=== PATIENT | male | born 1955 | race Caucasian/White ===

== ENCOUNTER 2017-05-19 10:36 | Emergency (ER) | payer MEDICARE, MEDICAID ==
[2017-05-19 11:59] LABS: ABS Basophils 0.1 10^3/ul (0-0.2); ABS Eosinophils 0 10^3/ul (0-0.6); ABS Lymphocytes 1.2 10^3/ul (1.0-4.8); ABS Monocytes 0.5 10^3/ul (0-0.8); ABS Neutrophils 3.1 10^3/ul (1.5-7.7); ABS Nucleated RBC 0 10^3/ul; Eosinophil % 0.6 % (0-6); Hematocrit 39 % (42-52); Hemoglobin 13.9 g/dl (14.0-18.0); Lymphocyte % 24.2 % (25-47); Mean Corpuscular HGB Conc 35 g/dl (31-36); Mean Corpuscular Hemoglobin 33 pg (27-31); Mean Corpuscular Volume 93 fL (80-94); Mean Platelet Volume 7 um3 (7.4-10.4); Nucleated Red Blood Cells % 0; Platelet Count 198 10^3/ul (150-450); Red Blood Count 4.25 10^6/ul (4.0-5.4); Red Cell Distribution Width 13 % (10.5-15); White Blood Count 4.9 10^3/ul (3.5-10.8)
[2017-05-19 12:12] LABS: EGFR Non-African American 91.6 (>60)
[2017-05-19] MEDS ORDERED: Iohexol 300* (CONTRAST) 10 ML SDV IV ONE (12:15)
--- NOTE | 2017-05-19 13:01 | RAD ---
indication: Left-sided facial pain and swelling COMPARISON: CT of the brain May 02, [address] scan of the maxillofacial bones was performed without intravenous contrast enhancement. Contiguous axial sections were obtained from the level of the hyoid bone to just above the frontal sinuses. Findings: There is a heterogeneous soft tissue mass extending from the left maxillary sinus that causes thinning and expansion of the borders of the maxillary sinus with destruction along the anterior margin of the sinus. The mass measures 4.0 x 6.5 cm in the axial plane and 5.7 cm in the cephalocaudal projection. Depicted best on the coronal plane images there is superior distention of the floor of the orbit which compresses the periorbital fat and nearly abuts the inferior margin of the globe. The remaining maxillofacial bones are intact. The remaining paranasal sinuses are adequately aerated. There is no cervical chain lymphadenopathy. Visualized brain: The limited views of the brain do not demonstrate any acute abnormality or extra-axial hemorrhage. IMPRESSION: There is a soft tissue mass extending from the left maxillary sinus causing thinning and expansion of the borders of the maxillary sinus and destruction of the anterior wall of the maxillary sinus. Malignancy is the primary consideration such as squamous cell carcinoma. Inverted papilloma is in the differential as well.
[2017-05-19 14:21] VITALS: BP 118/78
--- NOTE | 2017-05-19 14:31 | ED ---
April Hernández Nilda, scribed for Otto Sims MD on 05/19/17 at 1130 . Throat Pain/Nasal Congestion - HPI Summary HPI Summary: This patient is a 62 year old M presenting to [facility] [place] accompanied by with a chief complaint of constant facial swelling to left side of face for about a month. The patient rates the pain 4/10 in severity. Symptoms aggravated and alleviated by nothing. states dentist extracted teeth and pt was given abx , and the procedure was repeated one week later. - History of Current Complaint Chief Complaint: EDFacialInjury Time Seen by Provider: 05/19/17 11:20 Hx Obtained From: Patient, Family/[place] - Onset/Duration: Gradual Onset, Lasting Weeks, Still Present Cough: None - Allergies/Home Medications Allergies/Adverse Reactions: Allergies Allergy/AdvReac Type Severity Reaction Status Date / Time No Known Allergies Allergy Verified 05/02/13 09:44 PMH/Surg Hx/FS Hx/Imm Hx Endocrine/Hematology History: Reports: Hx Anemia Denies: Hx Diabetes, Hx Systemic Lupus Erythematosus Cardiovascular History: Reports: Hx Congenital Heart Disease, Hx Coronary Artery Disease Denies: Hx Congestive Heart Failure, Hx Hypertension, Other Cardiovascular Problems/Disorders Respiratory History: Reports: Hx Chronic Bronchitis Denies: Other Respiratory Problems/Disorders GI History: Denies: Other GI Disorders History: Reports: Hx Kidney Stones, Hx Renal Disease - left hydro Denies: Hx Dialysis Musculoskeletal History: Denies: Hx Rheumatoid Arthritis, Other Musculoskeletal History Sensory History: Reports: Hx Contacts or Glasses, Hx Glaucoma Denies: Hx Hearing Aid Opthamlomology History: Reports: Hx Contacts or Glasses, Hx Glaucoma Neurological History: Reports: 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 KIDNEY STONES, 2005, [facility] [place] Anesthesia Reactions: No - Immunization History Date of Tetanus Vaccine: Unk Date of Influenza Vaccine: Unk Infectious Disease History: No Infectious Disease History: Denies: Traveled Outside the [place] in Last 30 Days - Family History Known Family History: Positive: Cardiac Disease - Social History Alcohol Use: None Substance Use Type: Reports: None Smoking Status (MU): Never Smoked Tobacco Have You Smoked in the Last Year: No Review of Systems Positive: Other - facial swelling left side Negative: Shortness Of Breath All Other Systems Reviewed And Are Negative: Yes Physical Exam - Summary Physical Exam Summary: VITAL SIGNS: Reviewed. GENERAL: Patient is a well-developed and nourished female who is lying comfortable in the stretcher. Patient is not in any acute respiratory distress. HEAD AND FACE: No ecchymosis, hematomas or skull depressions. No sinus tenderness. Facial swelling right side of face. EYES: PERRLA, EOMI x 2, No injected conjunctiva, no nystagmus. EARS: Hearing grossly intact. Ear canals and tympanic membranes are within normal limits. MOUTH: Oropharynx within normal limits. Poor dental hygiene. No trismus, no swelling of tongue, airway patent. NECK: Supple, trachea is midline, no adenopathy, no JVD, no carotid bruit, no c- spine tenderness, neck with full ROM. CHEST: Symmetric, no tenderness at palpation LUNGS: Clear to auscultation bilaterally. No wheezing or crackles. CVS: Regular rate and rhythm, S1 and S2 present, no murmurs or gallops appreciated. ABDOMEN: Soft, non-tender. No signs of distention. No rebound no guarding, and no masses palpated. Bowel sounds are normal. EXTREMITIES: FROM in all major joints, no edema, no cyanosis or clubbing. NEURO: Alert and oriented x 3. No acute neurological deficits. Speech is normal and follows commands. SKIN: Dry and warm Triage Information Reviewed: Yes Vital Signs On Initial Exam: Initial Vitals Temp Pulse Resp BP Pulse Ox 98.4 F 100 20 141/83 97 05/19/17 10:43 05/19/17 10:43 05/19/17 10:43 05/19/17 10:43 05/19/17 10:43 Vital Signs Reviewed: Yes Diagnostics - Vital Signs Vital Signs Temp Pulse Resp BP Pulse Ox 05/19/17 10:43 98.4 F 100 20 141/83 97 - Laboratory Lab Results: Lab Results 05/19/17 05/19/17 05/19/17 Range/Units 11:47 11:47 11:47 WBC 4.9 (3.5-10.8) 10^3/ul RBC 4.25 (4.0-5.4) 10^6/ul Hgb 13.9 L (14.0-18.0) g/dl Hct 39 L (42-52) % MCV 93 (80-94) fL MCH 33 H (27-31) pg MCHC 35 (31-36) g/dl RDW 13 (10.5-15) % Plt Count 198 (150-450) 10^3/ul MPV 7 L (7.4-10.4) um3 Neut % (Auto) 63.5 (38-83) % Lymph % (Auto) 24.2 L (25-47) % Grant % (Auto) 10.5 H (1-9) % Eos % (Auto) 0.6 (0-6) % Baso % (Auto) 1.2 (0-2) % Absolute Neuts (auto) 3.1 (1.5-7.7) 10^3/ul Absolute Lymphs (auto) 1.2 (1.0-4.8) 10^3/ul Absolute Monos (auto) 0.5 (0-0.8) 10^3/ul Absolute Eos (auto) 0 (0-0.6) 10^3/ul Absolute Basos (auto) 0.1 (0-0.2) 10^3/ul Absolute Nucleated RBC 0 10^3/ul Nucleated RBC % 0 Sodium 138 (133-145) mmol/L Potassium 4.0 (3.5-5.0) mmol/L Chloride 107 (101-111) mmol/L Carbon Dioxide 26 (22-32) mmol/L Anion Gap 5 (2-11) mmol/L BUN 18 (6-24) mg/dL Creatinine 0.85 (0.67-1.17) mg/dL Est GFR ( Amer) 117.9 (>60) Est GFR (Non-Af Amer) 91.6 (>60) BUN/Creatinine Ratio 21.2 H (8-20) Glucose 93 (70-100) mg/dL Lactic Acid 0.7 (0.5-2.0) mmol/L Calcium 9.4 (8.6-10.3) mg/dL Total Bilirubin 0.50 (0.2-1.0) mg/dL AST 21 (13-39) U/L ALT 18 (7-52) U/L Alkaline Phosphatase 53 (34-104) U/L C-Reactive Protein < 1.00 (< 5.00) mg/L Total Protein 7.3 (6.4-8.9) g/dL Albumin 4.3 (3.2-5.2) g/dL Globulin 3.0 (2-4) g/dL Albumin/Globulin Ratio 1.4 (1-3) Result Diagrams: 05/19/17 11:47 05/19/17 11:47 Lab Statement: Any lab studies that have been ordered have been reviewed, and results considered in the medical decision making process. - CT Maxillofacial CT Interpretation Completed By: Radiologist - CT Maxillofacial, per radiologist , reveals there is a soft tissue mass extending from the left maxillary sinus causing thinning and expansion of the borders of the maxillary sinus and destruction of the anterior wall of the maxillary sinus. Malignancy is the primary consideration such as squamous cell carcinoma. Inverted papilloma is in the differential as well. Dr. Sims has reviewed this radiology report. Re-Evaluation - Re-Evaluation First Eval Re-Evaluation Time: 13:46 Comment: Reviewed imaging results with pt. EENT Course/Dx - Course Assessment/Plan: This patient is a 62 year old Male presenting to [facility] accompanied by sister with a chief complaint of constant facial swelling to left side of face for about a month. The patient rates the pain 4/10 in severity. Symptoms aggravated and alleviated by nothing. Sister states dentist extracted teeth one month ago and patient was given abx As per Sister dentis try to aspirate what he believed it was an abcess but he was unsuccessfull. Lab tests are without significant abnormalities except for slight anemia. CT Maxillofacial, per radiologist, reveals there is a soft tissue mass extending from the left maxillary sinus causing thinning and expansion of the borders of the maxillary sinus and destruction of the anterior wall of the maxillary sinus. Malignancy is the primary consideration such as squamous cell carcinoma. Inverted papilloma is in the differential as well. Dr. Sims has reviewed this radiology report. Since the pt has this new maxillary expanding mass, I discussed with the Transfer Center and they recommended that the pt be transferred to the [facility] for an ENT consult. The pt was auto-accepted by Dr. Mackenzie. The patient is hemodynamically stable, alert and oriented x3. - Differential Diagnoses Differential Diagnoses: Cellulitis, Foreign Body, Gingivitis, Mandibular/ Maxillary Trauma, Periodontic Abscess, Periodontic Disease, Post-Extraction Pain , Tonsilitis - Diagnoses Provider Diagnoses: Maxillary sinus mass - Provider Notifications Discussed Care Of Patient With: [facility] - Transfer Center Time Discussed With Above Provider: 13:58 Instructed by Provider To: Transfer - Spoke with transfer center ([facility]) who is reporting they are unable to get ENT at this point probably due to physician in surgery. She recommends transfer to [facility] for ENT evaluation. Discharge - Discharge Plan Condition: Stable Disposition: TRANS HIGHER LVL OF CARE FAC Discharge Disposition Comment: transfer to [facility] Referrals: Pete Ledezma MD [Primary Care Provider] - The documentation as recorded by the April baxter Nilda accurately reflects the service I personally performed and the decisions made by me, Otto Sims MD.
== END 2017-05-19 14:38 | disposition short-term general hospital (02) ==
LOC: ED 10:36
DX: J34.1 Cyst and mucocele of nose and nasal sinus (principal); Z86.2 Personal history of diseases of the blood and blood-forming organs and certain disorders involving the immune mechanism; Z86.79 Personal history of other diseases of the circulatory system
CPT/HCPCS: 36415; 70487; 80053; 83605; 85025; 86140; 87040; 99282; Q9967

== ENCOUNTER 2017-07-22 16:08 | Emergency (ER) | payer MEDICARE, MEDICAID ==
[2017-07-22] MEDS ORDERED: NS 0.9% 1000 ML* 1,000 ML IV ONE (17:53)
[2017-07-22 18:18] LABS: ABS Basophils 0.1 10^3/ul (0-0.2); ABS Eosinophils 0.1 10^3/ul (0-0.6); ABS Lymphocytes 0.7 10^3/ul (1.0-4.8); ABS Monocytes 1.2 10^3/ul (0-0.8); ABS Neutrophils 6.5 10^3/ul (1.5-7.7); ABS Nucleated RBC 0 10^3/ul; Eosinophil % 0.7 % (0-6); Hematocrit 29 % (42-52); Hemoglobin 9.9 g/dl (14.0-18.0); Lymphocyte % 8.3 % (25-47); Mean Corpuscular HGB Conc 34 g/dl (31-36); Mean Corpuscular Hemoglobin 32 pg (27-31); Mean Corpuscular Volume 94 fL (80-94); Mean Platelet Volume 6.8 um3 (7.4-10.4); Nucleated Red Blood Cells % 0; Platelet Count 449 10^3/ul (150-450); Red Cell Distribution Width 14 % (10.5-15); White Blood Count 8.6 10^3/ul (3.5-10.8)
[2017-07-22 18:47] LABS: EGFR Non-African American 89.2 (>60)
[2017-07-22] MEDS ORDERED: Cephalexin CAP* 500 MG PO ONE (19:40)
[2017-07-22 20:01] VITALS: BP 110/69
--- NOTE | 2017-07-22 21:39 | ED ---
ED Suture/Wound Check - HPI Summary HPI Summary: Pt. is a 62 y.o male who presents to the ER for wound evaluation. Pt. has a history of face/neck cancer and had reconstructive facial surgery performed roughly 2 weeks ago. Pt. has skin grafts taken from bilateral anterior thighs. He is not on chemotherapy. Family states that they noticed today that incisions started to look warm, red and swollen. No associated symptoms of fever, N/V, AMS. No purulent drainage. Symptoms are moderate in severity. Pt. has an apt. with his surgeon tomorrow in [place]. No current modifying factors. Is currently not on antibiotics. - History Of Current Complaint Chief Complaint: EDExtremityLower Stated Complaint: POSSIBLE INFECTION ON BOTH LEGS Time Seen by Provider: 07/22/17 17:42 Pain Intensity: 3 Pain Scale Used: 0-10 Numeric - Allergies/Home Medications Allergies/Adverse Reactions: Allergies Allergy/AdvReac Type Severity Reaction Status Date / Time No Known Allergies Allergy Verified 07/22/17 17:38 PMH/Surg Hx/FS Hx/Imm Hx Endocrine/Hematology History: Reports: Hx Anemia Denies: Hx Diabetes, Hx Systemic Lupus Erythematosus Cardiovascular History: Reports: Hx Congenital Heart Disease, Hx Coronary Artery Disease Denies: Hx Congestive Heart Failure, Hx Hypertension, Other Cardiovascular Problems/Disorders Respiratory History: Reports: Hx Chronic Bronchitis Denies: Other Respiratory Problems/Disorders GI History: Denies: Other GI Disorders History: Reports: Hx Kidney Stones, Hx Renal Disease - left hydro Denies: Hx Dialysis Musculoskeletal History: Denies: Hx Rheumatoid Arthritis, Other Musculoskeletal History Sensory History: Reports: Hx Contacts or Glasses, Hx Glaucoma Denies: Hx Hearing Aid Opthamlomology History: Reports: Hx Contacts or Glasses, Hx Glaucoma Neurological History: Reports: 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 KIDNEY STONES[place] [facility] [place] Anesthesia Reactions: No - Immunization History Date of Tetanus Vaccine: Unk Date of Influenza Vaccine: Unk Infectious Disease History: No Infectious Disease History: Denies: Traveled Outside the [place] in Last 30 Days - Family History Known Family History: Positive: Cardiac Disease - Social History Alcohol Use: None Substance Use Type: Reports: None Smoking Status (MU): Never Smoked Tobacco Have You Smoked in the Last Year: No Review of Systems Constitutional: Negative Negative: Fever, Chills Eyes: Negative ENT: Negative Cardiovascular: Negative Respiratory: Negative Gastrointestinal: Negative Positive: Other - swelling and redness to bilateral incisions on legs Neurological: Negative All Other Systems Reviewed And Are Negative: Yes Physical Exam Triage Information Reviewed: Yes Vital Signs On Initial Exam: Initial Vitals Temp Pulse Resp BP Pulse Ox 98.7 F 138 20 112/68 100 07/22/17 16:10 07/22/17 16:10 07/22/17 16:10 07/22/17 16:10 07/22/17 16:10 Vital Signs Reviewed: Yes Appearance: Positive: Well-Appearing - Pt. lying in bed in NAD. Family present. Skin: Positive: Warm, Dry Head/Face: Positive: Normal Head/Face Inspection Eyes: Positive: Normal, JIGAR Respiratory/Lung Sounds: Positive: Clear to Auscultation, Breath Sounds Present Cardiovascular: Positive: Normal, RRR Musculoskeletal: Positive: Other - Healing incisions with ricardo noted to bilateral upper anterior LEs. Wound edges are erythematous and warm. Areas of fluctuance noted to both incisions, most consistent with seroma. No induration or signs of abscess. No purulent drainage. No calf edema or pain bilaterally. Neurological: Positive: Normal Diagnostics - Vital Signs Vital Signs Temp Pulse Resp BP Pulse Ox 07/22/17 20:01 99.2 F 88 16 110/69 98 07/22/17 20:00 99.2 F 88 16 110/69 100 07/22/17 16:10 98.7 F 138 20 112/68 100 - Laboratory Lab Results: Lab Results 07/22/17 07/22/17 Range/Units 18:02 18:02 WBC 8.6 (3.5-10.8) 10^3/ul RBC 3.10 L (4.0-5.4) 10^6/ul Hgb 9.9 L (14.0-18.0) g/dl Hct 29 L (42-52) % MCV 94 (80-94) fL MCH 32 H (27-31) pg MCHC 34 (31-36) g/dl RDW 14 (10.5-15) % Plt Count 449 (150-450) 10^3/ul MPV 6.8 L (7.4-10.4) um3 Neut % (Auto) 75.7 (38-83) % Lymph % (Auto) 8.3 L (25-47) % Jennings % (Auto) 14.4 H (0-7) % Eos % (Auto) 0.7 (0-6) % Baso % (Auto) 0.9 (0-2) % Absolute Neuts (auto) 6.5 (1.5-7.7) 10^3/ul Absolute Lymphs (auto) 0.7 L (1.0-4.8) 10^3/ul Absolute Monos (auto) 1.2 H (0-0.8) 10^3/ul Absolute Eos (auto) 0.1 (0-0.6) 10^3/ul Absolute Basos (auto) 0.1 (0-0.2) 10^3/ul Absolute Nucleated RBC 0 10^3/ul Nucleated RBC % 0 Sodium 140 (139-145) mmol/L Potassium 4.1 (3.5-5.0) mmol/L Chloride 101 (101-111) mmol/L Carbon Dioxide 33 H (22-32) mmol/L Anion Gap 6 (2-11) mmol/L BUN 16 (6-24) mg/dL Creatinine 0.87 (0.67-1.17) mg/dL Est GFR ( Amer) 114.7 (>60) Est GFR (Non-Af Amer) 89.2 (>60) BUN/Creatinine Ratio 18.4 (8-20) Glucose 82 (70-100) mg/dL Calcium 8.9 (8.6-10.3) mg/dL Total Bilirubin 0.30 (0.2-1.0) mg/dL AST 14 (13-39) U/L ALT 27 (7-52) U/L Alkaline Phosphatase 83 (34-104) U/L C-Reactive Protein 23.88 H (< 5.00) mg/L Total Protein 7.0 (6.4-8.9) g/dL Albumin 3.7 (3.2-5.2) g/dL Globulin 3.3 (2-4) g/dL Albumin/Globulin Ratio 1.1 (1-3) Result Diagrams: 07/22/17 18:02 07/22/17 18:02 Lab Statement: Any lab studies that have been ordered have been reviewed, and results considered in the medical decision making process. Course/Dx - Course Course Of Treatment: Pt. presenting for evaluation of possible wound infections. He is afebrile with stable vital signs. Labs were obtained which show a normal WBC. CRP is elevated at 28. He does appear to have the start of a mild cellulitis on exam. No evidence of abscess. He does have seromas. Case discussed briefly with Dr. Parkinson. Will start on Keflex QID. Pt. already has a scheduled apt. with his sx tomorrow. Advised to return to ER sooner for fever, increased redness, swelling, purulent drainage. Pt. and family understand and agree with plan. - Clinical Impression Provider Diagnoses: Wound infection after surgery Discharge - Sign-Out/Discharge Documenting (check all that apply): Discharge - Discharge Plan Condition: Good Disposition: HOME Prescriptions: Cephalexin CAP* [Keflex CAP*] 500 mg PO QID 10 Days #40 cap Patient Education Materials: Cellulitis (ED), Seroma (DC) Referrals: Kelvin Manriquez MD [Primary Care Provider] - Additional Instructions: Follow up with your surgeon as scheduled Take antibiotic as directed Return to ER for increased redness, swelling, drainage, fever, vomiting - Billing Disposition and Condition Condition: GOOD Disposition: HOME
== END 2017-07-22 20:02 | disposition home or self-care (01) ==
LOC: ED 16:08
DX: L76.33 Postprocedural seroma of skin and subcutaneous tissue following a dermatologic procedure (principal); Y83.2 Surgical operation with anastomosis, bypass or graft as the cause of abnormal reaction of the patient, or of later complication, without mention of misadventure at the time of the procedure; Y92.9 Unspecified place or not applicable; Z85.828 Personal history of other malignant neoplasm of skin; R62.50 Unspecified lack of expected normal physiological development in childhood; Z87.442 Personal history of urinary calculi
CPT/HCPCS: 36415; 80053; 85025; 86140; 87040; 96360; 99282; A9270-GY

== ENCOUNTER 2017-08-10 17:13 | Emergency (ER) | payer MEDICARE, MEDICAID ==
[2017-08-10 18:51] VITALS: BP 0/0
== END 2017-08-10 18:51 | disposition left against medical advice (07) ==
LOC: ED 17:13
DX: G40.89 Other seizures (principal); Z53.21 Procedure and treatment not carried out due to patient leaving prior to being seen by health care provider

== ENCOUNTER 2017-11-01 18:59 | Inpatient (IN) | payer MEDICARE, MEDICAID ==
[2017-11-01] MEDS ORDERED: Aspirin 81 mg CHEW TAB* 81 MG TAB.CHEW PO ONE (19:23)
[2017-11-01] MEDS ORDERED: LORazepam INJ* 2 MG/ML 1 ML VIAL IV PUSH ONE ×2 (19:32→19:53)
[2017-11-01 19:41] LABS: ABS Basophils 0 10^3/ul (0-0.2); ABS Eosinophils 0 10^3/ul (0-0.6); ABS Lymphocytes 0.9 10^3/ul (1.0-4.8); ABS Monocytes 0.8 10^3/ul (0-0.8); ABS Neutrophils 5.1 10^3/ul (1.5-7.7); ABS Nucleated RBC 0 10^3/ul; Eosinophil % 0.3 % (0-6); Hematocrit 34 % (42-52); Hemoglobin 11.2 g/dl (14.0-18.0); Lymphocyte % 12.7 % (25-47); Mean Corpuscular HGB Conc 33 g/dl (31-36); Mean Corpuscular Hemoglobin 29 pg (27-31); Mean Corpuscular Volume 89 fL (80-94); Mean Platelet Volume 6.7 um3 (7.4-10.4); Nucleated Red Blood Cells % 0; Platelet Count 253 10^3/ul (150-450); Red Blood Count 3.81 10^6/ul (4.00-5.40); Red Cell Distribution Width 17 % (10.5-15); White Blood Count 6.8 10^3/ul (3.5-10.8)
[2017-11-01 19:49] LABS: INR 0.98 (0.77-1.02)
--- NOTE | 2017-11-01 19:53 | ED ---
Neurological HPI - HPI Summary HPI Summary: This is sahil Zapata documenting for attending Otto Sims MD. LEVEL 5 CAVEAT: The patient was unable to provide any hx due to post ictal state in the room. 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 He was over at his neighbors watching the news during onset , it was witnessed by his neighbors. They report the episode lasted about 10 minutes and in his post ictal state, he was confused and repetitive but that is his baseline. His neighbors report he has never had previous episodes of seizure. Per EMS, he lives with his sister who is a caregiver. En route, EMS reports that he was chatting all throughout about TV, baseball, and his bicycle. The patient operates at a 6 year old level. - History of Current Complaint Chief Complaint: EDSeizure Stated Complaint: SEIZURES Time Seen by Provider: 11/01/17 19:22 Hx Obtained From: EMS, Other: - neighbors who witnessed his seizure Hx From Patient Unobtainable Due To: Other - LEVEL 5 CAVEAT: The patient was unable to provide any hx due to post ictal state in the room. Onset/Duration: Sudden Onset, Started hours ago - at 1830, Resolved - but is in post ictal state Timing: Sudden Onset Current Severity: None Number of Seizures: 1 Pain Intensity: 0 Pain Scale Used: 0-10 Numeric Aggravating: Nothing Alleviating: Nothing - Allergy/Home Medications Allergies/Adverse Reactions: Allergies Allergy/AdvReac Type Severity Reaction Status Date / Time No Known Allergies Allergy Verified 08/10/17 17:15 Home Medications: Home Medications Dorzolamide/Timolol OPTH (NF) [Cosopt (NF)] 1 drop OPHTHALMIC BID 11/01/17 [ History Confirmed 11/01/17] PMH/Surg Hx/FS Hx/Imm Hx Endocrine/Hematology History: Reports: Hx Anemia Denies: Hx Diabetes, Hx Systemic Lupus Erythematosus Cardiovascular History: Reports: Hx Congenital Heart Disease, Hx Coronary Artery Disease Denies: Hx Congestive Heart Failure, Hx Hypertension, Other Cardiovascular Problems/Disorders Respiratory History: Reports: Hx Chronic Bronchitis Denies: Other Respiratory Problems/Disorders GI History: Denies: Other GI Disorders History: Reports: Hx Kidney Stones, Hx Renal Disease - left hydro Denies: Hx Dialysis Musculoskeletal History: Denies: Hx Rheumatoid Arthritis, Other Musculoskeletal History Sensory History: Reports: Hx Contacts or Glasses, Hx Glaucoma Denies: Hx Hearing Aid Opthamlomology History: Reports: Hx Contacts or Glasses, Hx Glaucoma Neurological History: Reports: 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 KIDNEY STONES, 2006, [facility] Hx Anesthesia Reactions: No - Immunization History Date of Tetanus Vaccine: Unk Date of Influenza Vaccine: Unk Infectious Disease History: No Infectious Disease History: Denies: Traveled Outside the [place] in Last 30 Days - Family History Known Family History: Positive: Cardiac Disease - Social History Alcohol Use: None Substance Use Type: Reports: None Smoking Status (MU): Never Smoked Tobacco Have You Smoked in the Last Year: No Review of Systems Neurological: Other - seizure (in his post ictal state, he was confused and repetitive but that is his baseline) All Other Systems Reviewed And Are Negative: No Physical Exam - Summary Physical Exam Summary: VITAL SIGNS: Reviewed. GENERAL: I was unable to get any history. The patient is a MALE that didnt seem to be in any distress but doesnt answer to any questions. He seems to be in a post ictal state. HEAD AND FACE: No signs of trauma. No ecchymosis, hematomas or skull depressions. No sinus tenderness. EYES: PERRLA, EOMI x 2, No injected conjunctiva, no nystagmus. LUNGS: Clear to auscultation bilaterally. No wheezing or crackles. CVS: Regular rhythm, slightly tachycardic, S1 and S2 present, no murmurs or gallops appreciated. ABDOMEN: Soft, non-tender. No signs of distention. No rebound no guarding, and no masses palpated. Bowel sounds are normal. EXTREMITIES: FROM in all major joints, no edema, no cyanosis or clubbing. He is actively moving all extremities. NEURO: Post ictal state. Unable to answer questions. Doesnt follow commands GCS 14 Triage Information Reviewed: Yes Vital Signs On Initial Exam: Initial Vitals Temp Pulse Resp BP Pulse Ox 98.7 F 112 23 121/73 97 11/01/17 19:06 11/01/17 19:06 11/01/17 19:06 11/01/17 19:06 11/01/17 19:06 Vital Signs Reviewed: Yes Diagnostics - Vital Signs Vital Signs Temp Pulse Resp BP Pulse Ox 11/01/17 19:38 16 11/01/17 19:07 106 19 118/72 98 11/01/17 19:06 98.7 F 111 22 121/73 97 - Laboratory Lab Results: Lab Results 11/01/17 Range/Units 19:35 WBC 6.8 (3.5-10.8) 10^3/ul RBC 3.81 L (4.00-5.40) 10^6/ul Hgb 11.2 L (14.0-18.0) g/dl Hct 34 L (42-52) % MCV 89 (80-94) fL MCH 29 (27-31) pg MCHC 33 (31-36) g/dl RDW 17 H (10.5-15) % Plt Count 253 (150-450) 10^3/ul MPV 6.7 L (7.4-10.4) um3 Neut % (Auto) 74.5 (38-83) % Lymph % (Auto) 12.7 L (25-47) % Borden % (Auto) 11.9 H (0-7) % Eos % (Auto) 0.3 (0-6) % Baso % (Auto) 0.6 (0-2) % Absolute Neuts (auto) 5.1 (1.5-7.7) 10^3/ul Absolute Lymphs (auto) 0.9 L (1.0-4.8) 10^3/ul Absolute Monos (auto) 0.8 (0-0.8) 10^3/ul Absolute Eos (auto) 0 (0-0.6) 10^3/ul Absolute Basos (auto) 0 (0-0.2) 10^3/ul Absolute Nucleated RBC 0 10^3/ul Nucleated RBC % 0 Result Diagrams: 11/02/17 05:21 11/02/17 05:22 Lab Statement: Any lab studies that have been ordered have been reviewed, and results considered in the medical decision making process. - Radiology CXR Radiology Interpretation Completed By: ED Physician - No acute cardiothoracic pathology. Pending radiologist official interpretation. - CT Brain CT CT Interpretation Completed By: Radiologist - No acute hemorrhage. Encephalomalacia of bilateral frontal lobes. 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 ED physician has reviewed this radiology report. Course/Dx - Course Assessment/Plan: This patient is a 62-year-old male who presents to the emergency department with a chief complaint of having a seizure. Im unable to obtain any history from the patient seemed he seems to be in a postictal state. However there AMS crew reports that the patient has history of developmental delay mild MR and seizures. They report that he usually goes every night to his neighbors house to watch the news and [place]. Today he was no difference onto he developed multiple seizures, unknown amount of seizures and also no length of the seizures. The patient seemed to be very uncomfortable moving in the stretcher all over the place therefore the patient was given Ativan to obtain a head CT and blood work. The patient was given IV fluids. Test results without any significant abnormality except for slight normocytic normochromic anemia, potassium at 3.3, glucose 163 year, lactic acid of 11.6. At this point the patient is resting comfortably in the stretcher. Head CT impression: No acute hemorrhage. Encephalomalacia of bilateral frontal lobes. Postsurgical changes in the left maxillary sinus carcinoma. Reassessment at 9: 50 PM: The patient is resting comfortably on the stretcher, vital signs are stable, at this point I discussed the case with Dr. Armstrong from neurology and he recommends fosphenytoin 18 mg per KG, and EEG in the morning, and admission to the hospitalist. I discussed the case with Dr. Miranda who accepted the patient for admission. At this point the patient is stable. We will follow- up the lactic acid of 11.6, I dont think the patient is having sepsis and in the other hand I think the lactic acid is high because of the multiple seizure episodes tonight. However I did send blood cultures and a repeat lactic acid. This will be followed by the hospitalist. - Differential Dx Differential Diagnoses Neuro: Positive: Other - seizure - Diagnoses Provider Diagnoses: Seizure - Physician Notifications Discussed Care Of Patient With: Arianna Armstrong Time Discussed With Above Provider: 21:30 Instructed by Provider To: Other - Consulted Dr. Armstrong who says to give the patient Kepra and to get a UA and EEG. Consulted Dr. Miranda at 2135 who accepts the patient for admission. - Critical Care Time Critical Care Time: 30-74 min - 30 minutes Discharge - Sign-Out/Discharge Documenting (check all that apply): Patient Departure - Discharge Plan Condition: Stable Disposition: ADMITTED TO [facility] - Billing Disposition and Condition Condition: STABLE Disposition: Admitted to [facility]
[2017-11-01 20:03] LABS: EGFR Non-African American 78.7 (>60)
[2017-11-01] MEDS ORDERED: NS 0.9% 1000 ML* 1,000 ML IV ONE (21:12)
[2017-11-01] MEDS ORDERED: FOSPHENYTOIN IVPB ONE (21:40)
[2017-11-01] MEDS ORDERED: NS 0.9% IVPB ONE (21:40)
[2017-11-01] MEDS ORDERED: Ondansetron INJ* 2 MG/ML VIAL IV PRN (22:13)
[2017-11-01] MEDS ORDERED: Acetaminophen TAB* 325 MG PO PRN (22:13)
[2017-11-01] MEDS ORDERED: Potassium Chlor TAB* 20 MEQ TAB.ER PO ONE (22:28)
[2017-11-02 01:26] LABS: Urine Appearance Clear; Urine Blood 1+ (Negative); Urine Color Straw; Urine Ketones Negative (Negative); Urine Protein Negative (Negative); Urine Red Blood Cell Trace(0-2/hpf) (Absent); Urine Specific Gravity 1.008 (1.010-1.030); Urine Urobilinogen Negative (Negative); Urine White Blood Cell Trace(0-5/hpf) (Absent)
--- NOTE | 2017-11-02 01:56 | HP ---
CC: Dr. Manriquez; Dr. Armstrong * HISTORY AND PHYSICAL: DATE OF ADMISSION: 11/01/17 PRIMARY CARE PROVIDER: Dr. Manriquez. ATTENDING PHYSICIAN WHILE IN THE HOSPITAL: Dr. Dhaval Miranda * (report dictated by Jorge Power NP). CHIEF COMPLAINT: Seizure. HISTORY OF PRESENT ILLNESS: Mr. Goodman is a 62-year-old male patient who has a history of seizure disorder. This started after he sustained a subdural hematoma, according to the family due to a fall. He says he had this disorder for about 14 years, has been pretty well controlled. He has not had a seizure in some time. He also has a history of a complete heart block, status post pacemaker. He has a history of congenital heart disease, status post open heart surgery at infancy, the details of which were unclear. 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 He received radiation therapy for this with Dr. Barroso , which he according to the family has finished. He is coming into the ED today. The patient does not really recall much of the events that happened he was at a neighbor's house. He says he was watching TV and then the next thing he knew he woke up in the hospital. According to the EMS notes and neighbors reports, and the family that is present, it is really unable to give history because they were not there; but according to the EMS notes, the patient was found to be having a tonic-clonic seizure. It was witnessed by the neighbors that lasted approximately a minute. The patient was brought into the ER for evaluation. Initially, the patient was sedated, not answering questions, was pulling vital sign monitor. He has improved; however, there was concern because of the seizure and the fact that he had not had one for a long, we were asked to evaluate for admission. The patient states that last night, he did have episodes of vomiting. He states he vomited once last night, he is nauseated but he had no abdominal discomfort. He denied having any recent fevers or cough, shortness of breath. No chest pain, no shortness of breath, no rhinorrhea, no sore throat, no diarrhea was reported. He denies having any pain now. He is unsure if he hit his head or not. The patient does state that his weight been has stable and has not been losing weight. There has been no reports of facial droop and the family says that his facial features appear to be symmetric. He did have surgery recently for resection of the sinus mass. Again, no reports of weakness or focal weakness to one leg or to the arm. The patient came into the ED. He was loaded with fosphenytoin; and, because of the seizure activity, we were asked to evaluate for admission. PAST MEDICAL HISTORY: Significant for: 1. Seizure disorder. 2. History of complete heart block. 3. History of congenital heart disease. 4. Subclavian steal syndrome. 5. Subdural hematoma. 6. 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 PAST SURGICAL HISTORY: 1. He has had open heart surgery as an infant. 2. Pacemaker placement. 3. Tumor resection to the left sinus area in the left face. HOME MEDICATIONS: Include: 1. Cosopt 1 drop ophthalmic to right eye b.i.d. 2. Latanoprost 1 drop right eye b.i.d. 3. Aspirin 81 mg daily. 4. Zofran 4 mg every 6 hours as needed. 5. MS Contin 15 mg p.o. b.i.d. 6. MS Contin 30 mg p.o. b.i.d. We need to clarify the dose, if he is taking 45 or if he is taking 15. 7. Keppra 1000 mg p.o. b.i.d. ALLERGIES TO MEDICATIONS: Include no known drug allergies. FAMILY HISTORY: Mother had breast cancer. Father had cancer as well. SOCIAL HISTORY: He is a former smoker. He does not drink alcohol. Surrogate decision makers are his sisters, Jessica and Michelle. REVIEW OF SYSTEMS: There is no documented fever. There is no significant weight change reported. No double vision. No ear discharge. No rhinorrhea. No sore throat. No thyroid enlargement. He denied having any chest pain. There was no orthopnea. There was no nocturnal dyspnea reported. No abdominal pain. No nausea or vomiting. No dysuria. No frequency. There was a seizure and loss of consciousness. No pruritus and no skin ulcerations. Review of 14 systems was completed, all others negative. PHYSICAL EXAMINATION GENERAL: At this time, Mr. Goodman is a 62-year-old male patient. He is sitting in the ED stretcher. He does not appear to be in any acute distress. VITAL SIGNS: Blood pressure 123/77, temperature 99.8, his pulse was 97, respirations 18, O2 sat 96%. HEENT: Head: He does have again noted swelling to his nose and to the left side of his face. This has been there since the surgery according to family. He also has some ecchymosis noted to his right zygomatic arch. Otherwise, atraumatic, normocephalic. Eyes: EOMs are intact. His sclerae were anicteric and not pale. Throat: Oral mucosa appears to be dry. No oropharyngeal erythema. NECK: Supple. LUNGS: Clear to auscultation. No wheezes, rales, or rhonchi. HEART: Sounds S1, S2. He had a regular rate and rhythm. No murmurs, rubs, or gallops. ABDOMEN: It was soft. It was flat. It was nontender. Bowel sounds were present. EXTREMITIES: Pulses were 2+ throughout. He has got good strength, 5/5 strength in all 4 extremities. NEUROLOGIC: The patient is awake. He is alert. He knows the month. He knows the place and the year. He knows his name. His vkhugc-iy-arph was intact bilaterally. Weys-jy-xgss intact bilaterally. No weakness to the upper or lower extremities was seen on exam. He does have a cataract to the left eye. It is difficulty to see the pupil, but it did appear to be equal and reactive, compared to the right. He had no gross focal deficit that I could see on exam. SKIN: Intact. DIAGNOSTIC STUDIES/LAB DATA: His labs are revealing a WBC of 6.8, RBC of 3.81 , hemoglobin of 11.2, hematocrit of 34, and platelet count of 253. The INR was 0.98. PTT of 28.7. Sodium 138, potassium was 3.3, chloride of 105. His bicarb was 15. BUN 9, creatinine 0.97. Glucose 163. Lactic 11.6. Calcium of 8, mag 2.1. Total bili 0.4, AST 15, ALT 10, alk phos 72. CK 85. CK-MB 2.1. Troponin 0. BNP of 14. TSH of 2.03. He had a CT of the brain, impression: No acute hemorrhage, encephalomalacia of bilateral frontal lobes, postsurgical changes and the left maxillary sinus carcinoma as described above. He had chest x-ray, did not appreciate any acute infiltrates. He has a pacemaker noted. There is no effusion noted as well. Old medical records reviewed. ASSESSMENT AND PLAN/RECOMMENDATIONS: Mr. Goodman is a 62-year-old male patient coming into the emergency department today with complaints of a seizure. We were asked to evaluate for admission. He will be admitted under observation status for: 1. Seizure. Again, he has not had a seizure in several years. Etiology as to why he had one now is unclear at this point; however, I do think we should check obviously his levels. The patient's sister makes sure he takes all of his medications, so I do not think compliance is the culprit here, but again I will check levels. We did touch base with Dr. Armstrong. He recommended loading with fosphenytoin. Given his history of carcinoma, I think he should get an MRI of the brain with and without contrast to make sure there is no metastasis if the pacemaker is compatible. We will place him on seizure precautions, neuro checks. He will get an EEG in the morning and we will continue to follow. 2. History of congenital heart disease. Follow with Dr. Devine. Continue meds as prescribed. 3. Subclavian steal syndrome. Again, follow up with PCP. Continue with current medical regimen. 4. History of subdural hematoma, not an active issue currently. CT brain was negative. 5. Left sinus cancer. Follow with Dr. Barroso. I am going to get a repeat CT of the maxillofacial bone because of the possible trauma that he had. With the fall, he does have some bruise to the right side of his face and I will also get the MRI of the brain with and without to make sure there is no metastases that might have been not seen clearly on CT brain if pacemaker is compatible. 6. DVT prophylaxis. He is high risk. I will place him on heparin subcu. 7. Code status. Full code. 8. Fluids, electrolytes, and nutrition. Regular diet. TIME SPENT: Time spent on admission was 60 minutes, greater than half of the time was spent [id number] with the patient obtaining my history and physical, other half of the time spent going over the plan of care with the patient and implementing the plan of care. I did discuss the plan of care with my attending , Dr. Miranda, he is in agreement. JORGE POWER, JESSICA [id number]/[facility] #: [id number] DIAMOND
[2017-11-02] MEDS: Heparin VIAL(*) 5000 UNITS/ML VIAL (FIVE THOUSAND) SUBCUT SCH ×3 (05:47→22:28)
[2017-11-02 05:56] LABS: ABS Basophils 0 10^3/ul (0-0.2); ABS Eosinophils 0 10^3/ul (0-0.6); ABS Lymphocytes 0.4 10^3/ul (1.0-4.8); ABS Monocytes 0.8 10^3/ul (0-0.8); ABS Neutrophils 4.2 10^3/ul (1.5-7.7); ABS Nucleated RBC 0 10^3/ul; Eosinophil % 0.3 % (0-6); Hematocrit 32 % (42-52); Hemoglobin 10.7 g/dl (14.0-18.0); Lymphocyte % 6.6 % (25-47); Mean Corpuscular HGB Conc 34 g/dl (31-36); Mean Corpuscular Hemoglobin 29 pg (27-31); Mean Corpuscular Volume 87 fL (80-94); Nucleated Red Blood Cells % 0.1; Platelet Count 210 10^3/ul (150-450); Red Blood Count 3.64 10^6/ul (4.00-5.40); Red Cell Distribution Width 18 % (10.5-15); White Blood Count 5.4 10^3/ul (3.5-10.8)
[2017-11-02 06:14] LABS: EGFR Non-African American 105.9 (>60)
--- NOTE | 2017-11-02 07:39 | RAD ---
INDICATION: Change of mental status COMPARISON: CT 7 study the brain July 26, 2017 TECHNIQUE: Noncontrast axial source images were acquired from the skull base to the vertex. This examination is limited due to the patient's ability to cooperate for the examination. There is some motion artifact. Multiple images were repeated FINDINGS: Ventricles/sulci: There is cortical atrophy with compensatory dilatation of the CSF spaces. Brain parenchyma: There is subfrontal encephalomalacia. There is no acute focal parenchymal finding, evidence of intracranial mass, or intracranial mass effect. Intracranial hemorrhage:None. Extra-axial spaces: There are no abnormal extra axial fluid collections or evidence of extra-axial mass. Calvarium: There is no calvarial fracture or other calvarial abnormality. Scalp: There is no evidence of scalp or extracalvarial soft tissue abnormality. Paranasal sinuses/mastoid: There is postsurgical change in the left maxillary antrum and ethmoid sinuses with soft tissue density and bony erosion. The findings are compatible with a sinus mass which extends into the temporal fossa the appearance is consistent with a sinus carcinoma which has been described on earlier maxillofacial CT examinations as well. Other: None. IMPRESSION: Subfrontal encephalomalacia with mild diffuse cortical parenchymal loss. Left sinus mass. No acute cranial findings
--- NOTE | 2017-11-02 07:48 | RAD ---
HISTORY: seizure, trauma, hx of sinus CA, COMPARISONS: May 19, 2017 TECHNIQUE: Multiple contiguous axial CT scans were obtained of the face without intravenous contrast, with coronal and sagittal multiplanar reformations. FINDINGS: Evaluation is limited by patient motion artifact. BONES: The patient is status post resection of the left face including portions of the left maxilla and hard palate. There is no acute fracture. ORBITS: There has been partial resection of the inferior orbital wall on the left. The globes are round. The optic nerves are symmetric. The extraocular musculature is normal. There is no post septal or intraconal inflammatory change. There is no retrobulbar hematoma. PARANASAL SINUSES: There is mucosal thickening of the right maxillary sinus, ethmoid air cells, sphenoid sinus. There is no air-fluid level. There is been resection of the left maxillary sinus. There is ill-defined soft tissue within the surgical cavity measuring approximately 3.2 x 1.9 cm in size. BRAIN AND SOFT TISSUE: As noted above, there is ill-defined soft tissue within the surgical resection cavity of the left maxilla with evidence of a graft. There is inferior frontal encephalomalacia bilaterally. OTHER: There is a left mastoid effusion. IMPRESSION: 1. SURGICAL RESECTION OF THE LEFT FACE. THERE IS ILL-DEFINED SOFT TISSUE IN THE SURGICAL CAVITY WHICH MAY REFLECT POST SURGICAL CHANGE VERSUS RESIDUAL/RECURRENT NEOPLASM. RECOMMEND CONSIDERATION OF CORRELATION WITH CONTRAST ENHANCED MRI, COMPARISON TO PREVIOUS POSTSURGICAL IMAGING, OR PET/CT. 2. NO ACUTE OSSEOUS INJURY TO THE FACE. 3. LEFT MASTOID EFFUSION. 4. MODERATE SINUS MUCOSAL INFLAMMATORY DISEASE, WITHOUT AIR-FLUID LEVEL TO SUGGEST ACUTE SINUSITIS. R0
--- NOTE | 2017-11-02 08:03 | RAD ---
INDICATION: Nausea COMPARISON: November 29, 2014 TECHNIQUE: An AP portable view obtained at 2150 hours is submitted. FINDINGS: Bones/Soft Tissues: There are no acute bony findings. There is left-sided cardiac pacemaker Cardiomediastinal: The cardiomediastinal silhouette is normal. Lungs: There are no infiltrates. Pleura: There are no pleural effusions. Other: None IMPRESSION: NO ACTIVE DISEASE.
[2017-11-02] MEDS ORDERED: levETIRAcetam TAB* 500 MG PO SCH (09:00)
[2017-11-02] MEDS ORDERED: Morphine TAB Extended Release (*) 15 MG TAB.ER PO SCH (09:00)
[2017-11-02] MEDS ORDERED: Phenytoin CAP(*) 100 MG CAP.ER PO SCH (09:00)
[2017-11-02] MEDS ORDERED: Aspirin TAB* 325 MG PO SCH (09:00)
[2017-11-02] MEDS ORDERED: Iohexol 300* (CONTRAST) 10 ML SDV IV ONE (09:29)
[2017-11-02] MEDS: Latanoprost 0.005%* 2.5 ml BTL RIGHT EYE SCH ×2 (10:08→23:09)
[2017-11-02] MEDS: Dorzolamide/Timolol OPTH (NF) 10 ML BOT RIGHT EYE SCH ×2 (11:42→23:09)
[2017-11-02] MEDS: Aspirin 81 mg CHEW TAB* 81 MG TAB.CHEW PO SCH (12:29)
--- NOTE | 2017-11-02 12:41 | CONS ---
NEUROLOGY CONSULTATION REPORT: DATE OF CONSULT: 11/02/17 CONSULTING PROVIDER: Jorge Power NP. REASON FOR NEUROLOGY CONSULT: Breakthrough seizure in a the patient with known history of posttraumatic epilepsy. CHIEF COMPLAINT: Seizure. HISTORY OF PRESENT ILLNESS: Mr. Figueroa Goodman is a 62-year-old right-handed man with developmental delay since due to congenital heart disease causing anoxic brain injury at requiring emergent cardiac surgery. He also had traumatic subdural hematoma in 2003 after slipping and hitting his head while working in the garage. Since then he has suffered with seizures and is on levetiracetam 1000 mg twice daily. The patient does not have an outpatient neurologist. The patient also has sinus cancer, status post resection of the left jaw and 6-week course of localized radiation therapy. Last session ended 2 months ago. He also has history of glaucoma. The patient lives with his sister, Jessica. His sister, Omayra, is at bedside. Omayra provided most of the history. Apparently, Figueroa was watching the baseball game with his neighbor, Kodak yesterday. The phone number to contact Kodak is unavailable and therefore the history is extremely limited as Kodak was the only witness to the patient's seizures. According to Omayra, Kodak had contacted EMS as the patient had sudden onset generalized convulsion that lasted approximately 1 to 2 minutes. The patient did lose consciousness. He had no bowel or bladder incontinence. He had no tongue laceration. On average, the patient has 1 to 2 seizures a year. His last seizure was 1 year ago. He is adherent to his AED therapy, levetiracetam 1 ,000 mg twice daily. The patient was loaded with fosphenytoin last night as he was postictal. The fosphenytoin dose was 1227 mg IV. His phenytoin level yesterday was within normal range at 19 and today at 17.3. He was continued on phenytoin 100 mg 3 times daily. Currently, the patient is complaining of slight dizziness and unsteadiness in his gait. He has a pacemaker and is unable to undergo any MRI to look for any metastatic disease. He denied any headaches, visual disturbance, chest pain, or shortness of breath. He denied any change in his speech or any focal weakness. He has been walking to the rest room with minimal assist. Apparently, during the radiation therapy in August of 2017, the patient had symptoms of lightheadedness and fogginess. There was concerned that he may be having seizures, but it turned out that he was dehydrated. After IV fluid, the patient returned to his baseline self. PAST MEDICAL HISTORY: Seizure disorder; sinus cancer, status post radiation therapy and resection; open heart surgery as a child; subclavian steal syndrome ; baseline developmental delay. MEDICATIONS: 1. Aspirin 81 mg daily. 2. Levetiracetam 1000 mg twice daily. 3. Ondansetron every 8 hours as needed for nausea. 4. Dorzolamide/timolol eye drops 1 drop ophthalmic twice daily. ALLERGIES: No known drug allergies. FAMILY HISTORY: Mother suffered breast cancer and at age 43. Father had small cell carcinoma. SOCIAL HISTORY: The patient is on SSI. He denied any tobacco or alcohol use. REVIEW OF SYSTEMS: A 14-point review of systems was obtained and otherwise negative, except for what was mentioned in the HPI. PHYSICAL EXAM: Vitals: Temperature 98.2, pulse rate of 77, respirations of 16 , oxygen saturation of 98%, blood pressure of 117/62. General: Ill-appearing, frail man, in no acute distress. He is cooperative. Head: Dysmorphic features of the face with slight swelling and tightness of the neck muscles as well as the face muscles on the left. He has some periorbital edema on the left. Eyes: Conjunctivae/corneas are clear. There is no sclerae icterus. Neck is supple and symmetrical with tightness of the neck muscles on the left and fibrosis of the skin on the left. There is no carotid bruits. Lungs are clear to auscultation bilaterally with nonlabored breathing. Cardiovascular: Regular rate and rhythm. Normal S1, S2. Radial pulses are palpable. Extremities: Normal range of motion with no cyanosis. Skin: No skin lesions or lacerations. Psych: Affect is broad and normal mood. Neurologic: Mental Status: The patient is awake and alert to self and date, but not time or place. He has some moderate psychomotor slowing. He also has moderate dysarthria. Cranial Nerves: Normal confrontation bilaterally, but he does have disconjugate gaze with inability to abduct the right eye. There is normal consensual response. There is no ptosis. Sensation is intact on the forehead, cheeks, and jaw region bilaterally. He has no facial droop, but there is degree of dysmorphic features on the face due to postsurgical changes. He is able to hear throughout the history process. Symmetric palatal elevation. There is normal strength to shoulder shrug bilaterally. Tongue is symmetrical and midline with no atrophy or fasciculation. Motor Examination: No abnormal movements or pronator drift. He has got normal bulk and tone throughout upper and lower extremities. He can move both upper and lower distal and proximal muscle symmetrically 5/5. Reflexes right/left: Brachioradialis 2/2, biceps 2/2 , triceps 2/2, patella 2/2, ankle 2/2, plantarflexor/flexor. Sensation is intact to light touch throughout. Normal vibration and proprioception at the great toes. Coordination: Normal [id number] bilaterally. Gait is slightly wide based and ataxic gait, swings towards the right, but no falls. LABORATORY DATA AND IMAGING STUDIES: WBC 5.4, hemoglobin of 10.7, hematocrit of 32, platelet count of 210. INR of 0.98, APTT 28.7. Lactic acid on admission was 11.6, but now is 0.7. Sodium of 141, potassium of 3.7, chloride of 109, carbon dioxide of 28, anion gap of 4, creatinine of 0.75, magnesium level of 2.1. Urinalysis was completed and there was no evidence of dysuria. TSH is 2.03. CT head without contrast showed subfrontal encephalomalacia with mild diffuse cortical parenchymal loss. Left sinus mass. No acute cranial findings. Maxillofacial CT was ordered and obtained on 11/01/17 that showed surgical resection of the left face. There is ill-defined soft tissue in the surgical cavity, which may reflect postsurgical changes versus residual recurrent neoplasm. Recommend consideration of correlation with contrast- enhanced MRI comparison to previous postsurgical images or PET/CT scan. ASSESSMENT: 1. Mr. Figueroa Goodman is a 62-year-old man with history of posttraumatic epilepsy. He is tolerating levetiracetam. There is no history of non- compliance. The patient presented with breakthrough generalized seizure. It is unclear why the patient had a breakthrough seizure as he has no evidence of any underlying infection or electrolyte imbalance. However, given that he recently completed 6-week course of radiation therapy to the face, he is at risk of radiation-induced white matter disease which can increase his risk for seizures. I agree with a ruling out metastatic disease to the brain given his recent diagnosis of sinus squamous cell carcinoma. Unfortunately, an MRI cannot be completed due to the patient having a pacemaker, but a CT head and CT maxillofacial with contrast can be done. 2. Developmental delay. The patient appears to be near his baseline. 3. Medication toxicity. The patient is complaining of dizziness and was ataxic on examination. I suspect that this is related to phenytoin. Currently , his levels are high, but not toxic. I suspect this will improve within the next 24 hours. PLAN: 1. I will discontinue phenytoin and increase his levetiracetam to 1250 mg b.i.d. If he has breakthrough seizure again, we will restart the phenytoin. 2. He needs to follow up with Dr. Tristan Cardoza in 2 to 3 weeks. [address] Obt[address] a [address] head with contrast to evaluate for any metastatic disease. 4. Neuro checks every 4 hours. 5. Seizure precautions. 6. The patient should not be driving, operating heavy machinery, or swimming unattended. I discussed this with the patient and his sister, Elissa. 7. We will continue to monitor for the next 2-day as the patient does not feel ready to be discharged and we are still pending further workup. 8. Please obtain the routine EEG to evaluate for any epileptiform abnormalities. 9. I will continue to follow. TIME SPENT: I spent a total of 75 minutes and greater than 50% of that was spent directly, reviewing the medical chart, obtaining history, examining the patient, education counseling, and discussing the treatment plan. [id number]/[facility] #: [id number] [facility] HOSPITALAleksandra
--- NOTE | 2017-11-02 12:49 | PN ---
Subjective Date of Service: 11/02/17 Interval History: HOSPITALIST PROGRESS NOTE Patient seen and examined at bedside. Care reviewed and d/w Amaury Antonio RN. He was sleeping initially, but arousable to voice. Denies GRIFFIN, N/V, requested to go to the bathroom. Very unsteady on his feet while ambulating, with broad base gait and stumbling around. Family History: Unchanged from Admission Social History: Unchanged from Admission Past Medical History: Unchanged from Admission Objective Active Medications: Acetaminophen (Tylenol Tab*) 650 mg PO Q4H PRN PRN Reason: FEVER/PAIN Aspirin (Aspirin 81 Mg Chew Tab*) 81 mg PO DAILY [facility] Last Admin: 11/02/17 12:29 Dose: 81 mg Dorzolamide/Timolol (Cosopt (Nf)) 1 drop RIGHT EYE BID [facility]; Protocol Last Admin: 11/02/17 11:42 Dose: Not Given Heparin Sodium (Porcine) (Heparin Vial(*)) 5,000 units SUBCUT Q8HR [facility] Last Admin: 11/02/17 05:47 Dose: 5,000 units Latanoprost (Xalatan 0.005%*) 1 drop RIGHT EYE BID [facility] Last Admin: 11/02/17 10:08 Dose: 1 drop Levetiracetam (Keppra Liq*) 1,250 mg PO BID [facility] Ondansetron HCl (Zofran Inj*) 4 mg IV Q6H PRN PRN Reason: NAUSEA Vital Signs - 8 hr 11/02/17 11/02/17 11/02/17 07:28 08:00 08:08 Temperature 98.2 F 98.2 F Pulse Rate 77 77 Respiratory 16 16 16 Rate Blood Pressure 117/62 117/62 (mmHg) O2 Sat by Pulse 98 98 Oximetry 11/02/17 11:33 Temperature 98.8 F Pulse Rate 92 Respiratory 16 Rate Blood Pressure 99/58 (mmHg) O2 Sat by Pulse 100 Oximetry Oxygen Devices in Use Now: None Appearance: Elderly gentleman lying in bed in NAD. Eyes: No Scleral Icterus Ears/Nose/Mouth/Throat: Mucous Membranes Moist, - - Left face edema, unchanged as per sister Neck: Trachea Midline Respiratory: Symmetrical Chest Expansion and Respiratory Effort, Clear to Auscultation Cardiovascular: RRR - Normal S1 and S2 Abdominal: NL Sounds; No Tenderness; No Distention Neurological: Alert and Oriented x 3, - - Unsteady gait Result Diagrams: 11/02/17 05:21 11/02/17 05:22 Assess/Plan/Problems-Billing Assessment: Mr. 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 - Patient Problems (1) Seizure Comment: - H/o seizure disorder, compliant with Phenytoin (sister gives him the medication). - Phenytoin level 17.3. - Awaiting Neurology consult. - Cannot have MRI due to pacer - d/w Neuro - will check CT brain with contrast. - PT consult. 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 - Awaiting records from [facility] - plan to f/u with PCP/ENT as outpatient. (3) DVT prophylaxis Comment: - SQ heparin. (4) Full code status Status and Disposition: Change to inpatient.
--- NOTE | 2017-11-02 15:13 | RAD ---
HISTORY: Seizure COMPARISONS: November 01, 2017, May 02, 2013, CT of the face dated November 01, 2017. TECHNIQUE: Multiple contiguous axial CT scans were obtained of the head with intravenous contrast. FINDINGS: HEMORRHAGE/INFARCT: There is no hemorrhage or acute infarct. MASSES/SHIFT: There is no mass or shift. EXTRA-AXIAL SPACES: There are no extra-axial fluid collections. SULCI AND VENTRICLES: There is diffuse and proportional enlargement of the sulci and ventricles. CEREBRUM: There is stable encephalomalacia of the inferior frontal lobes bilaterally. BRAINSTEM: There are no focal parenchymal abnormalities. CEREBELLUM: There are no focal parenchymal abnormalities. VESSELS: The vessels are grossly normal. PARANASAL SINUSES: There is post surgical change to the left maxilla involving the left maxillary sinus. Again noted is soft tissue density within the surgical cavity. ORBITS: The orbits are unremarkable. BONES AND SOFT TISSUE: No bone or soft tissue abnormalities are noted. OTHER: There is no abnormal enhancement. IMPRESSION: 1. NO ACUTE INTRACRANIAL PATHOLOGY. 2. STABLE BIFRONTAL ENCEPHALOMALACIA. 3. AGAIN NOTED IS POST SURGICAL CHANGE TO THE LEFT MAXILLA. 4. NO ABNORMAL ENHANCEMENT.
[2017-11-02] MEDS: PTO: Latanoprost 0.005%* 2.5 ml BTL RIGHT EYE SCH (22:30)
[2017-11-02] MEDS: PTO: Dorzolamide/Timolol OPTH (NF) 10 ML BOT RIGHT EYE SCH (22:31)
[2017-11-02] MEDS: levETIRAcetam LIQ* 500 MG/5 ML UDC PO SCH (22:32)
--- NOTE | 2017-11-02 23:24 | EEG ---
ELECTROENCEPHALOGRAPHY: DATE OF SERVICE: 11/02/17 - ROOM #449 DATE READ: 11/02/17. EEG ORDERED BY: Dr. Otto Sims MD. MEDICATIONS: 1. Aspirin 81 mg. 2. Keppra 1000 mg twice daily. 3. Dilantin 100 mg 3 times daily. 4. Heparin. 5. Tylenol. 6. Zofran. HISTORY: This is a 62-year-old man with posttraumatic epilepsy who presented with a breakthrough seizure. The patient was loaded with fosphenytoin and seems to be back to his normal self except for his complaining of intermittent dizziness and ataxia. This EEG was requested to evaluate for epileptiform abnormalities or electrographic seizures. CLINICAL STATE: Awake and sleep. DESCRIPTION: The waking background showed a retained organization and discernable anterior-posterior voltage and frequency gradients. There was well- defined posterior dominant rhythm of 8.5 Hz which was symmetrical and showed normal reactivity. There were diffuse polymorphic, medium amplitude delta and theta frequencies slowing lasting 1-2 seconds, the slowing was at a rate of 3-7 Hz. In addition, there was excessive, diffuse, high frequency beta with a range of 16-20 Hz seen throughout the recording. Lastly, there was superimposed, intermittent, left temporal slowing maximal at T3-T4 with a frequency at 2-4 Hz lasting for 1-2 seconds. Attenuation of the posterior rhythm accompanied drowsiness. There was also sleep spindles, vertex waves, and K complexes symmetrically seen suggesting stage 2 sleep. Throughout the recording, there were no clear epileptiform discharges or electrographic seizures. IMPRESSION: This is an abnormal awake and sleep EEG due to the presence of: 1. Intermittent diffuse slowing. 2. Diffuse excessive beta. 3. Superimposed left temporal paroxysmal slowing. These findings are suggestive of mild, nonspecific global encephalopathy, which can be seen in the setting of history of anoxic brain injury, traumatic brain injury, metabolic-toxic disturbance, or postictal state. In addition, the focal slowing in the left temporal lobe suggests focal structure abnormality and neuronal dysfunction in that region. Lastly, the excessive beta frequency can be seen in the setting of barbiturate or benzodiazepine use. There were no electrographic seizures seen throughout the recording. [id number]/[facility] #: [id number] [facility]
[2017-11-03] MEDS ORDERED: ceFAZolin 1 GM VIAL(*) 1 GM in NS 0.9% 50 ML* 50 ML IVPB SCH (05:00)
[2017-11-03] MEDS ORDERED: ceFAZolin 1 GM in Dextrose (*) 1 GM/50 ML BAG IVPB SCH (05:00)
[2017-11-03] MEDS: Heparin VIAL(*) 5000 UNITS/ML VIAL (FIVE THOUSAND) SUBCUT SCH ×3 (05:16→20:56)
--- NOTE | 2017-11-03 06:21 | PN ---
Hospitalist Progress Note Date of Service: 11/03/17 call for drainage to left facial wound. Cultured wound, also placed on iv ancef.
[2017-11-03] MEDS ORDERED: NS 0.9% 500 ML* 500 ML IV ONE (08:19)
[2017-11-03] MEDS: levETIRAcetam LIQ* 500 MG/5 ML UDC PO SCH ×2 (09:15→20:58)
[2017-11-03] MEDS: Aspirin 81 mg CHEW TAB* 81 MG TAB.CHEW PO SCH (09:15)
[2017-11-03] MEDS: Meclizine TAB* 12.5 MG PO SCH ×3 (09:15→21:03)
[2017-11-03] MEDS: PTO: Dorzolamide/Timolol OPTH (NF) 10 ML BOT RIGHT EYE SCH ×2 (09:55→20:57)
--- NOTE | 2017-11-03 10:29 | PN ---
Subjective Date of Service: 11/03/17 Interval History: Mr. Goodman had an uneventful night. He complains of dizziness, more of vertigo especially when he walks or moves too quickly. He has intermittent lightheadedness when he stands that lasts for a few seconds to minutes. He also complains of drainage from the left nostril. Discussed case with Dr. Lagunas. Patient was started on antibiotics for presumed sinus infection. He has not had any seizures. Last seizure was on 11/01/2017. He is off phenytoin now. He received the increase in levetiracetam dose of 1,250 mg twice daily yesterday. ROS: He denied headaches, visual disturbance, chest pain, shortness of breath or palpitations. Family History: Unchanged from Admission Social History: Unchanged from Admission Past Medical History: Unchanged from Admission Objective Active Medications: Acetaminophen (Tylenol Tab*) 650 mg PO Q4H PRN PRN Reason: FEVER/PAIN Aspirin (Aspirin 81 Mg Chew Tab*) 81 mg PO DAILY [facility] Last Admin: 11/03/17 09:15 Dose: 81 mg Dorzolamide/Timolol (Cosopt (Nf)) 1 drop RIGHT EYE BID [facility]; Protocol Last Admin: 11/03/17 09:55 Dose: 1 drop Heparin Sodium (Porcine) (Heparin Vial(*)) 5,000 units SUBCUT Q8HR [facility] Last Admin: 11/03/17 05:16 Dose: 5,000 units Cefazolin Sodium/Dextrose (Kefzol 1 Gm In Dextrose Duplex (*)) 1 gm in 50 mls @ 200 mls/hr IVPB Q8H [facility] Last Admin: 11/03/17 05:12 Dose: 200 mls/hr Sodium Chloride (Ns 0.9% 1000 Ml*) 1,000 mls @ 150 mls/hr IV PER RATE [facility] Latanoprost (Xalatan 0.005%*) 1 drop RIGHT EYE BEDTIME [facility] Last Admin: 11/02/17 22:30 Dose: 1 drop Levetiracetam (Keppra Liq*) 1,250 mg PO BID [facility] Last Admin: 11/03/17 09:15 Dose: 1,250 mg Meclizine HCl (Antivert Tab*) 12.5 mg PO Q8HR [facility] Last Admin: 11/03/17 09:15 Dose: 12.5 mg Ondansetron HCl (Zofran Inj*) 4 mg IV Q6H PRN PRN Reason: NAUSEA Vital Signs 11/02/17 11/02/17 11/02/17 11:33 15:36 19:39 Temperature 98.8 F 98.0 F 98.5 F Pulse Rate 92 71 91 Respiratory 16 20 20 Rate Blood Pressure 99/58 115/61 116/70 (mmHg) O2 Sat by Pulse 100 100 97 Oximetry 11/02/17 11/02/17 11/03/17 20:00 23:48 00:03 Temperature 98.8 F Pulse Rate 85 90 Respiratory 20 20 Rate Blood Pressure 81/56 86/59 (mmHg) O2 Sat by Pulse 100 Oximetry 11/03/17 11/03/17 11/03/17 00:11 03:35 08:29 Temperature 98.4 F 99.1 F Pulse Rate 79 86 81 Respiratory 18 15 Rate Blood Pressure 96/58 88/64 91/72 (mmHg) O2 Sat by Pulse 99 100 Oximetry Oxygen Devices in Use Now: None Neurology Exam: General: Well nourished man in no acute distress. He is resting in bed comfortable. HEENT: dysmorphic facial features on the left due to cancer resection. Sclerotic muscle on the left neck due to radiation. Neck: Supple Chest: Clear to auscultation bilaterally Cardiovascular: Regular rate and rhythm without murmurs, rubs, gallops Extremities: No clubbing, cyanosis, or edema Neurological Findings: Awake, Alert, Oriented to self, place, and time. He has mild global developmental delay and dysarthria. Cranial Nerve: PEERL, EOM intact. He has trouble tracking examiner due to lack of attention and is easily distracted. Motor: s/s throughout, proximal and distal extremities x4 tone/bulk normal Sensation: intact to LT/PP bilaterally upper and lower extremities Deep Tendon Reflex: 2+ symmetric in the upper/lower extremities, Babinski - down going Finger to nose, rapid alternating movements intact without tremor, no dysdiadochokinesia Gait: wide based with mild swaying but he was able to stabilize himself and did not require assist to walk. Romberg sign is not present. Result Diagrams: 11/02/17 05:21 11/02/17 05:22 Additional Lab and Data: WBC: 5.4 Microbiology and Other Data: Microbiology 11/02/17 00:30 Urine Culture - Final Urine No Growth (<1,000 CFU/mL) 11/03/17 05:03 Gram Stain - Final Nare Left 11/01/17 21:07 Aerobic Blood Culture - Preliminary Blood Venous No Growth Day 1 Anaerobic Blood Culture - Preliminary No Growth Day 1 11/01/17 21:07 Aerobic Blood Culture - Preliminary Blood Venous No Growth Day 1 Anaerobic Blood Culture - Preliminary No Growth Day 1 Diagnostic Imaging: CT Maxillofacial completed on 11/01 - left mastoid effusion with moderate sinus mucosal inflammatory disease. CT head with contrast completed on 11/02- no contrast enhancing intracranial lesion to suspect metastatic disease. Assessment/Plan Assessment: Mr. Goodman is a 62-year-old man with history of congenital heart disease, developmental delay since , post-traumatic epilepsy since 2003, and squamous cell carcinoma of the sinus s/p resection and radiation therapy completed in August 2017 who presented to [facility] on 11/01/2017 with breakthrough seizure. 1. Breakthrough seizure most probably related to underlying sinus infection- I discontinued phenytoin yesterday since infection may have been the provoking factor for his seizure. I did increase the levetiracetam dose to 1,250 mg twice daily although this can be eventually decreased as an outpatient once his infection clears. I ordered a levetiracetam level. If significantly elevated ( > 50), then I will reduce the dose back to 1,000 mg twice daily. He has no evidence of metastatic disease to the brain given the negative contrasted CT head. 2. Probable sinus disease s/p surgery and radiation- ENT will be consulted by Dr. Lagunas. Pt was started on Cefazolin. 3. Hx of developmental delay- no acute change. He is pleasant and cooperative. I spent a total of 25 minutes reviewing the medical records and discussing the findings and treatment plan with patient's sister Elissa, the patient, and Dr. Lagunas. Follow-up with Neurology in 4-6 weeks. Please schedule an appointment with Dr. Tristan Cardoza.
[2017-11-03] MEDS: NS 0.9% 1000 ML* 1,000 ML IV SCH ×2 (11:43→21:07)
[2017-11-03] MEDS ORDERED: Piperacillin/Tazobac ADVAN(*) 3.375 GM in NS 0.9% 100 ML* 100 ML IVPB ONE (13:00)
[2017-11-03] MEDS ORDERED: Amoxicillin/Clavulanate TAB* 875 MG PO SCH (13:00)
[2017-11-03] MEDS ORDERED: Zosyn per Pharmacy* NOTE FOLLOW UP SCH (13:00)
[2017-11-03] MEDS: MUPIROCIN INTRANASAL SCH ×2 (13:22→22:06)
--- NOTE | 2017-11-03 16:46 | CONS ---
CONSULTATION NOTE: DATE OF CONSULT: 11/03/17 HISTORY: Dr. Roy consulting because of seizures and possible facial cellulitis. The patient is known to me, diagnosed left maxillary squamous cell carcinoma that was invading into his hard palate and at the time into his orbit and potentially intracranially. I sent him up to [facility] where they did a radical maxillectomy and wedge resection of the hard palate and did a free-flap for reconstruction. He had postsurgical radiation therapy. He presented apparently with some seizures and the question is whether infection could be leading to this. Apparently, his Dilantin levels have been normal. PHYSICAL EXAM: Intraorally, the flap looks great. There is no evidence of cellulitis. He does have skin breakdown in the left nasal vestibule onto the upper lip and into the nasal cavity. He has some erythema of the facial skin intranasally, though it is hard to tell exactly what is going on because of the hard palate, but I am concerned about cellulitis in that location. RECOMMENDATION: I would treat with antibiotics. Dr. Figueredo and I talked and thought that Augmentin would be a good choice orally or Zosyn IV and I also recommend placing mupirocin ointment 2 times a day within the nasal cavity. [id number]/[facility] [place] #: [id number] [facility]
--- NOTE | 2017-11-03 17:16 | PN ---
Subjective Date of Service: 11/03/17 Interval History: HOSPITALIST PROGRESS NOTE Patient seen and examined at bedside. Care reviewed and d/w Unique Matias RN. He c/o dizziness and nose pain. Developed more left face erythema overnight and left nostril drainage. Family History: Unchanged from Admission Social History: Unchanged from Admission Past Medical History: Unchanged from Admission Objective Active Medications: Acetaminophen (Tylenol Tab*) 650 mg PO Q4H PRN PRN Reason: FEVER/PAIN Aspirin (Aspirin 81 Mg Chew Tab*) 81 mg PO DAILY [facility] Last Admin: 11/03/17 09:15 Dose: 81 mg Dorzolamide/Timolol (Cosopt (Nf)) 1 drop RIGHT EYE BID [facility]; Protocol Last Admin: 11/03/17 09:55 Dose: 1 drop Heparin Sodium (Porcine) (Heparin Vial(*)) 5,000 units SUBCUT Q8HR [facility] Last Admin: 11/03/17 13:17 Dose: 5,000 units Sodium Chloride (Ns 0.9% 1000 Ml*) 1,000 mls @ 150 mls/hr IV PER RATE [facility] Last Admin: 11/03/17 11:43 Dose: 150 mls/hr Piperacillin Sod/Tazobactam (Sod 3.375 gm/ Sodium Chloride) 100 mls @ 25 mls/ hr IVPB Q8H [facility] Latanoprost (Xalatan 0.005%*) 1 drop RIGHT EYE BEDTIME [facility] Last Admin: 11/02/17 22:30 Dose: 1 drop Levetiracetam (Keppra Liq*) 1,250 mg PO BID [facility] Last Admin: 11/03/17 09:15 Dose: 1,250 mg Meclizine HCl (Antivert Tab*) 12.5 mg PO Q8HR [facility] Last Admin: 11/03/17 13:19 Dose: 12.5 mg Mupirocin (Bactroban Nasal Oint (Nf)) 1 applic INTRANASAL BID [facility]; Protocol Last Admin: 11/03/17 13:22 Dose: Not Given Ondansetron HCl (Zofran Inj*) 4 mg IV Q6H PRN PRN Reason: NAUSEA Pharmacy Consult (Zosyn Per Pharmacy*) 1 note FOLLOW UP .ZOSYN PER PHARMACY [facility] Vital Signs - 8 hr 11/03/17 11/03/17 11:48 15:21 Temperature 97.9 F 98.5 F Pulse Rate 75 90 Respiratory 18 20 Rate Blood Pressure 108/55 100/70 (mmHg) O2 Sat by Pulse 100 100 Oximetry Oxygen Devices in Use Now: None Appearance: Pleasant gentleman sitting up in bed in NAD. Eyes: No Scleral Icterus Ears/Nose/Mouth/Throat: Mucous Membranes Moist, - - Left facial edema and erythema, with abrasion around the left nare, with yellow dried secretions Neck: Trachea Midline Respiratory: Symmetrical Chest Expansion and Respiratory Effort, Clear to Auscultation Cardiovascular: RRR - Normal S1 and S2 Neurological: Alert and Oriented x 3, NL Muscle Strength and Tone Result Diagrams: 11/02/17 05:21 11/02/17 05:22 Diagnostic Imaging: CT Maxillofacial completed on 11/01 - left mastoid effusion with moderate sinus mucosal inflammatory disease. CT head with contrast completed on 11/02- no contrast enhancing intracranial lesion to suspect metastatic disease. Assess/Plan/Problems-Billing Assessment: Mr. 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 - Patient Problems (1) Seizure Comment: - H/o seizure disorder, compliant with Phenytoin (sister gives him the medication). - Neurology input appreciated - changed from Phenytoin to Keppra. - CT brain with contrast was negative for metastatic disease. - PT consult appreciated - gait is steadier today. 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 (3) Facial cellulitis Comment: - Suspect patient has facial cellulitis and this lowered his seizure threshold, causing this episode. - ENT input appreciated - recommended Zosyn IV and Mupirocin intranasal (for 2 weeks). (4) DVT prophylaxis Comment: - SQ heparin. (5) Full code status Status and Disposition: Inpatient.
[2017-11-03] MEDS: ZOSYN 3.375 GM Q8H per EXTENDED INFUSION IVPB SCH ×2 (17:31)
[2017-11-03] MEDS: PTO: Latanoprost 0.005%* 2.5 ml BTL RIGHT EYE SCH (20:55)
[2017-11-04] MEDS: ZOSYN 3.375 GM Q8H per EXTENDED INFUSION IVPB SCH ×6 (01:19→17:07)
[2017-11-04] MEDS: NS 0.9% 1000 ML* 1,000 ML IV SCH ×2 (04:10→11:54)
[2017-11-04 04:49] LABS: ABS Basophils 0 10^3/ul (0-0.2); ABS Eosinophils 0.1 10^3/ul (0-0.6); ABS Lymphocytes 0.4 10^3/ul (1.0-4.8); ABS Monocytes 0.5 10^3/ul (0-0.8); ABS Neutrophils 2.1 10^3/ul (1.5-7.7); ABS Nucleated RBC 0 10^3/ul; Eosinophil % 3.2 % (0-6); Hematocrit 32 % (42-52); Hemoglobin 10.8 g/dl (14.0-18.0); Lymphocyte % 11.9 % (25-47); Mean Corpuscular HGB Conc 34 g/dl (31-36); Mean Corpuscular Hemoglobin 30 pg (27-31); Mean Corpuscular Volume 87 fL (80-94); Mean Platelet Volume 6.9 um3 (7.4-10.4); Nucleated Red Blood Cells % 0; Platelet Count 200 10^3/ul (150-450); Red Blood Count 3.66 10^6/ul (4.00-5.40); Red Cell Distribution Width 18 % (10.5-15); White Blood Count 3.1 10^3/ul (3.5-10.8)
[2017-11-04 05:06] LABS: EGFR Non-African American 95.5 (>60)
[2017-11-04] MEDS: Meclizine TAB* 12.5 MG PO SCH ×3 (06:17→21:47)
[2017-11-04] MEDS: Heparin VIAL(*) 5000 UNITS/ML VIAL (FIVE THOUSAND) SUBCUT SCH ×3 (06:17→21:47)
[2017-11-04] MEDS: MUPIROCIN INTRANASAL SCH ×2 (09:18→19:40)
[2017-11-04] MEDS: levETIRAcetam LIQ* 500 MG/5 ML UDC PO SCH ×2 (09:28→19:39)
[2017-11-04] MEDS: Aspirin 81 mg CHEW TAB* 81 MG TAB.CHEW PO SCH (09:30)
[2017-11-04] MEDS: PTO: Dorzolamide/Timolol OPTH (NF) 10 ML BOT RIGHT EYE SCH ×2 (09:33→19:35)
--- NOTE | 2017-11-04 10:06 | PN ---
Subjective Date of Service: 11/04/17 Interval History: Mr. Goodman is resting in bed comfortable. Elissa is at bedside. I have informed him about the undetectable levetiracetam level that was obtained on . Elissa called her sister who usually administers the levetiracetam. Apparently the patient was told to take his own medication the last few weeks and there may have been some confusion and the patient was most likely not taking the levetiracetam. He is shocked and not sure how that may have been missed. The patient has not had a seizure since admission on 11/01/2017. The dizziness has improved but he still continues to have intermittent lightheadedness when ambulating lasting for a few seconds. ROS: Denied CP, SOB, or palpitations. He denied any headaches or visual disturbance. Family History: Unchanged from Admission Social History: Unchanged from Admission Past Medical History: Unchanged from Admission Objective Active Medications: Acetaminophen (Tylenol Tab*) 650 mg PO Q4H PRN PRN Reason: FEVER/PAIN Last Admin: 11/04/17 09:31 Dose: 650 mg Aspirin (Aspirin 81 Mg Chew Tab*) 81 mg PO DAILY [facility] Last Admin: 11/04/17 09:30 Dose: 81 mg Dorzolamide/Timolol (Cosopt (Nf)) 1 drop RIGHT EYE BID [facility]; Protocol Last Admin: 11/04/17 09:33 Dose: 1 drop Heparin Sodium (Porcine) (Heparin Vial(*)) 5,000 units SUBCUT Q8HR [facility] Last Admin: 11/04/17 06:17 Dose: 5,000 units Sodium Chloride (Ns 0.9% 1000 Ml*) 1,000 mls @ 150 mls/hr IV PER RATE [facility] Last Admin: 11/04/17 04:10 Dose: 150 mls/hr Piperacillin Sod/Tazobactam (Sod 3.375 gm/ Sodium Chloride) 100 mls @ 25 mls/ hr IVPB Q8H [facility] Last Admin: 11/04/17 09:34 Dose: 25 mls/hr Latanoprost (Xalatan 0.005%*) 1 drop RIGHT EYE BEDTIME [facility] Last Admin: 11/03/17 20:55 Dose: 1 drop Levetiracetam (Keppra Liq*) 1,000 mg PO BID [facility] Meclizine HCl (Antivert Tab*) 12.5 mg PO Q8HR [facility] Last Admin: 11/04/17 06:17 Dose: 12.5 mg Mupirocin (Bactroban Nasal Oint (Nf)) 1 applic INTRANASAL BID [facility]; Protocol Last Admin: 11/04/17 09:18 Dose: Not Given Ondansetron HCl (Zofran Inj*) 4 mg IV Q6H PRN PRN Reason: NAUSEA Pharmacy Consult (Zosyn Per Pharmacy*) 1 note FOLLOW UP .ZOSYN PER PHARMACY [facility] Vital Signs 11/03/17 11/03/17 11/03/17 11:48 15:21 19:18 Temperature 97.9 F 98.5 F 99.7 F Pulse Rate 75 90 87 Respiratory 18 20 24 Rate Blood Pressure 108/55 100/70 114/61 (mmHg) O2 Sat by Pulse 100 100 100 Oximetry 11/03/17 11/03/17 11/04/17 20:00 23:15 03:15 Temperature 98.6 F 98.7 F Pulse Rate 73 74 Respiratory 20 18 16 Rate Blood Pressure 104/61 117/70 (mmHg) O2 Sat by Pulse 99 100 Oximetry 11/04/17 08:07 Temperature 98.2 F Pulse Rate 75 Respiratory 16 Rate Blood Pressure 111/66 (mmHg) O2 Sat by Pulse 100 Oximetry Oxygen Devices in Use Now: None Neurology Exam: General: Frail appearing man in no acute distress. HEENT: Dysmorphic features involving the left face. No significant nasal drainage. Neck: Supple Chest: Clear to auscultation bilaterally Cardiovascular: Regular rate and rhythm without murmurs, rubs, gallops Extremities: No clubbing, cyanosis, or edema Neurological Findings: Awake and alert oriented to self place and time. Mild dysarthria. Cranial Nerve: PEERL, EOM intact, no significant facial asymmetry. Motor: normal tone. 5/5 throughout upper and lower extremities. Sensation: intact to LT/PP bilaterally upper and lower extremities Deep Tendon Reflex: 1+ throughout absent at the ankles. Finger to nose, rapid alternating movements intact without tremor Gait:wide based no ataxia. Required minimal assist. Result Diagrams: 11/04/17 04:40 11/04/17 04:40 Additional Lab and Data: WBC: 3.1 Levetiracetam: < 2.0 on 11/01/2017 Microbiology and Other Data: Microbiology 11/02/17 00:30 Urine Culture - Final Urine No Growth (<1,000 CFU/mL) 11/03/17 05:03 Gram Stain - Final Nare Left 11/01/17 21:07 Aerobic Blood Culture - Preliminary Blood Venous No Growth Day 1 Anaerobic Blood Culture - Preliminary No Growth Day 1 11/01/17 21:07 Aerobic Blood Culture - Preliminary Blood Venous No Growth Day 1 Anaerobic Blood Culture - Preliminary No Growth Day 1 Diagnostic Imaging: CT Maxillofacial completed on 11/01 - left mastoid effusion with moderate sinus mucosal inflammatory disease. CT head with contrast completed on 11/02- no contrast enhancing intracranial lesion to suspect metastatic disease. Assessment/Plan Assessment and Recommendation: Mr. 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 1. Breakthrough seizure in the setting of undetectable levetiracetam level. Most probably related to non-compliance with superimposed underlying sinus infection- I discontinued phenytoin and reduced levetiracetam back to his home dose since he probably was not taking it. I educated the patient and sister Elissa regarding the importance in medication compliance. Elissa stated that Mr. Goodman was informing family members that he was taking the levetiracetam but they will now make sure he is given the medication rather than counting on him to take it. Although there is no need to repeat the levetiracetam level, I did send a level to make sure he is not toxic which would explain some of his resolving lightheadedness. The level will also help coordinate the dose of medication needed when he follows up as outpatient. No need to wait for the level to come back as it will be followed up as outpatient. He has no evidence of metastatic disease to the brain given the negative contrasted CT head. 2. Probable sinus disease s/p surgery and radiation- Pending ENT consult. He is on antibiotics. 3. Hx of developmental delay- no acute change. He is pleasant and cooperative. I spent a total of 25 minutes reviewing the medical records and discussing the findings and treatment plan with patient's sister Elissa, the patient, and Dr. Lagunas. Follow-up with Neurology in 4-6 weeks. I will sign off but feel free contact me for any questions or concerns.
--- NOTE | 2017-11-04 14:49 | PN ---
Subjective Date of Service: 11/04/17 Interval History: HOSPITALIST PROGRESS NOTE Patient seen and examined at bedside. Care reviewed and d/w Gia Pope RN. He feels a little dizzy today, but less than yesterday. Still has nasal pain, but drainage has decreased. Family History: Unchanged from Admission Social History: Unchanged from Admission Past Medical History: Unchanged from Admission Objective Active Medications: Acetaminophen (Tylenol Tab*) 650 mg PO Q4H PRN PRN Reason: FEVER/PAIN Last Admin: 11/04/17 09:31 Dose: 650 mg Aspirin (Aspirin 81 Mg Chew Tab*) 81 mg PO DAILY [facility] Last Admin: 11/04/17 09:30 Dose: 81 mg Dorzolamide/Timolol (Cosopt (Nf)) 1 drop RIGHT EYE BID [facility]; Protocol Last Admin: 11/04/17 09:33 Dose: 1 drop Heparin Sodium (Porcine) (Heparin Vial(*)) 5,000 units SUBCUT Q8HR [facility] Last Admin: 11/04/17 13:14 Dose: 5,000 units Piperacillin Sod/Tazobactam (Sod 3.375 gm/ Sodium Chloride) 100 mls @ 25 mls/ hr IVPB Q8H [facility] Last Admin: 11/04/17 09:34 Dose: 25 mls/hr Latanoprost (Xalatan 0.005%*) 1 drop RIGHT EYE BEDTIME [facility] Last Admin: 11/03/17 20:55 Dose: 1 drop Levetiracetam (Keppra Liq*) 1,000 mg PO BID [facility] Meclizine HCl (Antivert Tab*) 12.5 mg PO Q8HR [facility] Last Admin: 11/04/17 13:14 Dose: 12.5 mg Mupirocin (Bactroban Nasal Oint (Nf)) 1 applic INTRANASAL BID [facility]; Protocol Last Admin: 11/04/17 09:18 Dose: Not Given Ondansetron HCl (Zofran Inj*) 4 mg IV Q6H PRN PRN Reason: NAUSEA Pharmacy Consult (Zosyn Per Pharmacy*) 1 note FOLLOW UP .ZOSYN PER PHARMACY [facility] Vital Signs - 8 hr 11/04/17 11/04/17 11/04/17 08:00 08:07 11:37 Temperature 98.2 F 98.3 F Pulse Rate 75 80 Respiratory 16 16 16 Rate Blood Pressure 111/66 104/66 (mmHg) O2 Sat by Pulse 100 100 Oximetry Oxygen Devices in Use Now: None Appearance: Pleasant gentleman sitting up in bed in NAD. Eyes: No Scleral Icterus Ears/Nose/Mouth/Throat: Mucous Membranes Moist, - - Left demarco abrasion is healing , drainage is minimal, facial erythema is improved Neck: Trachea Midline - with old trach scar Respiratory: Symmetrical Chest Expansion and Respiratory Effort, Clear to Auscultation Cardiovascular: RRR - Normal S1 and S2 Result Diagrams: 11/04/17 04:40 11/04/17 04:40 Diagnostic Imaging: CT Maxillofacial completed on 11/01 - left mastoid effusion with moderate sinus mucosal inflammatory disease. CT head with contrast completed on 11/02- no contrast enhancing intracranial lesion to suspect metastatic disease. Assess/Plan/Problems-Billing Assessment and Recommendation: Mr. 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 1. Breakthrough seizure in the setting of undetectable levetiracetam level. Most probably related to non-compliance with superimposed underlying sinus infection- I discontinued phenytoin and reduced levetiracetam back to his home dose since he probably was not taking it. I educated the patient and sister Elissa regarding the importance in medication compliance. Elissa stated that Mr. Goodman was informing family members that he was taking the levetiracetam but they will now make sure he is given the medication rather than counting on him to take it. Although there is no need to repeat the levetiracetam level, I did send a level to make sure he is not toxic which would explain some of his resolving lightheadedness. The level will also help coordinate the dose of medication needed when he follows up as outpatient. No need to wait for the level to come back as it will be followed up as outpatient. He has no evidence of metastatic disease to the brain given the negative contrasted CT head. 2. Probable sinus disease s/p surgery and radiation- Pending ENT consult. He is on antibiotics. 3. Hx of developmental delay- no acute change. He is pleasant and cooperative. I spent a total of 25 minutes reviewing the medical records and discussing the findings and treatment plan with patient's sister Elissa, the patient, and Dr. Lagunas. Follow-up with Neurology in 4-6 weeks. I will sign off but feel free contact me for any questions or concerns. - Patient Problems (1) Seizure Comment: - Initially thought to be compliant with medication, but recently he was taking it himself. Keppra level was <2. - Neurology input appreciated - increased Keppra to 1250mg BID. - CT brain with contrast was negative for metastatic disease. - PT consult appreciated - gait is steadier today. 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 - Records from [facility] show patient had left maxillary sinus carcinoma with extension to the infratemporal fossa and underwent resection of left maxillary sinus and skull base tumor, with left modified radical neck dissection and thigh free flap reconstruction. (3) Facial cellulitis Comment: - Suspect patient has facial cellulitis and this lowered his seizure threshold, causing this episode. - ENT input appreciated - recommended Zosyn IV and Mupirocin intranasal (for 2 weeks). (4) DVT prophylaxis Comment: - SQ heparin. (5) Full code status Status and Disposition: Inpatient.
[2017-11-04] MEDS: PTO: Latanoprost 0.005%* 2.5 ml BTL RIGHT EYE SCH (19:34)
[2017-11-05] MEDS: ZOSYN 3.375 GM Q8H per EXTENDED INFUSION IVPB SCH ×8 (01:19→23:33)
[2017-11-05] MEDS: Heparin VIAL(*) 5000 UNITS/ML VIAL (FIVE THOUSAND) SUBCUT SCH ×3 (06:00→21:22)
[2017-11-05] MEDS: Meclizine TAB* 12.5 MG PO SCH ×3 (06:01→21:22)
[2017-11-05] MEDS: Aspirin 81 mg CHEW TAB* 81 MG TAB.CHEW PO SCH (09:17)
[2017-11-05] MEDS: levETIRAcetam LIQ* 500 MG/5 ML UDC PO SCH ×2 (09:17→21:22)
[2017-11-05] MEDS: PTO: Dorzolamide/Timolol OPTH (NF) 10 ML BOT RIGHT EYE SCH ×2 (09:27→21:22)
[2017-11-05] MEDS: MUPIROCIN INTRANASAL SCH ×2 (09:28→21:28)
--- NOTE | 2017-11-05 13:26 | PN ---
Subjective Date of Service: 11/05/17 Interval History: HOSPITALIST PROGRESS NOTE Patient seen and examined at bedside. Care reviewed and d/w Brant Majano RN. He feels a little better today. Dizziness is less intense, but nasal pain continues to bother him. Drainage is minimal now. Tolerating diet well, denies N /V/D. Family History: Unchanged from Admission Social History: Unchanged from Admission Past Medical History: Unchanged from Admission Objective Active Medications: Acetaminophen (Tylenol Tab*) 650 mg PO Q4H PRN PRN Reason: FEVER/PAIN Last Admin: 11/04/17 09:31 Dose: 650 mg Aspirin (Aspirin 81 Mg Chew Tab*) 81 mg PO DAILY [facility] Last Admin: 11/05/17 09:17 Dose: 81 mg Dorzolamide/Timolol (Cosopt (Nf)) 1 drop RIGHT EYE BID [facility]; Protocol Last Admin: 11/05/17 09:27 Dose: 1 drop Heparin Sodium (Porcine) (Heparin Vial(*)) 5,000 units SUBCUT Q8HR [facility] Last Admin: 11/05/17 06:00 Dose: 5,000 units Piperacillin Sod/Tazobactam (Sod 3.375 gm/ Sodium Chloride) 100 mls @ 25 mls/ hr IVPB Q8H [facility] Last Admin: 11/05/17 09:18 Dose: 25 mls/hr Latanoprost (Xalatan 0.005%*) 1 drop RIGHT EYE BEDTIME [facility] Last Admin: 11/04/17 19:34 Dose: 1 drop Levetiracetam (Keppra Liq*) 1,000 mg PO BID [facility] Last Admin: 11/05/17 09:17 Dose: 1,000 mg Meclizine HCl (Antivert Tab*) 12.5 mg PO Q8HR [facility] Last Admin: 11/05/17 06:01 Dose: 12.5 mg Mupirocin (Bactroban Nasal Oint (Nf)) 1 applic INTRANASAL BID [facility]; Protocol Last Admin: 11/05/17 09:28 Dose: Not Given Ondansetron HCl (Zofran Inj*) 4 mg IV Q6H PRN PRN Reason: NAUSEA Pharmacy Consult (Zosyn Per Pharmacy*) 1 note FOLLOW UP .ZOSYN PER PHARMACY [facility] Vital Signs - 8 hr 11/05/17 11/05/17 07:48 07:49 Temperature 97.9 F Pulse Rate 75 Respiratory 16 16 Rate Blood Pressure 118/67 (mmHg) O2 Sat by Pulse 100 Oximetry Oxygen Devices in Use Now: None Appearance: Pleasant gentleman sitting up in bed in NAD. Eyes: No Scleral Icterus Ears/Nose/Mouth/Throat: Mucous Membranes Moist, - - Facial edema and erythema are less intense Neck: Trachea Midline - with old trach scar Respiratory: Symmetrical Chest Expansion and Respiratory Effort, Clear to Auscultation Cardiovascular: RRR - Normal S1 and S2 Abdominal: NL Sounds; No Tenderness; No Distention Neurological: Alert and Oriented x 3, NL Muscle Strength and Tone Result Diagrams: 11/04/17 04:40 11/04/17 04:40 Diagnostic Imaging: CT Maxillofacial completed on 11/01 - left mastoid effusion with moderate sinus mucosal inflammatory disease. CT head with contrast completed on 11/02- no contrast enhancing intracranial lesion to suspect metastatic disease. Assess/Plan/Problems-Billing Assessment/Plan: Mr. 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 - Patient Problems (1) Seizure Comment: - Initially thought to be compliant with medication, but recently he was taking it himself and Keppra level was <2. - Neurology input appreciated - increased Keppra to 1250mg BID. - CT brain with contrast was negative for metastatic disease. - PT consult appreciated - gait is steadier today. 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 - Records from [facility] show patient had left maxillary sinus carcinoma with extension to the infratemporal fossa and underwent resection of left maxillary sinus and skull base tumor, with left modified radical neck dissection and thigh free flap reconstruction. (3) Facial cellulitis Comment: - Suspect patient has facial cellulitis and this lowered his seizure threshold, causing this episode. - ENT input appreciated - recommended Zosyn IV and Mupirocin intranasal (for 2 weeks). (4) DVT prophylaxis Comment: - SQ heparin. (5) Full code status Status and Disposition: Inpatient. Anticipate d/c in AM.
[2017-11-05] MEDS: PTO: Latanoprost 0.005%* 2.5 ml BTL RIGHT EYE SCH (21:22)
[2017-11-05] MEDS: Mupirocin 2% OINT* TUBE TOPICAL SCH (23:33)
[2017-11-06] MEDS: Heparin VIAL(*) 5000 UNITS/ML VIAL (FIVE THOUSAND) SUBCUT SCH (05:52)
[2017-11-06] MEDS: Meclizine TAB* 12.5 MG PO SCH (05:52)
[2017-11-06 07:44] VITALS: BP 104/60
[2017-11-06] MEDS: levETIRAcetam LIQ* 500 MG/5 ML UDC PO SCH (07:53)
[2017-11-06] MEDS: Aspirin 81 mg CHEW TAB* 81 MG TAB.CHEW PO SCH (07:53)
[2017-11-06] MEDS: PTO: Dorzolamide/Timolol OPTH (NF) 10 ML BOT RIGHT EYE SCH (07:53)
[2017-11-06] MEDS: Mupirocin 2% OINT* TUBE TOPICAL SCH (07:53)
[2017-11-06] MEDS: ZOSYN 3.375 GM Q8H per EXTENDED INFUSION IVPB SCH ×2 (07:59)
--- NOTE | 2017-11-07 03:50 | DS ---
CC: Dr. Manriquez; Dr. Tristan Cardoza; Dr. Armstrong; Dr. Mcdermott DISCHARGE SUMMARY: DATE OF ADMISSION: 11/02/17 DATE OF DISCHARGE: 11/06/17 PRIMARY CARE PROVIDER: Dr. Manriquez. NEUROLOGIST: Dr. Tristan Cardoza. CONSULTING NEUROLOGIST: Dr. Armstrong. CONSULTING ENT: Dr. Mcdermott. DISCHARGE DIAGNOSES: 1. Breakthrough seizure, secondary to medication noncompliance and infection. 2. Left facial cellulitis secondary to extensive facial surgery, reconstruction and radiation. SECONDARY DIAGNOSES: 1. Congenital heart disease. 2. Developmental delay. 3. Posttraumatic epilepsy since 2003. 4. 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 5. Status post pacemaker. MEDICATION LIST: 1. Xalatan 0.005% 1 drop to the right eye at bedtime. 2. Cosopt 1 drop to the right eye b.i.d. 3. Aspirin 81 mg p.o. daily. 4. Ondansetron ODT 4 mg p.o. q.8 hours p.r.n. nausea and vomiting. 5. Keppra 1250 mg p.o. b.i.d. 6. Augmentin 875 mg p.o. b.i.d. for 2 weeks. 7. Mupirocin 2% topical on the left nares b.i.d. for 2 weeks. 8. Meclizine 12.5 mg p.o. q.8 hours p.r.n. dizziness. HOSPITAL COURSE: Mr. Goodman is a 62-year-old male with a past medical history as stated above that p resented to the emergency room after having a breakthrough seizure at home. Initially, the impressio n was the patient was compliant with his medication. His sister was the one giving the medication to him, but later on, it was clarified that the patient was taking the medications by himself and marshallriley dino missed some doses as his initial Keppra level was less than 2. He was loaded with fosphenytoin a nd obtained good levels. A chest x-ray showed no active disease. His urinalysis was negative for infection. CT of the brain w ithout contrast showed subfrontal encephalomalacia with mild diffuse cortical parenchymal loss, left sinus mass, but no acute cranial findings. A maxillofacial CT showed surgical resection of the left f chad with an ill-defined soft tissue in the surgical cavity, which may reflect postsurgical change benoit barby residual/recurrent neoplasm. No acute osseous injury to the face, left mastoid effusion, moderat e sinus mucosal inflammatory disease, resolved air fluid level. The patient was seen in consultation by Neurology (Dr. Armstrong) and he was concerned for possible metas tasis. The patient has a pacemaker, so he could not have an MRI of the brain. The patient had an EE G that showed findings suggestive of a mild nonspecific global encephalopathy with focal slowing in t he left temporal lobe suggesting a focal structural abnormality and neuronal dysfunction in the regio n. There were no electrographic seizures seen in the recording. Dr. Armstrong recommended a CT of the br ain with contrast that showed no acute intracranial pathology, stable bifrontal encephalomalacia, pos tsurgical changes to the left maxilla, no abnormal enhancement. At that point, the patient was complaining of left facial pain, was noted to have an abrasion to his left nares and was diagnosed with facial cellulitis. IMPRESSION: The impression was that the patient's seizure was likely secondary to noncompliance with Keppra and also brought on by infectious insult secondary to facial cellulitis. The patient was see n in consultation by ENT (Dr. Mcdermott) and he felt that intraorally, the patient's flap looked gre at, but he had some erythema of the facial skin intranasally and also skin breakdown in the left nasa l vestibule onto the upper lip and into the nasal cavity. His recommendation was for antibiotic and mupirocin ointment intranasally. The patient had progressive improvement of his pain, facial edema and erythema, but the skin breakdow n is still present. The patient is medically stable to be discharged home at this time to follow up with Dr. Cardoza as an outpatient. As per Dr. Armstrong's recommendation, his Keppra dose can probably be r educed back to his usual dose of 1000 mg b.i.d. after the infection has resolved. He will also need followup with his primary care provider as if the infection does not heal properly, he will probably need further ENT evaluation. DIET: Regular diet. ACTIVITY: As tolerated. DISPOSITION: To home. STATUS WHILE IN HOSPITALIZATION: Inpatient. Please keep in mind this is a summarized version of this patient's hospital stay. If you need more in formation, please feel free to call me at [phone] or please obtain the full medical records. TIME SPENT: Approximately 45 minutes were spent to complete this discharge. The patient's sister wa s educated about his diagnosis and posthospital care. [id number]/[facility] #: [id number]
== END 2017-11-06 10:06 | disposition home or self-care (01) | DRG 100 ==
LOC: ED 18:59 → MEDTELE 22:21 → OBSVTOIN 11-02 13:04
PROVIDERS: ADMIT Nurse Practitioner Family; ATTEND Internal Medicine
DX: G40.409 Other generalized epilepsy and epileptic syndromes, not intractable, without status epilepticus (principal); G93.40 Encephalopathy, unspecified; G45.8 Other transient cerebral ischemic attacks and related syndromes; I44.2 Atrioventricular block, complete; T66.XXXA Radiation sickness, unspecified, initial encounter; C31.0 Malignant neoplasm of maxillary sinus; J34.0 Abscess, furuncle and carbuncle of nose; K13.0 Diseases of lips; B95.61 Methicillin susceptible Staphylococcus aureus infection as the cause of diseases classified elsewhere; Y84.2 Radiological procedure and radiotherapy as the cause of abnormal reaction of the patient, or of later complication, without mention of misadventure at the time of the procedure; R62.50 Unspecified lack of expected normal physiological development in childhood; Y92.9 Unspecified place or not applicable; Q24.9 Congenital malformation of heart, unspecified; Z95.0 Presence of cardiac pacemaker; Z91.14 Patient's other noncompliance with medication regimen; Z79.82 Long term (current) use of aspirin; Z79.891 Long term (current) use of opiate analgesic; Z79.899 Other long term (current) drug therapy; Z80.3 Family history of malignant neoplasm of breast; Z80.9 Family history of malignant neoplasm, unspecified; Z87.891 Personal history of nicotine dependence
CPT/HCPCS: 36415; 70450; 70460; 70486; 71045; 80048; 80053; 80177; 80185; 81003; 81015; 82550; 82553; 83605; 83735; 83880; 84443; 84484; 85025; 85610; 85730; 86140; 87040; 87070; 87077; 87086; 87186; 95819; 99283; A9270-GY; G8978-GP-CI; G8978-GP-CJ; G8979-GP-CH; G8979-GP-CI; J0690; J1644; J2060; J2543; Q2009; Q9967

== ENCOUNTER 2019-03-07 20:32 | Inpatient (IN) | payer MEDICARE, MEDICAID ==
[2019-03-07] MEDS ORDERED: NS 0.9% 1000 ML** 2,000 ML IV ONE (21:11)
[2019-03-07] MEDS ORDERED: Ondansetron INJ* 2 MG/ML VIAL IV ONE (21:13)
--- NOTE | 2019-03-07 21:20 | ED ---
GI/ HPI - HPI Summary HPI Summary: Pt is a 64 y/o M presenting to the ED with his sister with a chief complaint of GI issues. LEVEL 5 CAVEAT d/t pts intellectual disability, pts sister is giving hx. He has had abd pain with N/V/D that has worsened over time, and tonight he was incredibly weak and fatigued. Denies blood in stool or vomit that pts sister is aware of. - History of Current Complaint Chief Complaint: EDNauseaVomitDiarrh Time Seen by Provider: 03/07/19 21:06 Stated Complaint: VOMITING/WEAKNESS PER SISTER Hx Obtained From: Family/Organizational Effectiveness Consultant - sister Onset/Duration: Started Days Ago, Still Present Timing: Constant, Lasting Days Severity: Moderate Current Severity: Moderate Pain Intensity: 5 Location of Pain: Diffuse Associated Signs and Symptoms: Positive: Nausea, Vomiting, Diarrhea. Negative: Hematemesis, Blood w/Stool - Additional Pertinent History Primary Care Physician: KOBY - Allergy/Home Medications Allergies/Adverse Reactions: Allergies Allergy/AdvReac Type Severity Reaction Status Date / Time No Known Allergies Allergy Verified 03/07/19 20:41 Home Medications: Home Medications Aspirin EC TAB* [Ecotrin EC Low Dose 81 MG*] 81 mg PO DAILY 03/07/19 [History Confirmed 03/07/19] Dorzolamide/Timolol OPTH (NF) [Cosopt (NF)] 1 drop BOTH EYES BID 03/07/19 [ History Confirmed 03/07/19] levETIRAcetam TAB* [Keppra TAB*] 1,500 mg PO BID 03/07/19 [History Confirmed ] PMH/Surg Hx/FS Hx/Imm Hx Previously Healthy: Yes Endocrine/Hematology History: Reports: Hx Anemia Denies: Hx Diabetes, Hx Systemic Lupus Erythematosus Cardiovascular History: Reports: Hx Congenital Heart Disease, Hx Coronary Artery Disease Denies: Hx Congestive Heart Failure, Hx Hypertension, Other Cardiovascular Problems/Disorders Respiratory History: Reports: Hx Chronic Bronchitis Denies: Other Respiratory Problems/Disorders GI History: Denies: Other GI Disorders History: Reports: Hx Kidney Stones, Hx Renal Disease - left hydro Denies: Hx Dialysis Musculoskeletal History: Denies: Hx Rheumatoid Arthritis, Other Musculoskeletal History Sensory History: Reports: Hx Contacts or Glasses, Hx Glaucoma Denies: Hx Hearing Aid Opthamlomology History: Reports: Hx Contacts or Glasses, Hx Glaucoma Neurological History: Reports: Hx Developmental Delay - MILD MR, Hx Seizures, Other Neuro Impairments/Disorders - , SEIZURE 2011, IN [place] FROM SUBDURAL HEMATOMA - Cancer History Cancer Type, Location and Year: LEFT MAXILLA MASS Hx Chemotherapy: No - Surgical History Surgery Procedure, Year, and Place: OPEN HEART SURGERY A . KIDNEY STONES, 2006, [facility]. PACEMAKER. TUMER RESECTION OF LEFT MAXILLARY SINUS Hx Anesthesia Reactions: No - Immunization History Date of Tetanus Vaccine: Unk Date of Influenza Vaccine: Unk Infectious Disease History: No Infectious Disease History: Denies: Traveled Outside the [place] in Last 30 Days - Family History Known Family History: Positive: Cardiac Disease - Social History Alcohol Use: None Hx Substance Use: No Substance Use Type: Reports: None Hx Tobacco Use: No Smoking Status (MU): Never Smoked Tobacco Have You Smoked in the Last Year: No Review of Systems - ROS Summary Review of Systems Summary: LEVEL 5 CAVEAT Positive: Fatigue Positive: Abdominal Pain, Vomiting, Diarrhea, Nausea Positive: Weakness All Other Systems Reviewed And Are Negative: No Physical Exam - Summary Physical Exam Summary: Appearance: Acutely ill-appearing man lying on stretcher somewhat lethargic but awake. Skin: Warm, dry, poor skin turgor Eyes: sclera anicteric, no conjunctival pallor ENT: mucous membranes quite dry, pharynx appears normal Neck: Supple, nontender Respiratory: Clear to auscultation, no signs of respiratory distress Cardiovascular: Slightly tachycardic, otherwise regular rhythm. No murmurs. Normal distal pulses in tibial and radial bilaterally. Abdomen: Soft, nontender, normal active bowel sounds present Musculoskeletal: Normal, Strength/ROM Intact Neurological: A&Ox3, awake and alert, mentation is normal, speech is fluent and appropriate Psychiatric: affect is normal, does not appear anxious or depressed Triage Information Reviewed: Yes Vital Signs On Initial Exam: Initial Vitals Temp Pulse Resp BP Pulse Ox 99.4 F 120 16 109/77 100 03/07/19 20:37 03/07/19 20:37 03/07/19 20:37 03/07/19 20:37 03/07/19 20:37 Vital Signs Reviewed: Yes Completion Of Physical Exam Limited Due To: Level 5 Procedures - Sedation Patient Received Moderate/Deep Sedation with Procedure: No Diagnostics - Vital Signs Vital Signs Temp Pulse Resp BP Pulse Ox 03/07/19 20:37 99.4 F 120 16 109/77 100 - Laboratory Result Diagrams: 03/07/19 21:28 03/07/19 21:28 Lab Statement: Any lab studies that have been ordered have been reviewed, and results considered in the medical decision making process. - CT CT a/p CT Interpretation Completed By: Radiologist Summary of CT Findings: 1. No CT findings to correlate with patient's symptomatology. 2. Chronic left UVJ ureteral obstruction. 3. Clinic bilateral calculi. ED physician has reviewed this report. - EKG 2122 Cardiac Rate: NL - 90bpm EKG Rhythm: Sinus Rhythm ST Segment: Normal Ectopy: None Summary of EKG Findings: EKG at 2122 shows NSR at 90bpm, P waves, QRS complex, and T waves are within normal limits, T waves and intervals are normal, no ischemic changes. This is a normal EKG. ED physician has reviewed and interpreted this EKG. GIGU Course/Dx - Course Course Of Treatment: Pt is a 64 y/o M presenting to the ED with his sister with a chief complaint of GI issues. LEVEL 5 CAVEAT d/t pts intellectual disability , pts sister is giving hx. He has had abd pain with N/V/D that has worsened over time, and tonight he was incredibly weak and fatigued. Denies blood in stool or vomit that pts sister is aware of. On exam, pt is an acutely ill- appearing man lying on the stretcher somewhat lethargic but awake. His skin has poor turgor, and his mucous membranes are quite dry. He is somewhat tachycardic. EKG at 2122 shows NSR at 90bpm, P waves, QRS complex, and T waves are within normal limits, T waves and intervals are normal, no ischemic changes. This is a normal EKG. ED physician has reviewed and interpreted this EKG. CT a/p shows: 1. No CT findings to correlate with patient's symptomatology. 2. Chronic left UVJ ureteral obstruction. 3. Clinic bilateral calculi. I spoke with Dr. Richardson at 0116 who will be coming to evaluate the pt for admission. Dx will be gastroenteritis. - Diagnoses Provider Diagnoses: Gastroenteritis Discharge ED - Sign-Out/Discharge Documenting (check all that apply): Patient Departure - Discharge Plan Condition: Stable Disposition: ADMITTED TO [facility] Referrals: Otto Aguilar MD [Primary Care Provider] - - Billing Disposition and Condition Condition: STABLE Disposition: Admitted to [facility] - Attestation Statements Document Initiated by Sahil: Yes Documenting Scribe: Tess Boyer Provider For Whom Sahil is Documenting (Include Credential): Ced Bronson MD. Scribe Attestation: Tess Hernández, yanelisibed for Ced Bronson MD. on 03/08/19 at 0158. Scribe Documentation Reviewed: Yes Provider Attestation: The documentation as recorded by the sahil, Tess Boyer accurately reflects the service I personally performed and the decisions made by me, Ced Bronson MD. Status of Yanelisibe Document: Viewed Consult Consult: I spoke with Dr. Richardson at 0116 who will be coming to evaluate the pt for admission.
[2019-03-07 21:45] LABS: ABS Lymphocytes 0.1 10^3/ul (1.0-4.8); ABS Monocytes 0.4 10^3/ul (0-0.8); ABS Neutrophils 5.8 10^3/ul (1.5-7.7); Eosinophil % 0.1 %; Hematocrit 37 % (42-52); Mean Corpuscular HGB Conc 35 g/dL (31-36); Mean Corpuscular Hemoglobin 32 pg (27-31); Mean Corpuscular Volume 91 fL (80-94); Red Blood Count 4.08 10^6 /uL (4.18-5.48); Red Cell Distribution Width 14 % (10-15); White Blood Count 6.4 10^3/uL (3.5-10.8)
[2019-03-07 21:53] LABS: Albumin 3.4 g/dL (3.2-5.2); BUN/Creatinine Ratio 21.2 (8-20); C Reactive Protein 275.86 mg/L (<8.01); EGFR African American 79.3 (>60); EGFR Non-African American 65.5 (>60); Globulin 3.4 g/dL (2-4); Potassium 3.5 mmol/L (3.5-5.0); Total Bilirubin 0.7 mg/dL (0.2-1.0); Total Protein 6.8 g/dL (6.4-8.9)
[2019-03-07 22:46] LABS: Mean Platelet Volume 7.4 fL (7.4-10.4); Platelet Count 81 10^3/uL (150-450)
[2019-03-08] MEDS ORDERED: Iohexol 300* (CONTRAST) 10 ML SDV IV ONE (00:08)
[2019-03-08] MEDS: Acetaminophen TAB* 325 MG PO PRN ×2 (03:35→09:44)
[2019-03-08] MEDS: Lactated Ringers 1000 ML Bag* 1,000 ML IV SCH ×2 (03:35→04:54)
[2019-03-08] MEDS: PROCHLORPERAZINE INJ 5 MG/ML 2 ML VIAL IV PRN (03:44)
--- NOTE | 2019-03-08 04:33 | HP ---
CC: Dr. Aguilar * HISTORY AND PHYSICAL: DATE OF ADMISSION: 03/08/19 PRIMARY CARE PROVIDER: Dr. Aguilar. CHIEF COMPLAINT: Abdominal pain, nausea, vomiting, and diarrhea. HISTORY OF PRESENT ILLNESS: Mr. 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 The patient himself sleeps through my exam and questioning. His sister, who is his healthcare proxy, though he does not live with her, answers questions. She states that for 3 days , he has had profuse watery diarrhea and nausea and vomiting. He has not been really keep anything down. In the emergency room, he has refused to try to eat or drink. The patient is able to tell me that he has abdominal pain. When I ask him where, he is able to point and he points the epigastrium. He does not otherwise answer any of my questions. His sister states that he almost fell on the evening of 03/07/19 and because of this, she brought him to the emergency room. It was reported that he was almost staggering or off balance due to feeling dizzy. PAST MEDICAL HISTORY: 1. Seizure disorder. 2. History of third degree heart block, status post pacemaker insertion. 3. Congenital heart disease, status post surgery as an infant. 4. Subclavian steal syndrome. 5. 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 PAST SURGICAL HISTORY: 1. Heart surgery as an infant. 2. Pacer. 3. Left maxillary sinus surgery. MEDICATIONS: 1. Aspirin 81 mg p.o. daily. 2. Keppra 1500 mg p.o. b.i.d. 3. Cosopt 1 drop to both eyes twice daily. ALLERGIES: No known drug allergies. FAMILY HISTORY: Mom had breast cancer. Dad had small cell lung cancer. SOCIAL HISTORY: The patient does not smoke. He does not drink alcohol. He does not work. He lives with his sister. He is not . He has no children. His sister, Nury, who is here present currently is his healthcare proxy. REVIEW OF SYSTEMS: Other than the patient stating that he has abdominal pain, is unobtainable from the patient due to him sleeping. PHYSICAL EXAMINATION GENERAL: The patient is a well-developed, middle-aged, thin male, seen lying on his side in the stretcher, in no acute distress. VITAL SIGNS: Blood pressure 108/65, pulse 86, respirations 16, temperature 99.4 , O2 sat 99% on room air. HEENT: The patient does not open his eyes for me. I am able to lift the lids and see round pupils bilaterally. Extraocular muscles are intact. Oropharynx is clear. Oral mucosa is severely dry. There is no submandibular, cervical, or supraclavicular adenopathy. PULMONARY: Lungs are clear to auscultation bilaterally. CARDIAC: Normal S1, S2. Regular rate and rhythm. I do not appreciate any murmurs. There is no lower extremity edema. ABDOMEN: Bowel sounds are present. Abdomen is soft, nondistended. He is moderately tender to palpation in the epigastrium. MUSCULOSKELETAL: The patient does shift around in the stretcher, but otherwise , range of motion is not tested. SKIN: Visible areas of skin are warm, dry, and without rash. NEUROLOGIC: Not tested as the patient sleeps through my exam and is unable to cooperate. PSYCHIATRIC: Unable to be evaluated due to the patient sleeping. DIAGNOSTIC STUDIES/LABORATORY DATA: WBC 6.4, hemoglobin 13.0, hematocrit 37, platelets 81,000. Sodium 137, potassium 3.5, chloride 103, CO2 of 25, BUN 24, creatinine 1.13, glucose 181. Lactic acid 1.9. Calcium 9.0. Bilirubin 0.7, AST 24, ALT 14, alk phos 61. CRP 275.86. Albumin 3.4. Lipase 21. EKG reveals sinus rhythm with no acute ST-T wave abnormalities. CT of the abdomen and pelvis, there is bilateral nephrolithiasis. There is no CT finding to correlate with the patient's symptomatology. There is chronic left UVJ ureteral obstruction. ASSESSMENT AND PLAN: Mr. Goodman is a 64-year-old man who has had 3 days of profuse nausea, vomiting, and diarrhea. He was brought to the emergency room for evaluation after almost falling at home. 1. Dehydration secondary to gastroenteritis. At this point, it seems the patient likely has a viral gastroenteritis. No signs of colitis on CT scan. I questioned if the abdominal pain he is having may be related to frequent harsh vomiting. The patient is clinically very dehydrated. He has received 2 L of fluid in the emergency room and continued on normal saline at 125 mL per hour. He will have Zofran and Compazine for nausea. I am going to hold off on any pain medication for now. He will be started on a clear liquid diet when he wants to try to eat and drink and this can be advanced as tolerated. 2. Thrombocytopenia. The patient's platelet count is low at 81,000 today. This is completely new. I questioned if this is secondary to a viral infection. His platelets will need to be monitored closely. 3. Seizure disorder. We will continue with Keppra 1500 mg p.o. twice daily. 4. DVT prophylaxis. According to the Adult Thrombosis Prophylaxis Risk Factor Assessment Guide, the patient has a total risk factor score of 2, making him moderate risk. Ambulation will be utilized for DVT prophylaxis. 5. Code status is full. TIME SPENT: Fifty minutes was spent admitting this patient. [id number]/[facility] #: [id number] MTDD
[2019-03-08] MEDS: Ondansetron INJ* 2 MG/ML VIAL IV PRN (05:01)
[2019-03-08] MEDS: NS 0.9% 1000 ML** 1,000 ML IV SCH ×3 (05:58→22:23)
[2019-03-08] MEDS: Dorzolamide/Timolol OPTH (NF) 10 ML BOT BOTH EYES SCH ×2 (09:40→21:20)
[2019-03-08] MEDS: levETIRAcetam LIQ* 500 MG/5 ML UDC PO SCH ×2 (09:42→21:19)
[2019-03-08] MEDS: Aspirin EC TAB* 81 MG TAB.EC PO SCH (09:43)
[2019-03-08 10:21] LABS: Urine Appearance Clear; Urine Bilirubin Negative (Negative); Urine Blood 2+ (Negative); Urine Color Yellow; Urine Glucose Negative (Negative); Urine Ketones Negative (Negative); Urine Nitrite Negative (Negative); Urine Protein 1+(30 mg/dL) (Negative); Urine Specific Gravity 1.032 (1.010-1.030); Urine Urobilinogen Negative (Negative)
[2019-03-08 10:22] LABS: Urine Bacteria Absent (Absent); Urine Red Blood Cell 1+(3-5/hpf) (Absent); Urine White Blood Cell Trace(0-5/hpf) (Absent)
--- NOTE | 2019-03-08 12:00 | PN ---
Subjective Date of Service: 03/08/19 Interval History: Mr. Goodman is not feeling well this morning. He c/o general malaise. He is very cold and has been unable to get warm. Severe abdominal pain. He was not able to tolerate clear liquids for breakfast. C/o nausea, but no vomiting. Nursing reports patient is meeting SIRS criteria, otherwise no concerns. Family History: Unchanged from Admission Social History: Unchanged from Admission Past Medical History: Unchanged from Admission Objective Active Medications: Acetaminophen (Tylenol Tab*) 650 mg PO Q4H PRN MILD PAIN or TEMP > 100.4 Aspirin (Aspirin Ec Tab*) 81 mg PO DAILY [place] Dorzolamide/Timolol (Cosopt (Nf)) 1 drop BOTH EYES BID [place]; Protocol Sodium Chloride (Ns 0.9% 1000 Ml) 1,000 mls @ 125 mls/hr IV PER RATE [place] Lactated Ringer's (Lactated Ringers 1000 Ml Bag*) 1,000 mls @ 0 mls/hr IV WIDE OPEN [place] Levetiracetam (Keppra Liq*) 1,500 mg PO BID [place] Ondansetron HCl (Zofran Inj*) 4 mg IV Q6H PRN [place] Prochlorperazine Edisylate (Compazine Inj*) 10 mg IV Q6H PRN NAUSEA/VOMITING Vital Signs - 8 hr 03/08/19 03/08/19 03/08/19 04:20 05:00 05:30 Temperature 102.2 F 101.2 F 100.1 F Pulse Rate Respiratory Rate Blood Pressure (mmHg) O2 Sat by Pulse Oximetry 03/08/19 03/08/19 06:00 07:15 Temperature 99.9 F 97.9 F Pulse Rate 65 Respiratory 20 Rate Blood Pressure 108/60 95/53 (mmHg) O2 Sat by Pulse 100 Oximetry Oxygen Devices in Use Now: OxyMask - 2L Appearance: Middle-aged male lying in bed in NAD Neck: NL Appearance and Movements; NL JVP, Trachea Midline Respiratory: Symmetrical Chest Expansion and Respiratory Effort, Clear to Auscultation Cardiovascular: NL Sounds; No Murmurs; No JVD, RRR Abdominal: - - Diffusely tender, normoactive BS Extremities: No Edema Neurological: Alert and Oriented x 3 Lines/Tubes/Other Access: Clean, Dry and Intact Peripheral IV Result Diagrams: 03/07/19 21:28 03/07/19 21:28 Assess/Plan/Problems-Billing Assessment: Mr. 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 - Patient Problems (1) Gastroenteritis Code(s): K52.9 - NONINFECTIVE GASTROENTERITIS AND COLITIS, UNSPECIFIED Comment : - Symptoms present for 3 days prior to admission - Suspect viral gastroenteritis - Clear liquids as tolerated - Continue IVF, Zofran, Compazine (2) SIRS (systemic inflammatory response syndrome) Code(s): R65.10 - SIRS OF NON-INFECTIOUS ORIGIN W/O ACUTE ORGAN DYSFUNCTION Comment: - Meeting criteria with fever, tachycardia, tachypnea; suspect secondary to viral gastroenteritis - No evidence of bacterial infection so will hold antibiotics - Continue Tylenol and ibuprofen for fever (3) Thrombocytopenia Code(s): D69.6 - THROMBOCYTOPENIA, UNSPECIFIED Comment: - Suspect secondary to viral infection - Check CBC in AM (4) Seizure disorder Code(s): G40.909 - EPILEPSY, UNSP, NOT INTRACTABLE, WITHOUT STATUS EPILEPTICUS Comment: - Continue Keppra (5) Subclavian steal syndrome Code(s): G45.8 - OTH TRANSIENT CEREBRAL ISCHEMIC ATTACKS AND RELATED SYND Comment: - Blood pressures only accurate on RUE (6) DVT prophylaxis Comment: - SCDs only in the setting of thrombocytopenia (7) Full code status Code(s): Z78.9 - OTHER SPECIFIED HEALTH STATUS Comment: Status and Disposition: Observation. Anticipate d/c home when medically stable, likely 1-2 days. Attending: Alejandro Roblero
[2019-03-08] MEDS: Ibuprofen TAB* 600 MG PO PRN ×2 (12:11→21:19)
[2019-03-09] MEDS: NS 0.9% 1000 ML** 1,000 ML IV SCH ×3 (06:12→22:58)
[2019-03-09 06:41] LABS: BUN/Creatinine Ratio 19.2 (8-20); Calcium 7.7 mg/dL (8.6-10.3); EGFR African American 121.6 (>60); EGFR Non-African American 100.5 (>60); Potassium 3.2 mmol/L (3.5-5.0)
[2019-03-09 07:04] LABS: ABS Lymphocytes 0.1 10^3/ul (1.0-4.8); ABS Monocytes 0.5 10^3/ul (0-0.8); ABS Neutrophils 4.7 10^3/ul (1.5-7.7); Eosinophil % 0.2 %; Hematocrit 35 % (42-52); Hemoglobin 12.3 g/dL (14.0-18.0); Lymphocyte % 2.4 %; Mean Corpuscular HGB Conc 35 g/dL (31-36); Mean Corpuscular Hemoglobin 32 pg (27-31); Mean Corpuscular Volume 90 fL (80-94); Mean Platelet Volume 8.8 fL (7.4-10.4); Platelet Count 47 10^3/uL (150-450); Red Blood Count 3.85 10^6 /uL (4.18-5.48); Red Cell Distribution Width 14 % (10-15); White Blood Count 5.4 10^3/uL (3.5-10.8)
[2019-03-09 07:42] LABS: Magnesium 1.7 mg/dL (1.9-2.7)
[2019-03-09] MEDS: KCL 20 MEQ/100 ML IVPREMIX* 20 MEQ/100 ML BAG IV SCH ×2 (07:48→11:58)
[2019-03-09] MEDS: Acetaminophen TAB* 325 MG PO PRN ×3 (07:56→20:24)
[2019-03-09] MEDS: Aspirin EC TAB* 81 MG TAB.EC PO SCH (07:56)
[2019-03-09] MEDS: levETIRAcetam LIQ* 500 MG/5 ML UDC PO SCH ×2 (07:56→20:21)
[2019-03-09] MEDS: Dorzolamide/Timolol OPTH (NF) 10 ML BOT BOTH EYES SCH ×2 (07:58→20:17)
[2019-03-09] MEDS: Ondansetron INJ* 2 MG/ML VIAL IV PRN ×2 (07:58→20:24)
[2019-03-09] MEDS ORDERED: Magnesium Sulfate 2 GM IV* 2 GM/50 ML BAG IVPB ONE (08:24)
[2019-03-09] MEDS ORDERED: Senna TAB 8.6 mg* TAB PO PRN (12:06)
[2019-03-09] MEDS: PROCHLORPERAZINE INJ 5 MG/ML 2 ML VIAL IV PRN (12:08)
--- NOTE | 2019-03-09 14:07 | PN ---
Subjective Date of Service: 03/09/19 Interval History: Patient continues to have pain in RLQ. Patient states this pain kept him up all night. Patient denies radiation, Rebound. Patient has moderate intermittent nausea, but has no vomited recently. Patient has not had anything like this before. Patient states he has been getting cold chills, but denies subjective fevers. Family History: Unchanged from Admission Social History: Unchanged from Admission Past Medical History: Unchanged from Admission Objective Active Medications: Acetaminophen (Tylenol Tab*) 650 mg PO Q4H PRN PRN Reason: MILD PAIN or TEMP > 100.4 Last Admin: 03/09/19 12:08 Dose: 650 mg Aspirin (Aspirin Ec Tab*) 81 mg PO DAILY [facility] Last Admin: 03/09/19 07:56 Dose: 81 mg Dorzolamide/Timolol (Cosopt (Nf)) 1 drop BOTH EYES BID [facility]; Protocol Last Admin: 03/09/19 07:58 Dose: Not Given Sodium Chloride (Ns 0.9% 1000 Ml) 1,000 mls @ 125 mls/hr IV PER RATE [facility] Last Admin: 03/09/19 13:33 Dose: 125 mls/hr Levetiracetam (Keppra Liq*) 1,500 mg PO BID [facility] Last Admin: 03/09/19 07:56 Dose: 1,500 mg Ondansetron HCl (Zofran Inj*) 4 mg IV Q6H PRN PRN Reason: NAUSEA Last Admin: 03/09/19 07:58 Dose: 4 mg Oxycodone HCl (Roxycodone Tab*) 5 mg PO Q6H PRN PRN Reason: PAIN - SEVERE Prochlorperazine Edisylate (Compazine Inj*) 10 mg IV Q6H PRN PRN Reason: NAUSEA/VOMITING Last Admin: 03/09/19 12:08 Dose: 10 mg Senna (Senokot 8.6 Mg Tab*) 1 tab PO DAILY PRN PRN Reason: CONSTIPATION Vital Signs - 8 hr 03/09/19 07:15 Temperature 97.8 F Pulse Rate 93 Respiratory 20 Rate Blood Pressure 85/56 (mmHg) Oxygen Devices in Use Now: None Appearance: Patient is a 64yo male who appears stated age and is sitting in the bed in [facility]. Eyes: No Scleral Icterus, PERRLA Ears/Nose/Mouth/Throat: NL Teeth, Lips, Gums, Clear Oropharnyx, Mucous Membranes Moist Neck: NL Appearance and Movements; NL JVP, Trachea Midline Respiratory: Symmetrical Chest Expansion and Respiratory Effort, Clear to Auscultation Cardiovascular: NL Sounds; No Murmurs; No JVD, RRR, No Edema Abdominal: No Hepatosplenomegaly, - - Distended, normoactive bowel sounds. Tenderness to palpation in RLQ without rebound or guarding. Lymphatic: No Cervical Adenopathy Extremities: No Edema, No Clubbing, Cyanosis Skin: No Rash or Ulcers, No Nodules or Sclerosis Neurological: Alert and Oriented x 3, NL Sensation, NL Muscle Strength and Tone , - - Left Esotropia. Result Diagrams: 03/09/19 05:51 03/09/19 05:49 Microbiology and Other Data: Microbiology 03/08/19 10:07 Urine Culture - Preliminary Urine Staphylococcus Aureus Assess/Plan/Problems-Billing Assessment: Mr. 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 - Patient Problems (1) Gastroenteritis Current Visit: Yes Status: Acute Code(s): K52.9 - NONINFECTIVE GASTROENTERITIS AND COLITIS, UNSPECIFIED SNOMED Code(s): 53080450 Comment: - Symptoms present for 3 days prior to admission - Suspect viral gastroenteritis, improving nausea, but worsening pain and feelign of constipation - Clear liquids as tolerated - Continue IVF, Zofran, Compazine - Start Laxatives due to distended colon on Abdominal XR. (2) SIRS (systemic inflammatory response syndrome) Current Visit: Yes Status: Acute Code(s): R65.10 - SIRS OF NON-INFECTIOUS ORIGIN W/O ACUTE ORGAN DYSFUNCTION SNOMED Code(s): 380421513 Comment: - Meeting criteria with fever, tachycardia, tachypnea; suspect secondary to viral gastroenteritis - No evidence of bacterial infection so will hold antibiotics - Continue Tylenol (3) Seizure disorder Current Visit: Yes Status: Acute Code(s): G40.909 - EPILEPSY, UNSP, NOT INTRACTABLE, WITHOUT STATUS EPILEPTICUS SNOMED Code(s): 611545344 Comment: - Continue Keppra (4) Subclavian steal syndrome Current Visit: Yes Status: Acute Code(s): G45.8 - OTH TRANSIENT CEREBRAL ISCHEMIC ATTACKS AND RELATED SYND SNOMED Code(s): 41163040 Comment: - Blood pressures only accurate on RUE (5) Thrombocytopenia Current Visit: Yes Status: Acute Code(s): D69.6 - THROMBOCYTOPENIA, UNSPECIFIED SNOMED Code(s): 329529909 Comment: - Suspect secondary to viral infection, worsening, monitor closely - Also associated with acute on chronic lymphopenia with reactive lymphocytes consistent with viral infection. - Check CBC in AM (6) Congenital heart disease Current Visit: No Status: Acute (7) DVT prophylaxis Current Visit: No Status: Acute Code(s): LTF8885 - SNOMED Code(s): 614124030 Comment: - SCDs only in the setting of thrombocytopenia (8) Full code status Current Visit: No Status: Acute Code(s): Z78.9 - OTHER SPECIFIED HEALTH STATUS SNOMED Code(s): 399253440 Comment: Status and Disposition: Observation. Anticipate d/c home when medically stable, likely 1-2 days.
[2019-03-10 05:51] LABS: ABS Basophils 0.1 10^3/ul (0-0.2); ABS Eosinophils 0.1 10^3/ul (0-0.6); ABS Lymphocytes 0.2 10^3/ul (1.0-4.8); ABS Monocytes 0.7 10^3/ul (0-0.8); Eosinophil % 1.4 %; Hematocrit 34 % (42-52); Hemoglobin 11.8 g/dL (14.0-18.0); Lymphocyte % 2.6 %; Mean Corpuscular HGB Conc 35 g/dL (31-36); Mean Corpuscular Hemoglobin 32 pg (27-31); Mean Corpuscular Volume 91 fL (80-94); Mean Platelet Volume 9.5 fL (7.4-10.4); Nucleated Red Blood Cells % 0.1; Platelet Count 36 10^3/uL (150-450); Red Blood Count 3.69 10^6 /uL (4.18-5.48); Red Cell Distribution Width 14 % (10-15); White Blood Count 7.1 10^3/uL (3.5-10.8)
[2019-03-10 06:07] LABS: BUN/Creatinine Ratio 13.2 (8-20); C Reactive Protein 230.81 mg/L (<8.01); Calcium 7.5 mg/dL (8.6-10.3); EGFR African American 125.3 (>60); EGFR Non-African American 103.6 (>60); Potassium 3.1 mmol/L (3.5-5.0)
[2019-03-10] MEDS ORDERED: NS 0.9% 1000 ML** 1,000 ML IV ONE (06:59)
[2019-03-10] MEDS: Aspirin EC TAB* 81 MG TAB.EC PO SCH (08:39)
[2019-03-10] MEDS: levETIRAcetam LIQ* 500 MG/5 ML UDC PO SCH ×2 (08:39→20:23)
[2019-03-10] MEDS: Dorzolamide/Timolol OPTH (NF) 10 ML BOT BOTH EYES SCH ×2 (08:40→19:49)
[2019-03-10] MEDS: oxyCODONE TAB* 5 MG TAB PO PRN ×2 (09:00→20:22)
[2019-03-10] MEDS: Ondansetron INJ* 2 MG/ML VIAL IV PRN ×2 (09:01→21:02)
[2019-03-10] MEDS: KCL 20 MEQ/100 ML IVPREMIX* 20 MEQ/100 ML BAG IV SCH ×2 (09:52→13:06)
[2019-03-10] MEDS: NS 0.9% 1000 ML** 1,000 ML IV SCH ×2 (09:52→18:19)
[2019-03-10] MEDS ORDERED: Iohexol 300* (CONTRAST) 10 ML SDV IV ONE (11:03)
--- NOTE | 2019-03-10 15:13 | PN ---
Subjective Date of Service: 03/10/19 Interval History: Patient is complaining of persistent abdominal pain in his RLQ/Suprapubic area. Patient denies any changes to his urination. Patient denies passing gas or having a BM, though he is not a good historian. Patient has slight dizziness on standing, but no overt presyncope. Patient denies CP, SOB, F/C, palpitations, or other pain. Family History: Unchanged from Admission Social History: Unchanged from Admission Past Medical History: Unchanged from Admission Objective Active Medications: Acetaminophen (Tylenol Tab*) 650 mg PO Q4H PRN PRN Reason: MILD PAIN or TEMP > 100.4 Last Admin: 03/09/19 20:24 Dose: 650 mg Aspirin (Aspirin Ec Tab*) 81 mg PO DAILY [facility] Last Admin: 03/10/19 08:39 Dose: 81 mg Dorzolamide/Timolol (Cosopt (Nf)) 1 drop BOTH EYES BID [facility]; Protocol Last Admin: 03/10/19 08:40 Dose: Not Given Sodium Chloride (Ns 0.9% 1000 Ml) 1,000 mls @ 125 mls/hr IV PER RATE [facility] Last Admin: 03/10/19 09:52 Dose: 125 mls/hr Levetiracetam (Keppra Liq*) 1,500 mg PO BID [facility] Last Admin: 03/10/19 08:39 Dose: 1,500 mg Ondansetron HCl (Zofran Inj*) 4 mg IV Q6H PRN PRN Reason: NAUSEA Last Admin: 03/10/19 09:01 Dose: 4 mg Oxycodone HCl (Roxycodone Tab*) 5 mg PO Q6H PRN PRN Reason: PAIN - SEVERE Last Admin: 03/10/19 09:00 Dose: 5 mg Prochlorperazine Edisylate (Compazine Inj*) 10 mg IV Q6H PRN PRN Reason: NAUSEA/VOMITING Last Admin: 03/09/19 12:08 Dose: 10 mg Senna (Senokot 8.6 Mg Tab*) 1 tab PO DAILY PRN PRN Reason: CONSTIPATION Last Admin: 03/10/19 09:03 Dose: 1 tab Vital Signs - 8 hr 03/10/19 03/10/19 03/10/19 07:15 09:00 11:06 Temperature 98.5 F Pulse Rate 88 Respiratory 20 20 19 Rate Blood Pressure 94/55 (mmHg) O2 Sat by Pulse 97 Oximetry 03/10/19 13:01 Temperature 98.3 F Pulse Rate 100 Respiratory 20 Rate Blood Pressure 115/71 (mmHg) O2 Sat by Pulse 94 Oximetry Oxygen Devices in Use Now: None Appearance: Patient is a 64yo male who appears stated age and is sitting in the bed in [facility]. Eyes: No Scleral Icterus, PERRLA Ears/Nose/Mouth/Throat: NL Teeth, Lips, Gums, Clear Oropharnyx, Mucous Membranes Moist Neck: NL Appearance and Movements; NL JVP, Trachea Midline Respiratory: Symmetrical Chest Expansion and Respiratory Effort, Clear to Auscultation Cardiovascular: NL Sounds; No Murmurs; No JVD, RRR, No Edema Abdominal: No Hepatosplenomegaly, - - Moderately distended, Hypertympanic to percussion. Tender to palpation without rebound or guarding in RLQ. Lymphatic: No Cervical Adenopathy Extremities: No Edema, No Clubbing, Cyanosis Skin: No Rash or Ulcers, No Nodules or Sclerosis Neurological: Alert and Oriented x 3, NL Sensation, NL Muscle Strength and Tone , - - CN II-XII intact. Result Diagrams: 03/10/19 05:38 03/10/19 05:38 Microbiology and Other Data: Microbiology 03/08/19 10:07 Urine Culture - Preliminary Urine Staphylococcus Aureus Assess/Plan/Problems-Billing Assessment: Mr. 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 - Patient Problems (1) Gastroenteritis Current Visit: Yes Status: Acute Code(s): K52.9 - NONINFECTIVE GASTROENTERITIS AND COLITIS, UNSPECIFIED SNOMED Code(s): 70951751 Comment: - Symptoms present for 3 days prior to admission - Suspect viral gastroenteritis, improving nausea, but worsening pain and feeling of constipation - Clear liquids as tolerated, advance when passing gas - Continue IVF, Zofran, Compazine - Repeat Abdominal CT shows no colitis or bowel obstruction. Does show seom gaseous distention of the bowel. (2) SIRS (systemic inflammatory response syndrome) Current Visit: Yes Status: Acute Code(s): R65.10 - SIRS OF NON-INFECTIOUS ORIGIN W/O ACUTE ORGAN DYSFUNCTION SNOMED Code(s): 332439800 Comment: - Meeting criteria with fever, tachycardia, tachypnea; suspect secondary to viral gastroenteritis - No evidence of bacterial infection and improvement of fevers, so will hold antibiotics - Continue Tylenol (3) Seizure disorder Current Visit: Yes Status: Acute Code(s): G40.909 - EPILEPSY, UNSP, NOT INTRACTABLE, WITHOUT STATUS EPILEPTICUS SNOMED Code(s): 401109252 Comment: - Continue Keppra (4) Subclavian steal syndrome Current Visit: Yes Status: Acute Code(s): G45.8 - OTH TRANSIENT CEREBRAL ISCHEMIC ATTACKS AND RELATED SYND SNOMED Code(s): 23051053 Comment: - Blood pressures only accurate on RUE (5) Thrombocytopenia Current Visit: Yes Status: Acute Code(s): D69.6 - THROMBOCYTOPENIA, UNSPECIFIED SNOMED Code(s): 361787622 Comment: - Suspect secondary to viral infection, worsening, monitor closely - No signs of bleeding. - Also associated with acute on chronic lymphopenia with reactive lymphocytes consistent with viral infection. - Check CBC in AM, Consider Hematology consult if continued worsening. (6) Congenital heart disease Current Visit: No Status: Acute (7) DVT prophylaxis Current Visit: No Status: Acute Code(s): PME5821 - SNOMED Code(s): 492210322 Comment: - SCDs only in the setting of thrombocytopenia (8) Full code status Current Visit: No Status: Acute Code(s): Z78.9 - OTHER SPECIFIED HEALTH STATUS SNOMED Code(s): 754052383 Comment: Status and Disposition: Observation. Anticipate d/c home when medically stable
[2019-03-10] MEDS: Acetaminophen TAB* 325 MG PO PRN (16:10)
[2019-03-10] MEDS ORDERED: Piperacillin/Tazobac ADVAN(*) 3.375 GM in NS 0.9% 100 ML* 100 ML IVPB ONE (17:21)
--- NOTE | 2019-03-10 17:27 | PN ---
Hospitalist Progress Note Date of Service: 03/10/19 Notified in afternoon for change in status due to recurrent fever and tachycardia. Abdominal pain persistent and slightly improved. Patient denies any respiratory symptoms, patient does not feel feverish. Patient has no worsening in his Nausea. Patient has been sleeping most of the afternoon. Due to worsening fevers, BC x2 ordered, Tylenol PRN, Flu swab, and Zosyn ordered.
[2019-03-10] MEDS ORDERED: Zosyn per Pharmacy* NOTE FOLLOW UP SCH (18:00)
[2019-03-10 18:42] LABS: Influenza A Molecular NEGATIVE (Negative); Influenza B Molecular NEGATIVE (Negative)
[2019-03-10] MEDS: ZOSYN 3.375 GM Q8H per EXTENDED INFUSION IVPB SCH ×2 (22:04)
[2019-03-11] MEDS: Acetaminophen TAB* 325 MG PO PRN ×2 (00:20→22:46)
[2019-03-11 05:35] LABS: ABS Lymphocytes 0.3 10^3/ul (1.0-4.8); ABS Monocytes 0.9 10^3/ul (0-0.8); ABS Neutrophils 7.8 10^3/ul (1.5-7.7); Hematocrit 34 % (42-52); Hemoglobin 11.5 g/dL (14.0-18.0); Lymphocyte % 3.8 %; Mean Corpuscular HGB Conc 34 g/dL (31-36); Mean Corpuscular Hemoglobin 31 pg (27-31); Mean Corpuscular Volume 92 fL (80-94); Mean Platelet Volume 9.5 fL (7.4-10.4); Platelet Count 45 10^3/uL (150-450); Red Blood Count 3.66 10^6 /uL (4.18-5.48); Red Cell Distribution Width 15 % (10-15); White Blood Count 9.1 10^3/uL (3.5-10.8)
[2019-03-11 05:47] LABS: BUN/Creatinine Ratio 12.2 (8-20); C Reactive Protein 255.75 mg/L (<8.01); Calcium 7.5 mg/dL (8.6-10.3); EGFR African American 129.3 (>60); EGFR Non-African American 106.8 (>60); Magnesium 1.9 mg/dL (1.9-2.7); Potassium 3.3 mmol/L (3.5-5.0)
[2019-03-11] MEDS: ZOSYN 3.375 GM Q8H per EXTENDED INFUSION IVPB SCH ×6 (05:58→22:39)
[2019-03-11] MEDS ORDERED: Ibuprofen TAB* 600 MG PO PRN (07:28)
[2019-03-11] MEDS ORDERED: Ketorolac INJ* 15 MG/ML 1 ML VIAL IV PUSH PRN (07:52)
[2019-03-11] MEDS: Aspirin EC TAB* 81 MG TAB.EC PO SCH (08:20)
[2019-03-11] MEDS: levETIRAcetam LIQ* 500 MG/5 ML UDC PO SCH ×2 (08:20→20:16)
[2019-03-11] MEDS: KCL 20 MEQ/100 ML IVPREMIX* 20 MEQ/100 ML BAG IV SCH ×2 (08:20→11:28)
[2019-03-11] MEDS: Dorzolamide/Timolol OPTH (NF) 10 ML BOT BOTH EYES SCH (08:21)
[2019-03-11] MEDS: NS 0.9% 1000 ML** 1,000 ML IV SCH (10:03)
[2019-03-11] MEDS ORDERED: Polyethylene Glycol 3350* 17 GM PACKET PO PRN (10:43)
[2019-03-11] MEDS ORDERED: oxyCODONE TAB* 5 MG TAB PO PRN (10:43)
--- NOTE | 2019-03-11 15:02 | HP ---
H&P (Free Text) History and Physical: Orthopedic Surgery Consultation H&P Date: 03/11/2019 Requesting Service: Hospitalist medicine Chief Complaint: R>L hip pain. History: A 64-year-old man with a mental delay, who was admitted to the hospital for abdominal pain and diarrhea. A few days after admission, he was found to be bacteremic. He is complaining of bilateral lumbar, lateral hip, and thigh pain. This is worse on the right. He cant tell me how long it has been bothering him for. He did have a recent fall, but cannot provide me details on this. Review of Systems: Negative for recent visual changes, difficulty swallowing, chest pain, shortness of breath, hematuria, easy bruising, diffuse weakness or lack of coordination, and diffuse rash. Positive for recent fall, abdominal pain, diarrhea. 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 No illicit drug use. He lives with his sister. He does not work. FH: Cancer Physical Examination: Constitutional: Temp Pulse Resp BP Pulse Ox 97.7 F 79 16 114/60 93 03/11/19 11:15 03/11/19 11:15 03/11/19 13:16 03/11/19 11:15 03/11/19 11:15 General appearance is healthy and non-septic in no acute distress. Cardiovascular: Pulse examination demonstrates positive pedal pulses with brisk capillary refill. There are no varicosities. Lymphatic: No lymphadenopathy appreciated. Skin: Bilateral upper and lower extremity examination demonstrates no ulcerative lesions. Psychiatric / Neurological: Appropriate affect. There is no significant abnormality in coordination appreciated. Normoreflexive deep tendon reflex of the affected extremity. Musculoskeletal: Bilateral upper extremities show full range of motion with no evidence of instability and no tenderness with palpation and 5/5 strength. There is no gross deformity. He does have some tenderness along the paraspinal musculature of the lumbar spine. He has some mild diffuse tenderness along the lateral hips and thighs. Skin is intact in these areas, with no erythema or ecchymoses. No pain with range of motion of either of his hips. No pain with bilateral knee and ankle range of motion. He has had pain with straight leg raise bilaterally. He has palpable pedal pulses. Imaging: CT scan of his pelvis was reviewed, and I do not see any fractures about the pelvis or hips. Labs: WBC 9.1 HCT 34 Platelets 45 Cr 0.74 CRP 255 BCx with staph aureus Impression and Plan: 64-year-old man with elevated CRP and positive blood cultures. He has bilateral low back, lateral hip and thigh pain. I have a very low concern for septic arthritis of his hips, given his painless range of motion. I would recommend getting x-rays of his bilateral femurs, as these are not covered on the prior CT scan of the pelvis and are within the distribution of his pain. I would also recommend obtaining imaging of his lumbar spine, such as an MRI, as I am more concerned that this could be the source of his pain , and potential infection. His pain is more typical of a lumbar spine distribution, and the bilateral nature is also more consistent with spine pathology. Please reach out to orthopedics if any other orthopedic questions or concerns. Portillo Neely MD
--- NOTE | 2019-03-11 15:34 | PN ---
Subjective Date of Service: 03/11/19 Interval History: Patient is complaining of diffused abdominal pain and pain in the right hip. It is difficult to get a consistent story from the patient about his pain, but it seems to be worse with palpation in the hip area above the trochanter. Patient still endorses some nausea without vomiting. Patient states he is passing gas and small amounts of stool. Patient denies CP, SOB, dizziness, F/C, dysuria, or other pain. Family History: Unchanged from Admission Social History: Unchanged from Admission Past Medical History: Unchanged from Admission Objective Active Medications: Acetaminophen (Tylenol Tab*) 650 mg PO Q4H PRN PRN Reason: MILD PAIN or TEMP > 100.4 Last Admin: 03/11/19 00:20 Dose: 650 mg Aspirin (Aspirin Ec Tab*) 81 mg PO DAILY [facility] Last Admin: 03/11/19 08:20 Dose: 81 mg Dorzolamide/Timolol (Cosopt (Nf)) 1 drop BOTH EYES BID [facility]; Protocol Sodium Chloride (Ns 0.9% 1000 Ml) 1,000 mls @ 75 mls/hr IV PER RATE [facility] Last Admin: 03/11/19 10:03 Dose: 75 mls/hr Piperacillin Sod/Tazobactam (Sod 3.375 gm/ Sodium Chloride) 100 mls @ 25 mls/ hr IVPB Q8H [facility] Last Admin: 03/11/19 14:04 Dose: 25 mls/hr Levetiracetam (Keppra Liq*) 1,500 mg PO BID [facility] Last Admin: 03/11/19 08:20 Dose: 1,500 mg Ondansetron HCl (Zofran Inj*) 4 mg IV Q6H PRN PRN Reason: NAUSEA Last Admin: 03/10/19 21:02 Dose: 4 mg Oxycodone HCl (Roxycodone Tab*) 5 mg PO Q6H PRN PRN Reason: PAIN - SEVERE Last Admin: 03/11/19 11:31 Dose: 5 mg Pharmacy Consult (Zosyn Per Pharmacy*) 1 note FOLLOW UP .ZOSYN PER PHARMACY [facility] Polyethylene Glycol/Electrolytes (Miralax*) 17 gm PO DAILY PRN PRN Reason: CONSTIPATION Last Admin: 03/11/19 11:27 Dose: 17 gm Prochlorperazine Edisylate (Compazine Inj*) 10 mg IV Q6H PRN PRN Reason: NAUSEA/VOMITING Last Admin: 03/09/19 12:08 Dose: 10 mg Senna (Senokot 8.6 Mg Tab*) 1 tab PO DAILY PRN PRN Reason: CONSTIPATION Last Admin: 03/10/19 09:03 Dose: 1 tab Vital Signs - 8 hr 03/11/19 03/11/19 03/11/19 08:00 08:28 11:15 Temperature 98.5 F 97.7 F Pulse Rate 88 79 Respiratory 18 18 18 Rate Blood Pressure 117/59 114/60 (mmHg) O2 Sat by Pulse 99 93 Oximetry 03/11/19 03/11/19 11:31 13:16 Temperature Pulse Rate Respiratory 16 16 Rate Blood Pressure (mmHg) O2 Sat by Pulse Oximetry Oxygen Devices in Use Now: None Appearance: Patient is a 64yo male who appears older than stated age, has had part of his maxilla removed, and is sitting in the bed in [facility]. Eyes: No Scleral Icterus, PERRLA Ears/Nose/Mouth/Throat: NL Teeth, Lips, Gums, Clear Oropharnyx, Mucous Membranes Moist Neck: NL Appearance and Movements; NL JVP, Trachea Midline Respiratory: Symmetrical Chest Expansion and Respiratory Effort, Clear to Auscultation Cardiovascular: NL Sounds; No Murmurs; No JVD, RRR, No Edema Abdominal: No Hepatosplenomegaly, - - Tender to palpation without rebuond or guarding in B/L lower lobes. Lymphatic: No Cervical Adenopathy Extremities: No Edema, No Clubbing, Cyanosis, - - Pain on palpation of the hip. Resistant to pROM. Skin: No Nodules or Sclerosis, - Neurological: Alert and Oriented x 3 Result Diagrams: 03/11/19 05:10 03/11/19 05:10 Microbiology and Other Data: Microbiology 03/08/19 10:07 Urine Culture - Preliminary Urine Staphylococcus Aureus Assess/Plan/Problems-Billing Assessment: Mr. 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 - Patient Problems (1) MSSA bacteremia Current Visit: Yes Status: Acute Code(s): R78.81 - BACTEREMIA SNOMED Code( s): 704064245 Comment: - Found on Blood Culture after fever on 03/10. / Bottles - Likely urinary source. ? Prostatitis, no prostate swelling or significant tenderness on exam. - On Zosyn, narrow after blood sensitivities. - ? Spinal infection vs Hip infection, appreciate Ortho input, low suspicion for septic hip, check spine MRI when available. - Echo to assess for endocarditis, no systemic signs of septic embolization - Pacer in place, may need TERRIE. - ID consult when available. (2) SIRS (systemic inflammatory response syndrome) Current Visit: Yes Status: Acute Code(s): R65.10 - SIRS OF NON-INFECTIOUS ORIGIN W/O ACUTE ORGAN DYSFUNCTION SNOMED Code(s): 525784879 Comment: - Met criteria with fever, tachycardia, tachypnea - Due to Bacteremia of likely urinary source, unclear why no pyuria. - On Zosyn and fluids, now improving vital signs - Continue Tylenol (3) Seizure disorder Current Visit: Yes Status: Acute Code(s): G40.909 - EPILEPSY, UNSP, NOT INTRACTABLE, WITHOUT STATUS EPILEPTICUS SNOMED Code(s): 379116041 Comment: - Continue Keppra (4) Subclavian steal syndrome Current Visit: Yes Status: Acute Code(s): G45.8 - OTH TRANSIENT CEREBRAL ISCHEMIC ATTACKS AND RELATED SYND SNOMED Code(s): 86226553 Comment: - Blood pressures only accurate on RUE (5) Thrombocytopenia Current Visit: Yes Status: Acute Code(s): D69.6 - THROMBOCYTOPENIA, UNSPECIFIED SNOMED Code(s): 711167031 Comment: - Improving, likely due to infection - No signs of bleeding. - Also associated with acute on chronic lymphopenia, also improving - Monitor. (6) Congenital heart disease Current Visit: No Status: Acute (7) DVT prophylaxis Current Visit: No Status: Acute Code(s): BHI0929 - SNOMED Code(s): 438780238 Comment: - SCDs only in the setting of thrombocytopenia (8) Full code status Current Visit: No Status: Acute Code(s): Z78.9 - OTHER SPECIFIED HEALTH STATUS SNOMED Code(s): 695841349 Comment: Status and Disposition: Observation. Anticipate d/c home when medically stable. Pending TERRIE and determination of antibiotic duration.
[2019-03-11] MEDS: CMC:Dorzolamide/Timolol OPTH (NF) 10 ML BOT BOTH EYES SCH (20:16)
[2019-03-12] MEDS: NS 0.9% 1000 ML** 1,000 ML IV SCH ×2 (00:18→23:22)
[2019-03-12 05:57] LABS: ABS Lymphocytes 0.4 10^3/ul (1.0-4.8); ABS Monocytes 1.2 10^3/ul (0-0.8); Eosinophil % 0.3 %; Hematocrit 33 % (42-52); Hemoglobin 11.6 g/dL (14.0-18.0); Lymphocyte % 3.8 %; Mean Corpuscular HGB Conc 35 g/dL (31-36); Mean Corpuscular Hemoglobin 32 pg (27-31); Mean Corpuscular Volume 92 fL (80-94); Mean Platelet Volume 10.3 fL (7.4-10.4); Platelet Count 70 10^3/uL (150-450); Red Blood Count 3.63 10^6 /uL (4.18-5.48); Red Cell Distribution Width 15 % (10-15); White Blood Count 10.6 10^3/uL (3.5-10.8)
[2019-03-12 06:11] LABS: BUN/Creatinine Ratio 15.6 (8-20); Calcium 7.3 mg/dL (8.6-10.3); EGFR African American 123.5 (>60); Magnesium 1.7 mg/dL (1.9-2.7); Potassium 3.2 mmol/L (3.5-5.0)
[2019-03-12] MEDS: ZOSYN 3.375 GM Q8H per EXTENDED INFUSION IVPB SCH ×2 (06:13)
[2019-03-12] MEDS ORDERED: Magnesium Sulfate 2 GM IV* 2 GM/50 ML BAG IVPB ONE (06:59)
[2019-03-12] MEDS ORDERED: ceFAZolin 2 GM PREMIX in ORs 2 GM/50 ML BAG IVPB SCH (09:00)
--- NOTE | 2019-03-12 09:02 | PN ---
Subjective Date of Service: 03/12/19 Interval History: Patient is feeling better today. Patient had large BMs and has had a resolution to his abdominal pain. Patient states that his only pain is in his low back and hip. Patient is quite hungry. Patient denies F/C, N/V, CP, SOB, dizziness, or other pain. Patient's mobility is somewhat limited by pain. Family History: Unchanged from Admission Social History: Unchanged from Admission Past Medical History: Unchanged from Admission Objective Active Medications: Acetaminophen (Tylenol Tab*) 650 mg PO Q4H PRN PRN Reason: MILD PAIN or TEMP > 100.4 Last Admin: 03/11/19 22:46 Dose: 650 mg Aspirin (Aspirin Ec Tab*) 81 mg PO DAILY [facility] Last Admin: 03/11/19 08:20 Dose: 81 mg Dorzolamide/Timolol (Cosopt (Nf)) 1 drop BOTH EYES BID [facility]; Protocol Last Admin: 03/11/19 20:16 Dose: 1 drop Sodium Chloride (Ns 0.9% 1000 Ml) 1,000 mls @ 75 mls/hr IV PER RATE [facility] Last Admin: 03/12/19 00:18 Dose: 75 mls/hr Potassium Chloride (Potassium Chloride 20 Meq/100 Ml Ivpremix*) 20 meq in 100 mls @ 50 mls/hr IV Q2H [facility] Stop: 03/12/19 12:59 Cefazolin Sodium/Dextrose (Kefzol 2 Gm Premix In Ors(*)) 2 gm in 50 mls @ 100 mls/hr IVPB Q8H [facility] Levetiracetam (Keppra Liq*) 1,500 mg PO BID [facility] Last Admin: 03/11/19 20:16 Dose: 1,500 mg Ondansetron HCl (Zofran Inj*) 4 mg IV Q6H PRN PRN Reason: NAUSEA Last Admin: 03/10/19 21:02 Dose: 4 mg Oxycodone HCl (Roxycodone Tab*) 5 mg PO Q6H PRN PRN Reason: PAIN - SEVERE Last Admin: 03/11/19 11:31 Dose: 5 mg Polyethylene Glycol/Electrolytes (Miralax*) 17 gm PO DAILY PRN PRN Reason: CONSTIPATION Last Admin: 03/11/19 11:27 Dose: 17 gm Prochlorperazine Edisylate (Compazine Inj*) 10 mg IV Q6H PRN PRN Reason: NAUSEA/VOMITING Last Admin: 03/09/19 12:08 Dose: 10 mg Senna (Senokot 8.6 Mg Tab*) 1 tab PO DAILY PRN PRN Reason: CONSTIPATION Last Admin: 03/10/19 09:03 Dose: 1 tab Vital Signs - 8 hr 03/12/19 03/12/19 03:00 03:13 Temperature 98.0 F Pulse Rate 81 Respiratory 18 20 Rate Blood Pressure 102/66 (mmHg) O2 Sat by Pulse 96 Oximetry Oxygen Devices in Use Now: None Appearance: Patient is a 64yo male who appears stated age, has had previous maxillary surgery, and is sitting in the bed in NAD. Eyes: No Scleral Icterus, PERRLA Ears/Nose/Mouth/Throat: NL Teeth, Lips, Gums, Clear Oropharnyx, Mucous Membranes Moist Neck: NL Appearance and Movements; NL JVP, Trachea Midline Respiratory: Symmetrical Chest Expansion and Respiratory Effort, Clear to Auscultation Cardiovascular: NL Sounds; No Murmurs; No JVD, RRR, No Edema Abdominal: No Hepatosplenomegaly, - - Normoactive bowel sounds. Mildly distended. Non-Tender Lymphatic: No Cervical Adenopathy Extremities: No Edema, No Clubbing, Cyanosis, - - Pain with palpation over left hip. Skin: No Rash or Ulcers, No Nodules or Sclerosis Neurological: Alert and Oriented x 3, NL Sensation, NL Muscle Strength and Tone , - - CN II-XII intact. Result Diagrams: 03/12/19 05:25 03/12/19 05:25 Microbiology and Other Data: Microbiology 03/08/19 10:07 Urine Culture - Preliminary Urine Staphylococcus Aureus Assess/Plan/Problems-Billing Assessment: Mr. 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 - Patient Problems (1) MSSA bacteremia Current Visit: Yes Status: Acute Code(s): R78.81 - BACTEREMIA SNOMED Code( s): 130116357 Comment: - Found on Blood Culture after fever on 03/10. 4/4 Bottles - Likely urinary source. ? Prostatitis, no prostate swelling or significant tenderness on exam. - Switch Zosyn to High Dose Cefazolin - ? Spinal infection vs Hip infection, appreciate Ortho input, low suspicion for septic hip, check spine MRI when available. - Echo to assess for endocarditis, no systemic signs of septic embolization - Pacer in place, may need TERRIE. - ID consult when available. (2) SIRS (systemic inflammatory response syndrome) Current Visit: Yes Status: Acute Code(s): R65.10 - SIRS OF NON-INFECTIOUS ORIGIN W/O ACUTE ORGAN DYSFUNCTION SNOMED Code(s): 870133909 Comment: - Met criteria with fever, tachycardia, tachypnea - Due to Bacteremia of likely urinary source, unclear why no pyuria. - On Antibiotics, stop fluids - Continue Tylenol (3) Seizure disorder Current Visit: Yes Status: Acute Code(s): G40.909 - EPILEPSY, UNSP, NOT INTRACTABLE, WITHOUT STATUS EPILEPTICUS SNOMED Code(s): 467782215 Comment: - Continue Keppra (4) Subclavian steal syndrome Current Visit: Yes Status: Acute Code(s): G45.8 - OTH TRANSIENT CEREBRAL ISCHEMIC ATTACKS AND RELATED SYND SNOMED Code(s): 10677540 Comment: - Blood pressures only accurate on RUE (5) Thrombocytopenia Current Visit: Yes Status: Acute Code(s): D69.6 - THROMBOCYTOPENIA, UNSPECIFIED SNOMED Code(s): 780298619 Comment: - Improving, likely due to infection - No signs of bleeding. - Also associated with acute on chronic lymphopenia, also improving - Monitor. (6) Congenital heart disease Current Visit: No Status: Acute (7) DVT prophylaxis Current Visit: No Status: Acute Code(s): RIF0187 - SNOMED Code(s): 494288560 Comment: - SCDs only in the setting of thrombocytopenia - Start Chemical Prophylaxis when above 50 for 2 days. (8) Full code status Current Visit: No Status: Acute Code(s): Z78.9 - OTHER SPECIFIED HEALTH STATUS SNOMED Code(s): 673688281 Comment: Status and Disposition: Observation. Anticipate d/c home when medically stable. Pending TTE and determination of antibiotic duration.
[2019-03-12] MEDS: CMC:Dorzolamide/Timolol OPTH (NF) 10 ML BOT BOTH EYES SCH ×2 (09:15→21:04)
[2019-03-12] MEDS: levETIRAcetam LIQ* 500 MG/5 ML UDC PO SCH ×2 (09:15→21:04)
[2019-03-12] MEDS: Aspirin EC TAB* 81 MG TAB.EC PO SCH (09:15)
[2019-03-12] MEDS: Acetaminophen TAB* 325 MG PO PRN ×2 (10:32→21:03)
[2019-03-12] MEDS: ceFAZolin 2 GM in NS PREMIX(*) 2 GM/100 ML BAG IVPB SCH ×2 (10:33→18:37)
[2019-03-12] MEDS: KCL 20 MEQ/100 ML IVPREMIX* 20 MEQ/100 ML BAG IV SCH ×3 (11:31→16:02)
[2019-03-12] MEDS ORDERED: Ibuprofen TAB* 400 MG PO ONE (11:40)
--- NOTE | 2019-03-12 11:51 | ECHO ---
*[facility]* [place] [address] Fax #: [phone] Transthoracic Echocardiogram Patient: Figueroa Goodman : 1955 Study Date: 03/12/2019 Age: 64 Gender: M HR: 88 bpm Height: 66 in /167.6 cm BSA: 1.64 m^2 Weight: 124.7 lb /56.7 kg BMI: 20.2 kg/m^2 *Headlight Adjuster: Elvia Ring [facility] *Referring Physician: * Hector Cardenas *Reading Physician: * Ernesto Mcdonald MD Indications: Bacteremia. History: 3degrees AV block. Congenital syndrome. Subclavian steal syndrome. Labs, prior tests, procedures, and surgery: Permanent pacemaker system implantation. Conclusions Summary: - Left ventricle: The cavity size is normal. Wall thickness is normal. Systolic function is normal. The estimated ejection fraction is 50-55%. Wall motion is normal; there are no regional wall motion abnormalities. - Normal cardiac chamber sizes. - Aortic valve: There is mild to moderate regurgitation. - Aortic root: The aortic root is mildly dilated. - No intra-cardiac vegetation seen on this transthoracic echocardiogram. - Since the prior transthoracic echocardiogram completed 07/05/17, pertinent change is prior normal aortic root size described. Study data: Transthoracic echocardiogram. Procedure: Transthoracic echocardiography was performed. Image quality was fair. Complete 2D, spectral Doppler, and color flow Doppler. Location: Bedside. Patient status: Inpatient. Patient room number: 403. Rhythm: Normal sinus rhythm. Findings Left ventricle: The cavity size is normal. Wall thickness is normal. Systolic function is normal. The estimated ejection fraction is 50-55%. Wall motion is normal; there are no regional wall motion abnormalities. There is no consistent Doppler evidence of clinically significant diastolic dysfunction. Right ventricle: The cavity size is normal. Systolic function is normal. Left atrium: The atrium is normal in size. Right atrium: The atrium is normal in size. Mitral valve: The leaflets are mildly thickened. There is no evidence of a vegetation. There is trace to mild regurgitation. Aortic valve: The leaflets are mildly thickened and [place] aortic valve appears trileaflet. There is no evidence of stenosis. There is mild to moderate regurgitation. Tricuspid valve: The leaflets are normal thickness. There is no evidence of a vegetation. There is trace regurgitation. Unable to reliably estimate the pulmonary artery systolic pressure. Pulmonic valve: The leaflets are normal thickness. There is no evidence of a vegetation. There is no evidence of stenosis. There is trace regurgitation. Aorta: Aortic root: The aortic root is mildly dilated. Aortic arch: The aortic arch is appears normal. Pericardium: There is no significant pericardial effusion. Systemic veins: Inferior vena cava: The vessel is normal in size. There is (>= 50%) respiratory change in the IVC dimension. Pulmonary veins: The flow of the pulmonary veins appears normal. Measurements Left ventricle Value Ref Aortic valve continued Value Ref MARVIN, LAX 4.7 cm 4.2 - 5.8 VTI, S 20.7 cm ---- ESD, LAX 4.0 cm 2.5 - 4.0 Mean grad, S 3.0 mm Hg ---- FS, LAX (L) 16 % 25 - 43 Peak grad, S 6.0 mm Hg ---- PW, ED, LAX 1.0 cm 0.6 - 1.0 AR peak v 4.14 m/sec ---- EF (L) 34 % 52 - 72 AR PHT 451 ms ---- E', lat evelio, TDI (L) 7.2 cm/sec >=10.0 AR peak grad 69 mm Hg ---- E/e', lat evelio, 9 TDI Mitral valve Value Ref E', med evelio, TDI 8.0 cm/sec >=7.0 Peak E 0.67 m/sec ---- E/e', med evelio, 8 Peak A 0.65 m/sec -- -- TDI Decel time 137 ms ---- E', avg, TDI 7.6 cm/sec Peak E/A ratio 1 -- -- E/e', avg, TDI 9 <=14 Pulmonic valve Value Ref LVOT Value Ref Peak v, S 0.7 m/sec ---- Peak elda, S 0.99 m/sec Peak grad, S 2.0 mm Hg ---- Mean grad, S 2 mm Hg Aortic root Value Ref Ventricular septum Value Ref Root diam 3.6 cm <3.9 IVS, ED 1.0 cm 0.6 - 1.0 Root max diam, ED 3.6 cm <3.9 Right ventricle Value Ref Aortic arch Value Ref MARVIN, LAX 2.5 cm Arch diam 3.0 cm ---- MARVIN minor ax, A4C 3.4 cm 1.9 - 3.5 mid Decending aorta Value Ref Delia peak elda 0.89 m/sec ---- Left atrium Value Ref AP dim, ES (L) 2.80 cm 3.00 - Inferior vena cava Value Ref 4.00 Diam 1.6 cm ---- ML dim, A4C 4.3 cm Pulmonary veins Value Ref Right atrium Value Ref Peak v, S 0.65 m/sec ---- SI dim, ES 4.7 cm 3.4 - 5.3 Peak v, D 0.57 m/sec ---- ML dim, ES, A4C 4.0 cm 2.6 - 4.4 Peak S/D ratio 1.1 ---- Estimated RAP 8 mm Hg A rev duration 71 ms ---- Aortic valve Value Ref Evelio diam, ED 2.1 cm Peak v, S 1.23 m/sec Legend: (L) and (H) heraclio values outside specified reference range. Prepared and electronically signed by Ernesto Mcdonald MD 03/12/2019 11:51
[2019-03-12] MEDS ORDERED: KCL 20 MEQ/100 ML IVPREMIX* 20 MEQ/100 ML BAG ONE (16:00)
[2019-03-13] MEDS: ceFAZolin 2 GM in NS PREMIX(*) 2 GM/100 ML BAG IVPB SCH ×3 (01:46→17:17)
[2019-03-13] MEDS: Aspirin EC TAB* 81 MG TAB.EC PO SCH (08:09)
[2019-03-13] MEDS: levETIRAcetam LIQ* 500 MG/5 ML UDC PO SCH ×2 (08:12→20:43)
[2019-03-13] MEDS: CMC:Dorzolamide/Timolol OPTH (NF) 10 ML BOT BOTH EYES SCH ×2 (08:12→20:43)
[2019-03-13] MEDS: Acetaminophen TAB* 325 MG PO PRN ×2 (08:18→17:39)
[2019-03-13 09:33] LABS: ABS Basophils 0.1 10^3/ul (0-0.2); ABS Lymphocytes 0.4 10^3/ul (1.0-4.8); ABS Monocytes 0.9 10^3/ul (0-0.8); ABS Neutrophils 10.1 10^3/ul (1.5-7.7); Eosinophil % 0.2 %; Hematocrit 38 % (42-52); Hemoglobin 13.3 g/dL (14.0-18.0); Lymphocyte % 3.4 %; Mean Corpuscular HGB Conc 35 g/dL (31-36); Mean Corpuscular Hemoglobin 32 pg (27-31); Mean Corpuscular Volume 91 fL (80-94); Mean Platelet Volume 9.8 fL (7.4-10.4); Platelet Count 116 10^3/uL (150-450); Red Blood Count 4.18 10^6 /uL (4.18-5.48); Red Cell Distribution Width 15 % (10-15); White Blood Count 11.4 10^3/uL (3.5-10.8)
[2019-03-13 09:51] LABS: BUN/Creatinine Ratio 19.2 (8-20); C Reactive Protein 220.39 mg/L (<8.01); Calcium 7.6 mg/dL (8.6-10.3); EGFR African American 131.3 (>60); EGFR Non-African American 108.5 (>60); Potassium 3.7 mmol/L (3.5-5.0)
--- NOTE | 2019-03-13 11:23 | PN ---
Progress Note - Progress Note Date of Service: 03/13/19 SOAP: Subjective: []Pt seen at bedside. He reports continued BL low back, BL lower quadrant abdominal pain and hip pain. + elevated WBC and CRP, he is afebrile. Objective: []Gen: Nontoxic appearing Severe Left SI joint tenderness, severe Lumbar paraspinal tenderness Left greater than right, no erythema or fluctuance. No midline tenderness. + BL pain with SLR BL Hips and thighs with skin intact, well healed incisions, no erythema,+ mild diffuse tenderness without point tenderness and without fluctuance. Able to f/e hips without pain in the hips, though pain in the lower back bilaterally. No erythema, no effusion, no pain with BL knee, ankle, digit ROM Assessment: []Low suspicion for septic arthritis of his hips due to painless ROM though concern remains for infection of lumber spine/ si joint/ psoas Plan: []MRI R hip, L and T spine pending Continue IV abx per ID- growing MSSA, on cefazolin Will continue to follow. Please alert ortho with any concerns or new features Vital Signs Temp 98.8 F 03/13/19 07:36 Pulse 85 03/13/19 07:36 Resp 22 03/13/19 07:36 BP 104/59 03/13/19 07:36 Pulse Ox 98 03/13/19 07:36 Intake & Output 03/12/19 03/13/19 03/13/19 18:59 06:59 18:59 Intake Total 562 815 Output Total 1167 Balance -605 815 Intake: IV Fluids 290 576 NS 290 576 IVPB 212 239 Magnesium 55 NS 239 cefazolin 55 potassium 102 Oral 60 0 Output: Urine 1050 Post Void Residual 117 Other: Estimated Stool Amount Large Laboratory Last Values WBC 11.4 10^3/uL (3.5-10.8) H 03/13/19 09:18 RBC 4.18 10^6 /uL (4.18-5.48) 03/13/19 09:18 Hgb 13.3 g/dL (14.0-18.0) L 03/13/19 09:18 Hct 38 % (42-52) L 03/13/19 09:18 MCV 91 fL (80-94) 03/13/19 09:18 MCH 32 pg (27-31) H 03/13/19 09:18 MCHC 35 g/dL (31-36) 03/13/19 09:18 RDW 15 % (10-15) 03/13/19 09:18 Plt Count 116 10^3/uL (150-450) L 03/13/19 09:18 MPV 9.8 fL (7.4-10.4) 03/13/19 09:18 Neut % (Auto) 88.0 % 03/13/19 09:18 Lymph % (Auto) 3.4 % 03/13/19 09:18 [place] % (Auto) 7.8 % 03/13/19 09:18 Eos % (Auto) 0.2 % 03/13/19 09:18 Baso % (Auto) 0.6 % 03/13/19 09:18 Absolute Neuts (auto) 10.1 10^3/ul (1.5-7.7) H 03/13/19 09:18 Absolute Lymphs (auto) 0.4 10^3/ul (1.0-4.8) L 03/13/19 09:18 Absolute Monos (auto) 0.9 10^3/ul (0-0.8) H 03/13/19 09:18 Absolute Eos (auto) 0.0 10^3/ul (0-0.6) 03/13/19 09:18 Absolute Basos (auto) 0.1 10^3/ul (0-0.2) 03/13/19 09:18 Absolute Nucleated RBC 0.0 10^3/ul 03/13/19 09:18 Nucleated RBC % 0.0 03/13/19 09:18 Hem Pathologist Commnt 03/07/19 21:28 Sodium 139 mmol/L (135-145) 03/13/19 09:18 Potassium 3.7 mmol/L (3.5-5.0) 03/13/19 09:18 Chloride 110 mmol/L (101-111) 03/13/19 09:18 Carbon Dioxide 22 mmol/L (22-32) 03/13/19 09:18 Anion Gap 7 mmol/L (2-11) 03/13/19 09:18 BUN 14 mg/dL (6-24) 03/13/19 09:18 Creatinine 0.73 mg/dL (0.67-1.17) 03/13/19 09:18 Est GFR ( Amer) 131.3 (>60) 03/13/19 09:18 Est GFR (Non-Af Amer) 108.5 (>60) 03/13/19 09:18 BUN/Creatinine Ratio 19.2 (8-20) 03/13/19 09:18 Glucose 154 mg/dL (70-100) H 03/13/19 09:18 Lactic Acid 1.9 mmol/L (0.5-2.0) 03/07/19 21:28 Calcium 7.6 mg/dL (8.6-10.3) L 03/13/19 09:18 Magnesium 2.0 mg/dL (1.9-2.7) 03/13/19 09:18 Total Bilirubin 0.70 mg/dL (0.2-1.0) 03/07/19 21:28 AST 24 U/L (13-39) 03/07/19 21:28 ALT 14 U/L (7-52) 03/07/19 21:28 Alkaline Phosphatase 61 U/L (34-104) 03/07/19 21:28 C-Reactive Protein 220.39 mg/L (<8.01) H 03/13/19 09:18 Total Protein 6.8 g/dL (6.4-8.9) 03/07/19 21:28 Albumin 3.4 g/dL (3.2-5.2) 03/07/19 21:28 Globulin 3.4 g/dL (2-4) 03/07/19 21:28 Albumin/Globulin Ratio 1.0 (1-3) 03/07/19 21:28 Lipase 21 U/L (11.0-82.0) 03/07/19 21:28 Urine Color Yellow 03/08/19 10:07 Urine Appearance Clear 03/08/19 10:07 Urine pH 6.0 (5-9) 03/08/19 10:07 Ur Specific [place] 1.032 (1.010-1.030) H 03/08/19 10:07 Urine Protein 1+(30 mg/dl) (Negative) A 03/08/19 10:07 Urine Ketones Negative (Negative) 03/08/19 10:07 Urine Blood 2+ (Negative) A 03/08/19 10:07 Urine Nitrate Negative (Negative) 03/08/19 10:07 Urine Bilirubin Negative (Negative) 03/08/19 10:07 Urine Urobilinogen Negative (Negative) 03/08/19 10:07 Ur Leukocyte Esterase Negative (Negative) 03/08/19 10:07 Urine WBC (Auto) Trace(0-5/hpf) (Absent) 03/08/19 10:07 Urine RBC (Auto) 1+(3-5/hpf) (Absent) A 03/08/19 10:07 Urine Bacteria Absent (Absent) 03/08/19 10:07 Urine Glucose Negative (Negative) 03/08/19 10:07 Influenza A (Rapid) Negative (Negative) 03/10/19 18:05 Influenza B (Rapid) Negative (Negative) 03/10/19 18:05
--- NOTE | 2019-03-13 11:45 | CONS ---
CONSULTATION REPORT: DATE OF CONSULT: 03/13/19 REQUESTING PHYSICIAN: JANEEN Jack CONSULTING SERVICE: Infectious Disease. REASON FOR CONSULTATION: Staphylococcal bacteremia. IMPRESSION: 1. Methicillin-sensitive staphylococcus aureus bacteremia. He does have Staphylococcus aureus in the urine which I suspect is secondary to the bacteremia. Differential for primary source includes infective endocarditis. He does have a pacemaker, so cardiac device infection is on the differential. He has low back and right SI and buttock tenderness on exam. Pain with weightbearing. He could have a lumbar spine infection, septic sacroiliac joint , septic arthritis, though his log roll on the right is not particularly impressive, it is still a consideration. 2. Presence of pacemaker. 3. Congenital heart defect, repaired as an infant. RECOMMENDATIONS: Continue Ancef 2 g IV every 8 hours. Recheck the blood cultures to ensure clearance. Obtain a transesophageal echocardiogram. Reportedly, Radiology said he cannot have an MRI because of the pacemaker. Please check with Radiology to see what the specifics are of this device and if it is something that they are able to do here per their protocol. HISTORY OF PRESENT ILLNESS: This is a 64-year-old man with developmental delay admitted with diarrhea and fever, found to have staphylococcal bacteremia. He was initially on vancomycin, now on Ancef which he is tolerating well. He had a low- grade fever overnight. He is having some liquid stools a couple times a day with some epigastric discomfort. That had brought him into the hospital. He has had some right buttock and right low back pain for couple days, worse with standing and weightbearing. He does not note it with moving his hip, but his legs overall feel a bit weak. He does not have any other joint pain. No redness at his pacemaker site. Here, he has had a CT of the abdomen and pelvis. It showed hydronephrosis on the left which is chronic, small bilateral pleural effusions. No bowel obstruction. He was seen by Orthopedics who felt his hips were okay. He had a transthoracic echocardiogram that is unrevealing. Chest x-ray showed interstitial edema. PAST MEDICAL HISTORY: 1. Congenital heart defect, status post repair as an . 2. Developmental delay. 3. Seizure disorder. 4. Complete heart block, status post pacemaker placement. 5. Subclavian steal syndrome. 6. Maxillary sinus squamous cell carcinoma, treated with surgery and radiation therapy. MEDICATIONS: 1. Ancef 2 g every 8 hours. 2. Tylenol. 3. Aspirin. 4. Ibuprofen. 5. Keppra. 6. Oxycodone as needed. 7. Polyethylene glycol as needed. 8. Senna as needed. ALLERGIES: No known drug allergies. FAMILY HISTORY: No recurrent infections. Mom had breast cancer. Dad had small cell lung cancer. SOCIAL HISTORY: Lives with sister. Nonsmoker. No injection drugs. REVIEW OF SYSTEMS: All negative except as noted above in the history of present illness on 14-point review. PHYSICAL EXAM: Vital Signs: Temperature is 37, heart rate 70, respiratory rate 16, blood pressure 120/43, oxygen saturation 100% on room air. In general , he is awake, not in distress. Neurologic: He is oriented x3, follows all commands. Strength is 5/5 in the quadriceps, tibialis anterior, gastrocnemius bilaterally. HEENT: There is no conjunctival hemorrhage. Oropharynx without lesions. Neck is supple without mass. Heart is regular rate and rhythm without murmurs, rubs, or gallops. The left chest pacemaker site is not tender or erythematous. Lungs are clear to auscultation bilaterally. Abdomen: Soft, mildly distended. Bowel sounds present. Skin: There is no rash or splinter hemorrhage. Musculoskeletal: There is right SI joint tenderness. There is no spine tenderness to palpation. There is no joint synovitis. There is no positive log roll in either hip. DIAGNOSTIC STUDIES/LAB DATA: White blood cell count 11, hemoglobin 13, platelets 116. Creatinine 0.7. CRP 220, down from 270. Influenza PCR negative. Please see impressions and recommendations outlined above that I have discussed with JANEEN Jack. Thank you for asking me to see Mr. Goodman in consultation. [id number]/[facility] #: [id number] DI[place]OND
--- NOTE | 2019-03-13 13:25 | PN ---
Subjective Date of Service: 03/13/19 Interval History: Patient has persistent pain in his hip and back. Patient has improved ambulation status. Patient denies CP, SOB, F/C, N/V, abdominal pain, dysuria, or other pain. Family History: Unchanged from Admission Social History: Unchanged from Admission Past Medical History: Unchanged from Admission Objective Active Medications: Acetaminophen (Tylenol Tab*) 650 mg PO Q4H PRN PRN Reason: MILD PAIN or TEMP > 100.4 Last Admin: 03/13/19 08:18 Dose: 650 mg Aspirin (Aspirin Ec Tab*) 81 mg PO DAILY [facility] Last Admin: 03/13/19 08:09 Dose: 81 mg Dorzolamide/Timolol (Cosopt (Nf)) 1 drop BOTH EYES BID [facility]; Protocol Last Admin: 03/13/19 08:12 Dose: 1 drop Sodium Chloride (Ns 0.9% 1000 Ml) 1,000 mls @ 75 mls/hr IV PER RATE [facility] Last Admin: 03/12/19 23:22 Dose: 75 mls/hr Cefazolin Sodium (Kefzol 2 Gm In Ns Premix(*)) 2 gm in 100 mls @ 200 mls/hr IVPB Q8H [facility] Last Admin: 03/13/19 08:23 Dose: 200 mls/hr Levetiracetam (Keppra Liq*) 1,500 mg PO BID [facility] Last Admin: 03/13/19 08:12 Dose: 1,500 mg Ondansetron HCl (Zofran Inj*) 4 mg IV Q6H PRN PRN Reason: NAUSEA Last Admin: 03/10/19 21:02 Dose: 4 mg Oxycodone HCl (Roxycodone Tab*) 5 mg PO Q6H PRN PRN Reason: PAIN - SEVERE Last Admin: 03/11/19 11:31 Dose: 5 mg Polyethylene Glycol/Electrolytes (Miralax*) 17 gm PO DAILY PRN PRN Reason: CONSTIPATION Last Admin: 03/11/19 11:27 Dose: 17 gm Prochlorperazine Edisylate (Compazine Inj*) 10 mg IV Q6H PRN PRN Reason: NAUSEA/VOMITING Last Admin: 03/09/19 12:08 Dose: 10 mg Senna (Senokot 8.6 Mg Tab*) 1 tab PO DAILY PRN PRN Reason: CONSTIPATION Last Admin: 03/10/19 09:03 Dose: 1 tab Vital Signs - 8 hr 03/13/19 03/13/19 07:36 11:08 Temperature 98.8 F 97.7 F Pulse Rate 85 99 Respiratory 22 24 Rate Blood Pressure 104/59 118/65 (mmHg) O2 Sat by Pulse 98 97 Oximetry Oxygen Devices in Use Now: None Appearance: Patient is a 64yo male who appears stated age, had mandibular surgery, and is sitting in the bed in NAD. Eyes: No Scleral Icterus, PERRLA Ears/Nose/Mouth/Throat: NL Teeth, Lips, Gums, Clear Oropharnyx, Mucous Membranes Moist Neck: NL Appearance and Movements; NL JVP, Trachea Midline Respiratory: Symmetrical Chest Expansion and Respiratory Effort, Clear to Auscultation Cardiovascular: NL Sounds; No Murmurs; No JVD, RRR, No Edema Abdominal: NL Sounds; No Tenderness; No Distention, No Hepatosplenomegaly Lymphatic: No Cervical Adenopathy Extremities: No Edema, No Clubbing, Cyanosis Skin: No Nodules or Sclerosis Neurological: Alert and Oriented x 3, - - CN II-XII intact. Result Diagrams: 03/13/19 09:18 03/13/19 09:18 Microbiology and Other Data: Microbiology 03/08/19 10:07 Urine Culture - Preliminary Urine Staphylococcus Aureus Assess/Plan/Problems-Billing Assessment: Mr. 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 - Patient Problems (1) MSSA bacteremia Current Visit: Yes Status: Acute Code(s): R78.81 - BACTEREMIA SNOMED Code( s): 664837451 Comment: - Found on Blood Culture after fever on 03/10. 07/14 Bottles - Unclear source, - Switch Zosyn to High Dose Cefazolin - ? Spinal infection vs Hip infection, appreciate Ortho input, low suspicion for septic hip, check spine MRI when available. - TERRIE tomorrow. - Pacer in place - ID consult appreciated. (2) SIRS (systemic inflammatory response syndrome) Current Visit: Yes Status: Acute Code(s): R65.10 - SIRS OF NON-INFECTIOUS ORIGIN W/O ACUTE ORGAN DYSFUNCTION SNOMED Code(s): 572977585 Comment: - Sepsis - Met criteria with fever, tachycardia, tachypnea - Due to Bacteremia of likely urinary source, unclear why no pyuria. - On Antibiotics, stop fluids - Continue Tylenol (3) Seizure disorder Current Visit: Yes Status: Acute Code(s): G40.909 - EPILEPSY, UNSP, NOT INTRACTABLE, WITHOUT STATUS EPILEPTICUS SNOMED Code(s): 779402750 Comment: - Continue Keppra (4) Subclavian steal syndrome Current Visit: Yes Status: Acute Code(s): G45.8 - OTH TRANSIENT CEREBRAL ISCHEMIC ATTACKS AND RELATED SYND SNOMED Code(s): 68685767 Comment: - Blood pressures only accurate on RUE (5) Thrombocytopenia Current Visit: Yes Status: Acute Code(s): D69.6 - THROMBOCYTOPENIA, UNSPECIFIED SNOMED Code(s): 524768458 Comment: - Improving, likely due to infection - No signs of bleeding. - Also associated with acute on chronic lymphopenia, also improving - Monitor. (6) Congenital heart disease Current Visit: No Status: Acute (7) DVT prophylaxis Current Visit: No Status: Acute Code(s): URC2284 - SNOMED Code(s): 337315970 Comment: - Start Heparin Today (8) Full code status Current Visit: No Status: Acute Code(s): Z78.9 - OTHER SPECIFIED HEALTH STATUS SNOMED Code(s): 686984343 Comment: Status and Disposition: Observation. Anticipate d/c home when medically stable. Pending plan for antibiotic duration
[2019-03-13] MEDS ORDERED: Bismuth Subsalicylate* 524 MG/30 ML BTL PO PRN (13:56)
[2019-03-13] MEDS: Enoxaparin(*) 40 MG/0.4 ML SYR SUBCUT SCH (14:28)
[2019-03-13] MEDS: Ondansetron INJ* 2 MG/ML VIAL IV PRN (17:17)
[2019-03-13] MEDS ORDERED: Ibuprofen TAB* 400 MG PO ONE (17:34)
[2019-03-13] MEDS ORDERED: NS 0.9% 1000 ML** 1,000 ML IV ONE (17:38)
[2019-03-13 17:48] LABS: ABS Basophils 0.1 10^3/ul (0-0.2); ABS Lymphocytes 0.5 10^3/ul (1.0-4.8); ABS Monocytes 0.8 10^3/ul (0-0.8); ABS Neutrophils 8.3 10^3/ul (1.5-7.7); Hematocrit 38 % (42-52); Hemoglobin 13.3 g/dL (14.0-18.0); Lymphocyte % 5.2 %; Mean Corpuscular HGB Conc 35 g/dL (31-36); Mean Corpuscular Hemoglobin 32 pg (27-31); Mean Corpuscular Volume 91 fL (80-94); Mean Platelet Volume 9.6 fL (7.4-10.4); Platelet Count 117 10^3/uL (150-450); Red Blood Count 4.17 10^6 /uL (4.18-5.48); Red Cell Distribution Width 16 % (10-15); White Blood Count 9.7 10^3/uL (3.5-10.8)
[2019-03-13 18:14] LABS: Albumin 2.5 g/dL (3.2-5.2); Albumin/Globulin Ratio 0.8 (1-3); BUN/Creatinine Ratio 16.9 (8-20); Calcium 7.5 mg/dL (8.6-10.3); EGFR African American 113.2 (>60); EGFR Non-African American 93.6 (>60); Potassium 4.2 mmol/L (3.5-5.0); Total Bilirubin 0.7 mg/dL (0.2-1.0); Total Protein 5.5 g/dL (6.4-8.9)
[2019-03-13] MEDS ORDERED: NS 0.9% 500 ML* 500 ML IV ONE (18:35)
--- NOTE | 2019-03-13 18:53 | PN ---
Hospitalist Progress Note Date of Service: 03/13/19 Paged for change in condition. Patient complaining of being very cold and having tremors. Patient coughed up a small amount of blood, but was also noted to have epistaxis. Patient states his back pain has improved from earlier, but that he otherwise feels poorly. Patient denies abdominal pain, N/V, CP, SOB. Patient has only an occasional cough. Patient given tylenol and ibuprofen and a bolus. Initial Lung and abdominal exam benign. Heart tachycardic. Distal fingertips warm but pale. 30mins after tylenol and ibuprofen, patient reexamined and subjective chills and apparent rigors had resolved. Patient states he feels much better. Lactic Resulted at 3.3. Bolus increased to 30ml/kg and will reassess.
[2019-03-13] MEDS: NS 0.9% 1000 ML** 1,000 ML IV SCH (20:40)
[2019-03-13] MEDS: PROCHLORPERAZINE INJ 5 MG/ML 2 ML VIAL IV PRN (20:43)
--- NOTE | 2019-03-13 23:32 | PN ---
Sepsis Event Evaluation Date of Evaluation: 03/13/19 Time of Evaluation: 23:00 Current Stage of Sepsis: Sepsis Vital Signs - Last 12 Hours: Vital Signs - 12 hr Temp Pulse Resp BP Pulse Ox 03/13/19 18:23 102.7 F 108 27 117/56 90 03/13/19 17:30 100.8 F 136 34 153/80 93 03/13/19 15:07 98.1 F 95 16 145/57 97 Lactic Acid: 03/07/19 03/13/19 03/13/19 21:28 17:40 20:17 Lactic Acid 1.9 3.3 H* 1.3 - Cardiopulmonary Exam Capillary Refill: Immediate Respiratory: Symmetrical Chest Expansion and Respiratory Effort Cardiovascular: NL Sounds; No Murmurs; No JVD - Peripheral Pulse Exam Radial Pulses: Bilateral Normal - Skin Exam Skin Exam: Normal Turgor - [place] Coma Scale Best Eye Response: 4 - Spontaneous Best Motor Response: 6 - Obeys Commands Best Verbal Response: 5 - Oriented Coma Scale Total: 15 Assess/Plan/Problems-Billing Assessment: Mr. 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 Lactic acid improved. Patient denies any dizziness or chills for now. Status and Disposition: Continue current ABx.
[2019-03-14] MEDS: ceFAZolin 2 GM in NS PREMIX(*) 2 GM/100 ML BAG IVPB SCH ×2 (01:40→10:25)
--- NOTE | 2019-03-14 07:33 | PN ---
Subjective Date of Service: 03/14/19 Interval History: Mr. Goodman continues to have pain in the low back, R hip. He c/o decreased ROM in R hip, as well. He denies cough, fever, chills, abd pain, n/v/d. He has no other complaints today. Family History: Unchanged from Admission Social History: Unchanged from Admission Past Medical History: Unchanged from Admission Objective Active Medications: Acetaminophen (Tylenol Tab*) 650 mg PO Q4H PRN PRN Reason: MILD PAIN or TEMP > 100.4 Last Admin: 03/13/19 17:39 Dose: 650 mg Aspirin (Aspirin Ec Tab*) 81 mg PO DAILY [facility] Last Admin: 03/13/19 08:09 Dose: 81 mg Bismuth Subsalicylate (Peptic Relief*) 524 mg PO BID PRN PRN Reason: DIARRHEA Last Admin: 03/13/19 14:27 Dose: 524 mg Dorzolamide/Timolol (Cosopt (Nf)) 1 drop BOTH EYES BID [facility]; Protocol Last Admin: 03/13/19 20:43 Dose: 1 drop Enoxaparin Sodium (Lovenox(*)) 40 mg SUBCUT Q24H [facility] Last Admin: 03/13/19 14:28 Dose: 40 mg Cefazolin Sodium (Kefzol 2 Gm In Ns Premix(*)) 2 gm in 100 mls @ 200 mls/hr IVPB Q8H [facility] Last Admin: 03/14/19 01:40 Dose: 200 mls/hr Sodium Chloride (Ns 0.9% 1000 Ml) 1,000 mls @ 100 mls/hr IV PER RATE [facility] Last Admin: 03/13/19 20:40 Dose: 100 mls/hr Levetiracetam (Keppra Liq*) 1,500 mg PO BID [facility] Last Admin: 03/13/19 20:43 Dose: 1,500 mg Ondansetron HCl (Zofran Inj*) 4 mg IV Q6H PRN PRN Reason: NAUSEA Last Admin: 03/13/19 17:17 Dose: 4 mg Oxycodone HCl (Roxycodone Tab*) 5 mg PO Q6H PRN PRN Reason: PAIN - SEVERE Last Admin: 03/11/19 11:31 Dose: 5 mg Polyethylene Glycol/Electrolytes (Miralax*) 17 gm PO DAILY PRN PRN Reason: CONSTIPATION Last Admin: 03/11/19 11:27 Dose: 17 gm Prochlorperazine Edisylate (Compazine Inj*) 10 mg IV Q6H PRN PRN Reason: NAUSEA/VOMITING Last Admin: 03/13/19 20:43 Dose: 10 mg Senna (Senokot 8.6 Mg Tab*) 1 tab PO DAILY PRN PRN Reason: CONSTIPATION Last Admin: 03/10/19 09:03 Dose: 1 tab Vital Signs: Temp Pulse Resp BP Pulse Ox 98.7 F 107 17 143/59 96 03/14/19 15:15 03/14/19 15:15 03/14/19 15:15 03/14/19 15:15 03/14/19 15:15 Oxygen Devices in Use Now: None Appearance: Mr. Goodman is a middle-aged male who is sitting up in bed. He appears well, in no acute distress. He is pleasant, cooperative. Eyes: No Scleral Icterus, PERRLA Ears/Nose/Mouth/Throat: Clear Oropharnyx, Mucous Membranes Moist Neck: NL Appearance and Movements; NL JVP, Trachea Midline Respiratory: Symmetrical Chest Expansion and Respiratory Effort, Clear to Auscultation Cardiovascular: NL Sounds; No Murmurs; No JVD, RRR, No Edema Abdominal: NL Sounds; No Tenderness; No Distention, No Hepatosplenomegaly Extremities: No Edema, No Clubbing, Cyanosis, - - b/l hips tender to palpation with R>L; lumbar area tender to palpation; painful ROM of R hip; intact ROM to L hip Neurological: Alert and Oriented x 3 Result Diagrams: 03/14/19 08:25 03/14/19 08:25 Microbiology and Other Data: Microbiology 03/08/19 10:07 Urine Culture - Preliminary Urine Staphylococcus Aureus Assess/Plan/Problems-Billing Assessment: Mr. 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 He was later found to have MSSA bacteremia of unclear source and is being treated with cefazolin. - Patient Problems (1) Sepsis Comment: - Last night with tachycardia, lacic acidosis- treated with IVF bolus - Met criteria with fever, tachycardia, tachypnea upon admision - ? due to pacer wire infection - continue abx - continue Tylenol (2) MSSA bacteremia Comment: - 07/14 BC with MSSA - Unclear source - Continue Cefazolin 2g - ? Spinal infection vs Hip infection, appreciate Ortho input, low suspicion for septic hip, check spine MRI when available. - ? endocarditis- TERRIE shows vegetation on 2 pacer leads; Renny consulted and recommends transfer to [facility] for removal and replacement - ID consult appreciated - Plan for transfer to [facility] tomorrow a.m. (3) Anemia Comment: -suspect that this is partially dilutional d/t fluid boluses for lactic acidosis /sepsis (4) Thrombocytopenia Comment: - Improving, likely due to infection - No signs of bleeding. - Also associated with acute on chronic lymphopenia, also improving - Monitor. (5) Seizure disorder Comment: - Continue Keppra (6) Subclavian steal syndrome Comment: - Blood pressures only accurate on RUE (7) Congenital heart disease (8) DVT prophylaxis Comment: - Continue lovenox (9) Full code status Comment: Status and Disposition: Inpatient. Continue current ABx.
[2019-03-14] MEDS: CMC:Dorzolamide/Timolol OPTH (NF) 10 ML BOT BOTH EYES SCH ×2 (08:32→21:04)
[2019-03-14] MEDS: levETIRAcetam LIQ* 500 MG/5 ML UDC PO SCH ×2 (08:32→21:04)
[2019-03-14 08:41] LABS: ABS Lymphocytes 0.3 10^3/ul (1.0-4.8); ABS Monocytes 0.8 10^3/ul (0-0.8); ABS Neutrophils 7.2 10^3/ul (1.5-7.7); Eosinophil % 0.2 %; Hematocrit 31 % (42-52); Hemoglobin 10.7 g/dL (14.0-18.0); Lymphocyte % 4.1 %; Mean Corpuscular HGB Conc 35 g/dL (31-36); Mean Corpuscular Hemoglobin 32 pg (27-31); Mean Corpuscular Volume 91 fL (80-94); Mean Platelet Volume 9.2 fL (7.4-10.4); Platelet Count 107 10^3/uL (150-450); Red Blood Count 3.36 10^6 /uL (4.18-5.48); Red Cell Distribution Width 15 % (10-15); White Blood Count 8.5 10^3/uL (3.5-10.8)
[2019-03-14 08:58] LABS: BUN/Creatinine Ratio 15.4 (8-20); Calcium 7.3 mg/dL (8.6-10.3); EGFR African American 150.1 (>60); EGFR Non-African American 124.1 (>60); Potassium 3.5 mmol/L (3.5-5.0)
[2019-03-14] MEDS ORDERED: Naloxone* 0.4 MG/ML 1 ML VIAL ONE (08:58)
[2019-03-14] MEDS ORDERED: Flumazenil* 0.1 MG/ML 5 ML MDV ONE (08:58)
[2019-03-14] MEDS ORDERED: fentaNYL* 50 MCG/ML 2 ML VIAL (100 MCG VIAL) ONE (08:58)
[2019-03-14] MEDS ORDERED: Lidocaine 2% VISCOUS* 15 ML UDC ONE (08:58)
[2019-03-14] MEDS ORDERED: Midazolam* 1 MG/ML 5 ML VIAL (5 MG) ONE (08:58)
[2019-03-14] MEDS: Aspirin EC TAB* 81 MG TAB.EC PO SCH (09:12)
--- NOTE | 2019-03-14 12:14 | TEE ---
*[facility]* [place] [address] Fax #: [phone] Transesophageal Echocardiogram Patient: Figueroa Goodman : 1955 Study Date: 03/14/2019 Age: 64 Gender: M HR: 82 bpm Height: 66 in /167.6 cm BSA: 1.64 m^2 Weight: 124.7 lb /56.7 kg BMI: 20.2 kg/m^2 *Storeroom Keeper: * Iesha De La O [facility] *Referring Physician: * Hector Cardenas *Reading Physician: * Sidney Lawson MD Indications: Bacteremia. History: 3degrees AV block. Congenital syndrome. Subclavian Steal syndrome. Labs, prior tests, procedures, and surgery: Permanent pacemaker system implantation. Conclusions Summary: - Left ventricle: Systolic function is at the lower limits of normal. The estimated ejection fraction is 50-55%, by visual assessment. Wall motion is normal; there are no regional wall motion abnormalities. - Right ventricle: Pacer wire noted in the right ventricle. There is an echodensities measuring 0.8 cm x 1.0 cm that appears to be attached to the pacer wire in the right ventricle. - Right atrium: Pacer wire noted in right atrium. There is a mass in the atrial cavity. Attached to right atrial wire masuring 1.9.cm X 1.1.cm - Mitral valve: There is mild regurgitation. - Aortic valve: There is no evidence of stenosis. There is moderateto severe regurgitation directed centrally in the LVOT. - Tricuspid valve: There is mild regurgitation. - Pulmonary arteries: Systolic pressure can not be accurately estimated. - REsults discussed with Christen Brown NP. Study data: Diagnostic Transesophageal Echocardiogram Consent: The risks and benefits of the procedure, including alternatives were discussed with the patient and/or their health care insurance claims representative and written informed consent was obtained. Procedure: Initial setup: The patient was brought to the laboratory in the fasting state.Intravenous access was obtained. Surface ECG leads, heart rate, heart rhythm, blood pressure measurements, pulse oximetric signals, and mainstream end-tidal CO2 tracings were monitored throughout the procedure. Sedation. Moderate sedation was administered by nursing staff. History and physical as well as labs were reviewed. An oral bite block was inserted for protection of oral dentition. The patient was placed in the left lateral decubitus position. Topical anesthesia was obtained using viscous lidocaine. A transesophageal probe was inserted by the attending assistant branch operations manager. Transesophageal echocardiography was performed, image quality was good, and all standard views were attempted within the limitations of patient tolerance and safety. Multiple 2D, color flow Doppler and spectral Doppler images were obtained. The transesophageal probe was removed. A bubble study was performed. Location: Procedure room. Patient status: Inpatient. Patient room number: 403. Study completion: The patient tolerated the procedure well. There were no complications. Administered medications: Midazolam, 4mg. Fentanyl, 50mcg. Rhythm: Normal sinus rhythm. Findings Left ventricle: The cavity size is normal. Wall thickness is normal. Systolic function is at the lower limits of normal. The estimated ejection fraction is 50-55%, by visual assessment. Wall motion is normal; there are no regional wall motion abnormalities. Right ventricle: The cavity size is normal. Pacer wire noted in the right ventricle. There is an echodensities measuring 0.8 cm x 1.0 cm that appears to be attached to the pacer wire in the right ventricle. Systolic function is normal. Ventricular septum: There is abnormal interventricular septal wall motion consistent with an RV pacemaker. Left atrium: The atrium is normal in size. Emptying velocity is normal. Right atrium: The atrium is normal in size. Pacer wire noted in right atrium. There is no evidence of a thrombus in the atrial cavity or appendage. There is a mass in the atrial cavity. Attached to right atrial wire masuring 1.9.cm X 1.1.cm Atrial septum: Delayed appearance of agitated saline contrast in the LA suggestive of possible transpulmonary passage or shunt. No patent foramen ovale by color doppler or agitated saline. Image 62. Mitral valve: The leaflets are mildly thickened. There is no evidence of a vegetation. There is no evidence of stenosis. There is mild regurgitation. Aortic valve: The leaflets are mildly thickened. There is no evidence of a vegetation. There is no evidence of stenosis. There is moderateto severe regurgitation directed centrally in the LVOT. Tricuspid valve: There is no evidence of a vegetation. There is no evidence of stenosis. There is mild regurgitation. Pulmonic valve: There is no evidence of a vegetation. There is no evidence of stenosis. There is trace regurgitation. Aorta: There is minimal atherosclerotic plaque visualized in the Descending Aorta. Aortic root: The aortic root is mildly dilated. The aortic arch appears normal. The ascending aorta appears normal. Pericardium: There is no significant pericardial effusion. Pulmonary arteries: The main pulmonary artery is normal-sized. Systolic pressure can not be accurately estimated. Systemic veins: Inferior vena cava: The vessel is normal in size. Bicaval view attempted and appears normal. Pulmonary veins: Visualization of the pulmonary venous anatomy is incomplete, but a significant abnormality is unlikely. 1 of 4 visualized. Measurements LVOT Value Ref Mitral valve Value Ref Peak elda, S 0.89 m/sec ---- Peak E 0.74 m/sec ---- VTI, S 17.0 cm ---- Peak A 0.56 m/sec ---- Mean grad, S 2 mm Hg ---- Decel time 162 ms ---- Peak grad, D 2.2 mm Hg ---- Aortic valve Value Ref Peak E/A ratio 1.3 ---- Giana diam, ED 2.2 cm ---- Peak v, S 1.62 m/sec ---- Aortic root Value Ref VTI, S 32.0 cm ---- Root diam 3.8 cm <3.9 Mean grad, S 7.0 mm Hg ---- Peak grad, S 10.0 mm Hg ---- Ascending aorta Value Ref LVOT/AV, VTI ratio 0.53 ---- AAo AP diam, S 3.3 cm ---- AR peak v 4.46 m/sec ---- AR PHT 323 ms ---- AR peak grad 80 mm Hg ---- Legend: (L) and (H) heraclio values outside specified reference range. Prepared and electronically signed by Sidney Lawson MD 03/14/2019 12:14
--- NOTE | 2019-03-14 12:26 | PN ---
Progress Note - Progress Note Date of Service: 03/14/19 SOAP: Subjective: []Pt seen at bedside. Reports right low back pain, no hip or lower extremity pain. + infected pacer wires Objective: []Gen: NAD Tender bilateral lumbar paraspinal musculature, R>L. Tender over R SI joint. BL LE: Skin envelope intact without erythema. Nontender to palpation of hip, groin, knee. No pain in hips with 0-70 degrees flexion, flexion limited by pain in low back. Negative log roll bl. NVI distally Assessment: []Low suspicion for septic arthritis of his hips due to painless ROM of hips. Despite identification of infected pacer wires, patient continues to have low back pain warranting continued concern for infection of lumbar spine/ si joint/ psoas Plan: []MRI R hip, L and T spine pending. Continue IV abx per ID-. Infected pacer wires, MSSA bacteremia. on cefazolin Do not suspect septic hip infection but further studies needed to rule out lumbar spine pathology, MRI ordered Will continue to follow while in house, infectious workup continued per primary team . Please alert ortho with any concerns or new features Vital Signs Temp 99.3 F 03/14/19 10:18 Pulse 88 03/14/19 10:18 Resp 16 03/14/19 10:18 BP 124/62 03/14/19 10:18 Pulse Ox 98 03/14/19 10:18 Intake & Output 03/13/19 03/14/19 03/14/19 18:59 06:59 18:59 Intake Total 1850 2438 150 Output Total 475 250 Balance 1375 2188 150 Weight 163 lb Intake: IV Fluids 300 1643 150 NS 300 1643 IVPB 65 cefazolin 65 Oral 1550 730 0 Output: Urine 475 250 Other: Estimated Void Large Medium # Bowel Movements 2 1 Estimated Stool Amount Medium Medium # Voids 1 1 Laboratory Last Values WBC 8.5 10^3/uL (3.5-10.8) 03/14/19 08:25 RBC 3.36 10^6 /uL (4.18-5.48) L 03/14/19 08:25 Hgb 10.7 g/dL (14.0-18.0) L 03/14/19 08:25 Hct 31 % (42-52) L 03/14/19 08:25 MCV 91 fL (80-94) 03/14/19 08:25 MCH 32 pg (27-31) H 03/14/19 08:25 MCHC 35 g/dL (31-36) 03/14/19 08:25 RDW 15 % (10-15) 03/14/19 08:25 Plt Count 107 10^3/uL (150-450) L 03/14/19 08:25 MPV 9.2 fL (7.4-10.4) 03/14/19 08:25 Neut % (Auto) 85.5 % 03/14/19 08:25 Lymph % (Auto) 4.1 % 03/14/19 08:25 [place] % (Auto) 9.9 % 03/14/19 08:25 Eos % (Auto) 0.2 % 03/14/19 08:25 Baso % (Auto) 0.3 % 03/14/19 08:25 Absolute Neuts (auto) 7.2 10^3/ul (1.5-7.7) 03/14/19 08:25 Absolute Lymphs (auto) 0.3 10^3/ul (1.0-4.8) L 03/14/19 08:25 Absolute Monos (auto) 0.8 10^3/ul (0-0.8) 03/14/19 08:25 Absolute Eos (auto) 0.0 10^3/ul (0-0.6) 03/14/19 08:25 Absolute Basos (auto) 0.0 10^3/ul (0-0.2) 03/14/19 08:25 Absolute Nucleated RBC 0.0 10^3/ul 03/14/19 08:25 Nucleated RBC % 0.0 03/14/19 08:25 Hem Pathologist Commnt 03/07/19 21:28 Sodium 143 mmol/L (135-145) 03/14/19 08:25 Potassium 3.5 mmol/L (3.5-5.0) 03/14/19 08:25 Chloride 113 mmol/L (101-111) H 03/14/19 08:25 Carbon Dioxide 24 mmol/L (22-32) 03/14/19 08:25 Anion Gap 6 mmol/L (2-11) 03/14/19 08:25 BUN 10 mg/dL (6-24) 03/14/19 08:25 Creatinine 0.65 mg/dL (0.67-1.17) L 03/14/19 08:25 Est GFR ( Amer) 150.1 (>60) 03/14/19 08:25 Est GFR (Non-Af Amer) 124.1 (>60) 03/14/19 08:25 BUN/Creatinine Ratio 15.4 (8-20) 03/14/19 08:25 Glucose 91 mg/dL (70-100) 03/14/19 08:25 Lactic Acid 1.3 mmol/L (0.5-2.0) 03/13/19 20:17 Calcium 7.3 mg/dL (8.6-10.3) L 03/14/19 08:25 Magnesium 2.0 mg/dL (1.9-2.7) 03/14/19 08:25 Total Bilirubin 0.70 mg/dL (0.2-1.0) 03/13/19 17:40 AST 24 U/L (13-39) 03/13/19 17:40 ALT 10 U/L (7-52) 03/13/19 17:40 Alkaline Phosphatase 131 U/L (34-104) H 03/13/19 17:40 C-Reactive Protein 220.39 mg/L (<8.01) H 03/13/19 09:18 Total Protein 5.5 g/dL (6.4-8.9) L 03/13/19 17:40 Albumin 2.5 g/dL (3.2-5.2) L 03/13/19 17:40 Globulin 3.0 g/dL (2-4) 03/13/19 17:40 Albumin/Globulin Ratio 0.8 (1-3) L 03/13/19 17:40 Lipase 21 U/L (11.0-82.0) 03/07/19 21:28 Urine Color Yellow 03/08/19 10:07 Urine Appearance Clear 03/08/19 10:07 Urine pH 6.0 (5-9) 03/08/19 10:07 Ur Specific [place] 1.032 (1.010-1.030) H 03/08/19 10:07 Urine Protein 1+(30 mg/dl) (Negative) A 03/08/19 10:07 Urine Ketones Negative (Negative) 03/08/19 10:07 Urine Blood 2+ (Negative) A 03/08/19 10:07 Urine Nitrate Negative (Negative) 03/08/19 10:07 Urine Bilirubin Negative (Negative) 03/08/19 10:07 Urine Urobilinogen Negative (Negative) 03/08/19 10:07 Ur Leukocyte Esterase Negative (Negative) 03/08/19 10:07 Urine WBC (Auto) Trace(0-5/hpf) (Absent) 03/08/19 10:07 Urine RBC (Auto) 1+(3-5/hpf) (Absent) A 03/08/19 10:07 Urine Bacteria Absent (Absent) 03/08/19 10:07 Urine Glucose Negative (Negative) 03/08/19 10:07 Influenza A (Rapid) Negative (Negative) 03/10/19 18:05 Influenza B (Rapid) Negative (Negative) 03/10/19 18:05
[2019-03-14] MEDS: Enoxaparin(*) 40 MG/0.4 ML SYR SUBCUT SCH (13:46)
--- NOTE | 2019-03-14 15:22 | PN ---
Progress Note - Progress Note Date of Service: 03/14/19 SOAP: Subjective: CC: cardiac device infection HPI: 64 year old man with pacemaker and staphylococcal bacteremia; TERRIE showed vegetations on both pacer leads, no valve vegetation. He has no fever, rash, or diarrhea. Right buttock pain about the same, no weakness in LE. Objective: Vital Signs Temp 37.7 C 03/14/19 14:25 Pulse 106 03/14/19 14:25 Resp 18 03/14/19 14:25 BP 169/76 03/14/19 14:25 Pulse Ox 100 03/14/19 14:25 Intake & Output 03/13/19 03/14/19 03/14/19 18:59 06:59 18:59 Intake Total 1850 2438 150 Output Total 475 250 Balance 1375 2188 150 Weight 163 lb Intake: IV Fluids 300 1643 150 NS 300 1643 IVPB 65 cefazolin 65 Oral 1550 730 0 Output: Urine 475 250 Other: Estimated Void Large Medium # Bowel Movements 2 1 Estimated Stool Amount Medium Medium # Voids 1 1 Gen:awake, no distress HEENT: no thrush Heart:RRR no murmur Lungs:CTA BL Abd:+BS NTND soft Skin: no rash MSK: no spine tenderness, right SI joint tender, no log roll sign Neuro: no LE clonus BL, strength 5/5 quad/TA/gastroc BL Laboratory Results - last 24 hr 03/13/19 03/13/19 03/13/19 17:40 17:40 17:40 WBC 9.7 RBC 4.17 L Hgb 13.3 L Hct 38 L MCV 91 MCH 32 H MCHC 35 RDW 16 H Plt Count 117 L MPV 9.6 Neut % (Auto) 85.8 Lymph % (Auto) 5.2 Evangeline % (Auto) 8.1 Eos % (Auto) 0.0 Baso % (Auto) 0.9 Absolute Neuts (auto) 8.3 H Absolute Lymphs (auto) 0.5 L Absolute Monos (auto) 0.8 Absolute Eos (auto) 0.0 Absolute Basos (auto) 0.1 Absolute Nucleated RBC 0.0 Nucleated RBC % 0.0 Sodium 139 Potassium 4.2 Chloride 108 Carbon Dioxide 22 Anion Gap 9 BUN 14 Creatinine 0.83 Est GFR ( Amer) 113.2 Est GFR (Non-Af Amer) 93.6 BUN/Creatinine Ratio 16.9 Glucose 116 H Lactic Acid 3.3 H* Calcium 7.5 L Magnesium Total Bilirubin 0.70 AST 24 ALT 10 Alkaline Phosphatase 131 H Total Protein 5.5 L Albumin 2.5 L Globulin 3.0 Albumin/Globulin Ratio 0.8 L 03/13/19 03/14/19 03/14/19 20:17 08:25 08:25 WBC 8.5 RBC 3.36 L Hgb 10.7 L Hct 31 L MCV 91 MCH 32 H MCHC 35 RDW 15 Plt Count 107 L MPV 9.2 Neut % (Auto) 85.5 Lymph % (Auto) 4.1 Evangeline % (Auto) 9.9 Eos % (Auto) 0.2 Baso % (Auto) 0.3 Absolute Neuts (auto) 7.2 Absolute Lymphs (auto) 0.3 L Absolute Monos (auto) 0.8 Absolute Eos (auto) 0.0 Absolute Basos (auto) 0.0 Absolute Nucleated RBC 0.0 Nucleated RBC % 0.0 Sodium 143 Potassium 3.5 Chloride 113 H Carbon Dioxide 24 Anion Gap 6 BUN 10 Creatinine 0.65 L Est GFR ( Amer) 150.1 Est GFR (Non-Af Amer) 124.1 BUN/Creatinine Ratio 15.4 Glucose 91 Lactic Acid 1.3 Calcium 7.3 L Magnesium 2.0 Total Bilirubin AST ALT Alkaline Phosphatase Total Protein Albumin Globulin Albumin/Globulin Ratio Microbiology 03/10/19 17:26 Blood Venous Aerobic Blood Culture - Final Staphylococcus Aureus 03/10/19 17:26 Blood Venous Anaerobic Blood Culture - Final Staphylococcus Aureus 03/10/19 17:26 Blood Venous Aerobic Blood Culture - Final Staphylococcus Aureus 03/10/19 17:26 Blood Venous Anaerobic Blood Culture - Final Staphylococcus Aureus 03/10/19 17:26 Blood Venous Blood MRSA/MSSA (PCR) - Final Mrsa Negative S.aureus Positive 03/08/19 10:07 Urine Urine Culture - Final Staphylococcus Aureus Normal Shaye Assessment: 1. MSSA cardiac device infection 2. Right buttock pain ?spine infection or septic SI joint, less likely septic hip, and neurologically intact. 3. developmental delay Plan: 1. recheck BC pending, continue ancef 2 gm IV Q8hrs, transfer for EP eval, pacer extraction. Still needs MRI pelvis and L spine, has been delayed by radiology protocol on MRI in setting of cardiac device. 35 minutes floor time >50% face to face in counseling with pt and sister regarding plans for transfer and antibiotic treatment.
[2019-03-14] MEDS: ceFAZolin* 2 GM in NS 100 MLS Q8H (Pharmacy Admix) IVPB SCH (16:54)
[2019-03-14] MEDS: NS 0.9% 1000 ML** 1,000 ML IV SCH (22:40)
--- NOTE | 2019-03-14 23:28 | DS ---
ADDENDUM NOW INCLUDED ON THIS REPOT CC: Dr. Aguilar; Dr. Moreira * TRANSFER SUMMARY: DATE OF ADMISSION: 03/09/19 ANTICIPATED DATE OF DISCHARGE: 03/15/19 PRIMARY CARE PROVIDER: Dr. Aguilar. OTHER PROVIDERS: Dr. Moreira. ATTENDING PHYSICIAN: Giulia Galan MD * (dictated by JANEEN Oseguera). PRIMARY DIAGNOSES: 1. Methicillin susceptible Staphylococcus aureus bacteremia. 2. 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 3. Sepsis. 4. Thrombocytopenia. SECONDARY DIAGNOSES: 1. Seizure disorder. 2. 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 3. Congenital heart disease status post surgery 4. Subclavian steal syndrome. 5. Squamous cell carcinoma, left maxillary status post surgery radiation. STUDIES WHILE IN THE HOSPITAL: 1. CT abdomen and pelvis. Impression: No CT findings to correlate the patient 's symptomatology. Chronic left UVJ obstruction. Chronic bilateral calculi. 2. CT abdomen and pelvis. Impression: Small bilateral pleural effusions are noted. Normal appendix. 3. Chest x-ray: Impression: Progressive interstitial edema when compared to previous exam on 10/29/17. 4. Transthoracic echocardiogram. Summary: LV cavity size normal. Wall thickness normal. Systolic function normal. Estimated EF 50% to 55%. Wall motion normal. No regional wall motion abnormalities. Normal cardiac chamber sizes. Mild-to- moderate AR. Aortic root mildly dilated. No intracardiac vegetation seen on transthoracic echo. 5. Left femur. Impression: No fracture identified. Vascular calcifications. 6. Right femur. Impression: No fracture identified. Vascular calcifications. 7. Transesophageal echocardiogram. Summary: LV systolic function at lower limits of normal. Estimated EF 50% to 55% by visual assessment. Wall motion normal. No regional wall motion abnormalities. RV pacer wire noted in RV. There is an echo density measuring 0.8 x 1.0 cm that appears to be attached to the pacer wire in the right ventricle. Right atrium, the pacer wire noted. In the right atrium, there is a mass in the atrial cavity attached to the right atrial wire measuring 1.9 cm x 1.1 cm and the mild MR. No evidence of AF. Moderate to severe AR directed centrally in the LVOT, mild TR. Pulmonary artery systolic pressure cannot be accurately estimated. 8. Chest x-ray: Impression: Progressive CHF in right upper lobe, right lower lobe, and left lower lobe airspace disease. Pacemaker leads are in place. CONSULTATIONS WHILE IN THE HOSPITAL: 1. Infectious Disease: Impression and Recommendations: MSSA bacteremia, does have Staph aureus in urine which I suspect secondary to bacteremia. Differential versus primary source include infective endocarditis. He does have a pacemaker. So cardiac device infection is on differential. He has low back and right SI and buttock tenderness on exam. Pain with weightbearing. He could have a lumbar spine infection, septic sacroiliac joint, septic arthritis, though his logroll on the right is not particularly impressive. It is still a consideration. Recommend continue Ancef 2 g IV q.8 hours. Recheck blood cultures to ensure clearance, obtain transesophageal echocardiogram. Reportedly Radiology said he cannot have a MRI because of pacemaker. Please check with Radiology to see what the specifics are of this device and if it is something they are able to do here per their protocol. 2. Orthopedic Surgery consultation: Impression and Plan: A 64-year-old male with elevated CRP and positive blood cultures. He has bilateral low back, lateral hip and thigh pain. I have a very low concern for septic arthritis of hips given his painless range of motion. I would recommend getting x-rays of bilateral femurs, as these are not covered on prior CT scan of the pelvis and are within the distribution of this pain. I would also recommend obtaining imaging of the lumbar spine such as an MRI as I am more concerned that this could be the source of this pain and potential infection. Pain is more typical of lumbar spine distribution and bilateral nature is also more consistent with spine pathology. Please reach out to Orthopedics if any orthopedic questions or concerns. DISCHARGE MEDICATIONS: 1. Aspirin 81 mg p.o. daily. 2. Levetiracetam 1500 mg p.o. b.i.d. 3. Dorzolamide/Timolol 1 drop to both eyes b.i.d. 4. Oxycodone 5 mg p.o. q.6 hours p.r.n. pain. 5. Cefazolin 2 grams IV piggyback q.8 hours. HISTORY OF PRESENT ILLNESS/HOSPITAL COURSE: Mr. Goodman is a 64-year-old male with a past medical history of seizure disorder, history of third degree AV block status post permanent pacemaker incision and developmental delay, who presented to the ER on 03/08/19 with complaints of abdominal pain, nausea, vomiting and diarrhea. For full and complete details, please see the history and physical dictated by Madie Richardson DO, but in short the patient presents with these symptoms for the last 3 days. He was admitted to the hospital with concerns for dehydration secondary to gastroenteritis. He was noted to meet SIRS criteria with fever, tachycardia and tachypnea. This was initially suspected to be due to viral gastroenteritis. Blood cultures were ordered and the patient was started on Zosyn. Flu swab was negative. Blood cultures revealed Staphylococcus aureus in 4 out of 4 bottles. This was susceptible to cefazolin and therefore the patient's antibiotics were changed. Orthopedics was consulted due to right hip pain and low back pain. Orthopedics recommended MRI of the thoracic and lumbar spine as well as the right hip. Infectious Disease was consulted and recommended transthoracic echocardiogram. Transthoracic echocardiogram revealed no vegetation. A transesophageal echocardiogram was then ordered and revealed vegetation on pacer leads. Cardiology recommends transfer of the patient to a location that is able to remove and replace pacer leads. Infectious Disease also recommends transfer of the patient with continuation of antibiotics. Prior to transfer the patient was unable to obtain MRI of the thoracic lumbar and right hip. It is recommended that he receive these imaging studies as there is some concern that he may have spinal infection or a septic SI joint. Currently, the patient is preparing for transfer for tomorrow morning and he will be transferred to [facility]. Dr. Sweet has accepted the patient under general cardiology services. Mr. Goodman is seen in the room with both of his sisters at bedside, who help to explain today's events although he is somewhat confused and does not appear to have full understanding of the situation. The patient continues to have right-sided low back pain and right hip pain. He denies any other symptoms. REVIEW OF SYSTEMS: A 14-point review of systems was performed and all the pertinent positives and negatives are in the HPI. All other systems are negative. PHYSICAL EXAMINATION: Vital Signs: Temperature 98.7 temporal, heart rate 107, respiratory rate 17, oxygen saturation 96% on room air, blood pressure 143/59. General: Mr. Goodman is a well-developed, well-nourished, overweight, middle- aged white male, who is sitting up in bed. He appears to be in mild amount of discomfort, but in no acute distress. He is pleasant and cooperative. He is somewhat difficult to understand as he has some mild speech impairment and is mildly developmentally delayed. HEENT: PERRL. EOMI. Nonicteric sclerae. Hearing appears to be grossly intact. Oral mucous membranes are moist. There are no lesions. There are surgical changes noted to the mandible. The patient also has an enlarged lower lip. Tongue is at midline. Cardiovascular: Regular in rate and rhythm with S1, S2 present. No murmurs, rubs, clicks, or gallops. There is no JVD. There is no peripheral edema. Pulmonary: Symmetrical chest expansion without the use of accessory muscles. Clear to auscultation bilaterally without rhonchi, wheeze, or rubs. Abdomen: Bowel sounds in all quadrants. Soft, nontender to palpation. Musculoskeletal: Left lower extremity with mildly painful hip flexion and extension, but full range of motion. Left lower extremity with worsened pain with flexion and extension of the left hip. There is tenderness to palpation at the left hip in the lumbar area as well as to the right of the lumbar spine. Neuro: The patient is awake. He is alert. He is oriented x3. Cranial nerves are grossly intact. DISCHARGE PLAN: Mr. Goodman will be discharged to [facility] under the care of Dr. Hector Sweet, of General Cardiology for the removal of infected pacer leads. CONDITION: Stable. DIET: Resume home diet. MEDICATIONS: 1. Continue home medications. 2. Continue cefazolin 2 grams IV q.8 hours. RECOMMENDATIONS: Recommend thoracic, lumbar, and right hip MRI to assess for further infection. This is a summarized report of a complex medical history and hospital stay. For further details, please see the entire medical record TIME SPENT: Approximately 45 minutes was spent on this transfer discharge, greater than half that time was spent face to face with the patient and his sisters discussing discharge plans and instructions. JANEEN MARTIN DATE OF ADMISSION: 03/09/19 DATE OF DISCHARGE: 03/15/19 ADDENDUM: FINAL HOSPITAL COURSE: Mr. Goodman, a 64-year-old male who is in the hospital for MSSA bacteremia with pacer wire infection and lead vegetation, sepsis, and thrombocytopenia. He will be transferred today to [facility]. Please see the above note for full hospital course. This portion represents overnight events. Last night, the patient developed a fever overnight reaching a maximum of 100.5. He developed rigors this morning. He is seen this morning in his room. He has developed left upper extremity and lower extremity edema. He reports pain in the left biceps area. He also complains of continued pain in the lumbar spine and the right hip. He has no pain elsewhere. He does have a cough, but notes that this is chronic and has not changed in nature. He complains of rigors/chills, but these are relieved with Tylenol. The patient is noted to have continued thrombocytopenia with a platelet count of 118 currently that is trending upwards. His potassium is noted to be 3.0 at this time. He was given 40 oral potassium prior to discharge, but recommendation is to replete to a goal of 4.0. PHYSICAL EXAMINATION: Vital Signs: Temperature 99.0 temporal, heart rate 75, respiratory rate 18, oxygen saturation 96% on room air, blood pressure 145/63. HEENT: PERRL. EOMI. Nonicteric sclerae. Hearing is grossly intact. Oral mucous membranes are moist. The patient has poor dentition. The lower jaw appears to be shifted to the left and the patient has a protuberant lower lip. Cardiovascular: Regular rate and rhythm with S1, S2 present without murmurs. There are no rubs, clicks, or gallops. No JVD. There is left upper extremity and left lower extremity edema. Left upper extremity edema is 1+ pitting. Left lower extremity edema is trace to 1+ pitting. Pulmonary: Symmetrical chest expansion without the use of accessory muscles. Clear to auscultation bilaterally anteriorly without rhonchi, wheeze, or rubs. Abdomen: Bowel sounds in all quadrants. Soft, nontender to palpation. Musculoskeletal: Lumbar spine and right hip tender to palpation. RECOMMENDATIONS: 1. Recommend thoracic, lumbar and right hip MRI to assess for further infection. 2. Recommend repletion of potassium. The patient's potassium was 3.0. He was given 40 p.o. potassium. 3. Recommend ultrasound of left upper extremity and left lower extremity to assess for obstruction of blood flow. DISCHARGE PLAN: Mr. Goodman will be discharged to [facility] under the care of Dr. Hector Sweet of general cardiology. PACO NEAL, JANEEN [id number]/CPS #: [id number]/CPS #: [id number] [facility]
[2019-03-15] MEDS: Acetaminophen TAB* 325 MG PO PRN ×2 (00:34→09:31)
[2019-03-15] MEDS: ceFAZolin* 2 GM in NS 100 MLS Q8H (Pharmacy Admix) IVPB SCH ×2 (00:39→09:13)
[2019-03-15 08:12] VITALS: BP 145/63
[2019-03-15 08:46] LABS: ABS Lymphocytes 0.4 10^3/ul (1.0-4.8); ABS Monocytes 0.8 10^3/ul (0-0.8); ABS Neutrophils 5.3 10^3/ul (1.5-7.7); Eosinophil % 0.4 %; Hematocrit 29 % (42-52); Hemoglobin 10.2 g/dL (14.0-18.0); Lymphocyte % 6.8 %; Mean Corpuscular HGB Conc 35 g/dL (31-36); Mean Corpuscular Hemoglobin 32 pg (27-31); Mean Corpuscular Volume 91 fL (80-94); Mean Platelet Volume 8.8 fL (7.4-10.4); Nucleated Red Blood Cells % 0.1; Platelet Count 118 10^3/uL (150-450); Red Blood Count 3.21 10^6 /uL (4.18-5.48); Red Cell Distribution Width 15 % (10-15); White Blood Count 6.5 10^3/uL (3.5-10.8)
[2019-03-15 09:07] LABS: BUN/Creatinine Ratio 9.4 (8-20); Calcium 7.4 mg/dL (8.6-10.3); EGFR African American 152.8 (>60); EGFR Non-African American 126.3 (>60)
[2019-03-15] MEDS: Aspirin EC TAB* 81 MG TAB.EC PO SCH (09:17)
[2019-03-15] MEDS: levETIRAcetam LIQ* 500 MG/5 ML UDC PO SCH (09:17)
[2019-03-15] MEDS: CMC:Dorzolamide/Timolol OPTH (NF) 10 ML BOT BOTH EYES SCH (09:21)
[2019-03-15] MEDS ORDERED: Potassium Chlor TAB* 20 MEQ TAB.ER PO ONE (09:24)
[2019-03-15] MEDS ORDERED: KCL 20 MEQ/100 ML IVPREMIX* 20 MEQ/100 ML BAG IV SCH (10:00)
[2019-03-15] MEDS: NS 0.9% 1000 ML** 1,000 ML IV SCH ×2 (10:16→10:18)
--- NOTE | 2019-03-15 10:58 | DS ---
DISCHARGE SUMMARY: DATE OF ADMISSION: 03/09/19 DATE OF DISCHARGE: 03/15/19 ADDENDUM: FINAL HOSPITAL COURSE: Mr. Goodman, a 64-year-old male, who is in the hospital for MSSA bacteremia with pacer wire infection and lead vegetation, sepsis, and thrombocytopenia will be transferred today to [facility]. Please see the above note for full hospital course. This portion represents overnight events. Last night, the patient developed a fever overnight reaching a maximum of 100.5. He developed rigors. He is seen this morning in his room. He has developed left upper extremity and lower extremity edema. He reports pain in the left biceps area. He also complains of continued pain in the lumbar spine and the right hip. He has no pain elsewhere. He does have a cough, but notes that this is chronic and has not changed in nature. He complains of rigors/ chills, but these are relieved with Tylenol. The patient is noted to have continued thrombocytopenia with a platelet count of 118 currently and it is trending upwards. His potassium is noted to be 3.0 at this time. He was given 40 oral potassium prior to discharge, but recommendation is to replete to a goal of 4.0. PHYSICAL EXAMINATION: Vital Signs: Temperature 99.0 temporal, heart rate 75, respiratory rate 18, oxygen saturation 96% on room air, blood pressure 145/63. HEENT: PERRL. EOMI. Nonicteric sclerae. Hearing is grossly intact. Oral mucous membranes are moist. The patient has poor dentition. The lower jaw appears to be shifted to the left and the patient has a protuberant lower lip. Cardiovascular: Regular rate and rhythm with S1, S2 present without murmurs. There are no rubs, clicks, or gallops. No JVD. There is left upper extremity and left lower extremity edema. Left upper extremity edema is 1+ pitting. Left lower extremity edema is trace to 1+ pitting. Pulmonary: Symmetrical chest expansion without the use of accessory muscles. Clear to auscultation bilaterally anteriorly without rhonchi, wheeze, or rubs. Abdomen: Bowel sounds in all quadrants. Soft, nontender to palpation. Lumbar spine and right hip tender to palpation. RECOMMENDATIONS: 1. Recommend thoracic, lumbar and right hip MRI to assess for further infection. 2. Recommend repletion of potassium. The patient's potassium was 3.0. He was given 40 p.o. potassium. 3. Recommend ultrasound of left upper extremity and left lower extremity to assess for obstruction of blood flow. DISCHARGE PLAN: Mr. Goodman will be discharged to [facility] under the care of Dr. Hector Sweet of general cardiology. JANEEN MARTIN [id number]/[facility] #: [id number] [facility]PITAL CENTERAleksandra
== END 2019-03-15 11:48 | disposition short-term general hospital (02) | DRG 314 ==
LOC: ED 20:32 → MED 03-08 02:18 → OBSVTOIN 03-09 16:00
PROVIDERS: ADMIT Hospitalist; ATTEND Internal Medicine
PROC: B24BZZ4 Ultrasonography of Heart with Aorta, Transesophageal (ICD-10-PCS; principal; 2019-03-09)
DX: T82.7XXA Infection and inflammatory reaction due to other cardiac and vascular devices, implants and grafts, initial encounter (principal); A41.01 Sepsis due to Methicillin susceptible Staphylococcus aureus; I44.2 Atrioventricular block, complete; G45.8 Other transient cerebral ischemic attacks and related syndromes; I25.10 Atherosclerotic heart disease of native coronary artery without angina pectoris; J42 Unspecified chronic bronchitis; H40.9 Unspecified glaucoma; G40.909 Epilepsy, unspecified, not intractable, without status epilepticus; F70 Mild intellectual disabilities; N20.0 Calculus of kidney; E86.0 Dehydration; K52.9 Noninfective gastroenteritis and colitis, unspecified; M54.5 Low back pain; M25.551 Pain in right hip; D72.810 Lymphocytopenia; Y71.2 Prosthetic and other implants, materials and accessory cardiovascular devices associated with adverse incidents; D69.6 Thrombocytopenia, unspecified; Z95.0 Presence of cardiac pacemaker; Z85.828 Personal history of other malignant neoplasm of skin; R04.0 Epistaxis; Y92.9 Unspecified place or not applicable; Z79.82 Long term (current) use of aspirin
CPT/HCPCS: 36415; 71045; 74018; 74177; 80048; 80053; 81003; 81015; 83605; 83690; 83735; 85025; 85060; 86140; 87040; 87077; 87086; 87150; 87186; 87205; 93005; 93306; 93312; 93325; 99156; 99157; 99284; A9270-GY; G0378; J0690; J0780; J1650; J1885; J2250; J2310; J2405; J2543; J3010; J3475; J3480; Q9967

== ENCOUNTER 2019-03-24 16:26 | Emergency (ER) | payer MEDICARE, MEDICAID ==
[2019-03-24 16:33] VITALS: BP 102/68
--- OUTSIDE RECORDS SUMMARY | 2019-03-24 16:45 | XMS REPORT ---
:1955 Author Organization [facility] Care Team Providers Name Role Phone Unavailable Unavailable Unavailable Problems This patient has no known problems. Allergies, Adverse Reactions, Alerts Allergy Allergy Status Severity Reaction(s) Onset Inactive Treating Comments Name Type Date Date Clinician Unknown None Active Unknown None Unknown No Known Allergies For This Patient Medications Ordered Filled Start Stop Current Ordering Indication Dosage Frequency Signature Comments Components Medication Medication Date Date Medication? Clinician (SIG) Name Name No Known No Known No None None None Medications Medications For This For This Patient Patient Procedures This patient has no known procedures. Results This patient has no known results.
--- OUTSIDE RECORDS SUMMARY | 2019-03-24 16:45 | XMS REPORT ---
:1955 Author Organization [facility] Care Team Providers Name Role Phone Unavailable [...]
--- OUTSIDE RECORDS SUMMARY | 2019-03-24 16:45 | XMS REPORT ---
:1955 Author Organization [facility] Care Team Providers Name Role Phone Unavailable Unavailable Unavailable Problems Condition Condition Condition Status Onset Resolution Last Treating Comments Name Details Category Date Date Treatment Clinician Date Respiratory lung Respiratory Active 2018-04 Steph sounds 2-11 Antonio deficit 16:00: [id number] Allergies, Adverse Reactions, Alerts Allergy Allergy Status [...] Medications For This For This Patient Patient Vital Signs Vital Name Observation Time Observation Value Comments SYSTOLIC mm[Hg] 2019-03-22 18:09:18 90 mm[Hg] mm[Hg] Method: Sit DIASTOLIC mm[Hg] 2019-03-22 18:09:18 60 mm[Hg] mm[Hg] Method: Sit PULSE 2019-03-22 18:09:18 88 /min /min RESP RATE 2019-03-22 18:09:18 18 /min /min TEMP 2019-03-22 18:09:18 97 [degF] Procedures This patient has no known procedures. Results This patient has no known results.
--- OUTSIDE RECORDS SUMMARY | 2019-03-24 16:45 | XMS REPORT | Continuity of Care Document ---
:1955 External Reference #:[id number] Author Name Judi Rowell N.P. (transmitted by agent of provider Jessica Interiano) Address [address] [place] [address] Care Team Providers Name Role Phone Cassandra Chiang MD - Clinical Cardiac Care Team Information Tool Marker Electrophysiology Lori Osorio MD - Internal Care Team Information Tool Marker Medicine Problems Active Problems Provider Date Seizure Kelvin Manriquez M.D. Onset: 02/17/2012 Anemia Kevlin Manriquez M.D. Onset: 08/16/2012 Mixed hyperlipidemia Kelvin Manriquez M.D. Onset: 08/30/2012 Emphysematous bronchitis Kelvin Manriquez M.D. Onset: 03/06/2013 Subclavian steal syndrome Tejinder Devine M.D. Onset: 06/15/2013 Kidney stone Tejinder Devine M.D. Onset: 08/30/2013 Synovial cyst of popliteal space Tejinder Devine M.D. Onset: 08/30/2013 Parasomnia In Conditions Classified Genesis Vasquez MD Onset: 06/20/2014 Elsewhere Complete atrioventricular block Lily Busby M.D. Onset: 11/05/2014 Note: s/p pacemaker Mobitz type II atrioventricular block Tejinder Devine M.D. Onset: 2017 Undifferentiated carcinoma of nasal sinus Steph Bullock M.D. Onset: 06/19 Aortic valve disorder Lori Osorio M.D. Onset: 09/06/2018 Note: aortic valve insufficiency Social History Type Date Description Comments Sex Unknown Tobacco Use Start: Unknown Never Smoked Cigarettes ETOH Use Denies alcohol use Recreational Drug Use Denies Drug Use Tobacco Use Start: Unknown Patient has never smoked Smoking Status Reviewed: 03/24/19 Patient has never smoked Exercise Type/Frequency Does not exercise Allergies, Adverse Reactions, Alerts Description No Known Drug Allergies Medications Active Medications SIG Qnty Indications Ordering Date Provider Levetiracetam take 2+1/2 150tabs Lori Osorio, 11/08/2017 500mg tablets by mouth M.D. Tablets two times a day 03/24/19 VNS confirms 2 po bid Aspirin 1 po qam 90tabs Unknown 81mg Tablets Xalatan 1 drop right eye Unknown 0.005% Solution at bedtime Cosopt 1 drop in right Unknown 22.3-6.8mg/ml eye bid Solution Multi Vitamin Daily 1 by mouth every Unknown day Tablets Ibuprofen 200 -600mg tid prn Unknown 200mg pain Tablets Cefazolin Sodium give 2 gm iv Unknown 2GM/20ML every 8 hours Soln Prefill Syringe Medications Administered in Office Medication SIG Qnty Indications Ordering Provider Date Inj, Regadenoson, 0.1 MG Sidney Lawson M.D. 06/08/2014 Injection Inj, Regadenoson, 0.1 MG JANEEN Singleton 06/08/2014 Injection Technetium TC 99M TetrofnilsinSidney M.D. 06/08/2014 Per Unit Dose Up To 40 Millicuries Injection Technetium TC 99M TetrofosminSaray PA 06/08/2014 Per Unit Dose Up To 40 Millicuries Injection Immunizations CPT Code Status Date Vaccine Lot # [id number] Given 09/06/2018 Tdap - Tetanus/Diptheria/Acellular Pertussis [id number] Q2037 Given 06/20/2014 Fluvirin Im 3Yrs And Older Vital Signs Date Vital Result Comment 03/24/2019 3:19pm Height 68.5 inches 5'8.50" Weight 133.31 lb Heart Rate 92 /min BMI (Body Mass Index) 20.0 kg/m2 Ejection Fraction 50%-55% 03/16/19 echo 11/15/2018 2:05pm Height 68.5 inches 5'8.50" Weight 141.00 lb Heart Rate 63 /min BP Systolic Sitting 106 mmHg Rue reg cuff BP Diastolic Sitting 65 mmHg Rue reg cuff O2 % BldC Oximetry 98 % BMI (Body Mass Index) 21.1 kg/m2 Results Test Acquired Date Facility Test Result H/L Range Note Laboratory test 03/07/2019 [facility] Lactic Acid 1.9 mmol/L Normal 0.5-2.0 1 finding [address] [place] [address] [phone] Comp Metabolic 03/07/2019 [facility] Sodium 137 mmol/L Normal 135-145 Panel [address] [place] [address] [phone] Potassium 3.5 mmol/L Normal 3.5-5.0 Chloride 103 mmol/L Normal 101-111 Co2 Carbon Dioxide 25 mmol/L Normal 22-32 Anion Gap 9 mmol/L Normal 2-11 Glucose 181 mg/dL High 70-100 Blood Urea Nitrogen 24 mg/dL Normal 6-24 Creatinine 1.13 mg/dL Normal 0.67-1.17 BUN/Creatinine Ratio 21.2 High 8-20 Calcium 9.0 mg/dL Normal 8.6-10.3 Total Protein 6.8 g/dL Normal 6.4-8.9 Albumin 3.4 g/dL Normal 3.2-5.2 Globulin 3.4 g/dL Normal 2-4 Albumin/Globulin Ratio 1.0 Normal 1-3 Total Bilirubin 0.70 mg/dL Normal 0.2-1.0 Alkaline Phosphatase 61 U/L Normal 34-104 Alt 14 U/L Normal 7-52 Ast 24 U/L Normal 13-39 Egfr Non- 65.5 >60 Egfr 79.3 >60 2 Laboratory test 03/07/2019 [facility] Lipase 21 U/L Normal 11.0-82.0 finding [address] [place] [address] [phone] C Reactive Protein 275.86 mg/L High <8.01 Urinalysis Profile 03/07/2019 [facility] Urine Color Yellow [address] [place] [address] [phone] Urine Appearance Clear Urine Specific [place] 1.032 High 1.010-1.030 Urine pH 6.0 Normal 5-9 Urine Urobilinogen Negative Negative Urine Ketones Negative Negative Urine Protein 1+(30 mg/dL) Abnormal Negative Urine Leukocytes Negative Negative Urine Blood 2+ Abnormal Negative Urine Nitrite Negative Negative Urine Bilirubin Negative Negative Urine Glucose Negative Negative Urine White Blood Cell Trace(0-5/hpf) Absent Urine Red Blood Cell 1+(3-5/hpf) Abnormal Absent Urine Bacteria Absent Absent CBC Auto 03/07/2019 [facility] White Blood 6.4 10^3/uL Normal 3.5-10.[address] [place] [address] [phone] Red Blood Count 4.08 10^6/uL Low 4.18-5.48 Hemoglobin 13.0 g/dL Low 14.0-18.0 Hematocrit 37 % Low 42-52 Mean Corpuscular Volume 91 fL Normal 80-94 Mean Corpuscular Hemoglobin 32 pg High 27-31 Mean Corpuscular HGB Conc 35 g/dL Normal 31-36 Red Cell Distribution Width 14 % Normal 10-15 Abs Neutrophils 5.8 10^3/uL Normal 1.5-7.7 Abs Lymphocytes 0.1 10^3/uL Low 1.0-4.8 Abs Monocytes 0.4 10^3/uL Normal 0-0.8 Abs Eosinophils 0.0 10^3/uL Normal 0-0.6 Abs Basophils 0.0 10^3/uL Normal 0-0.2 Abs Nucleated RBC 0.0 10^3/uL Granulocyte % 90.9 % Lymphocyte % 2.0 % Monocyte % 6.9 % Eosinophil % 0.1 % Basophil % 0.1 % Nucleated Red Blood Cells % 0.0 Platelet Count 81 10^3/uL Low 150-450 Mean Platelet Volume 7.4 fL Normal 7.4-10.4 Laboratory test 03/07/2019 [facility] Pathologist (SEE NOTE) [address] [place] [address] [phone] Urine Culture And 03/07/2019 [facility] Urine Culture SEE RESULT [address] [place] [address] [phone] 1 [facility] Severe Sepsis and Septic Shock Management Bundle Measure requires all lactic acids initially measuring >2.0 mmol/L be repeated. 2 Because ethnic data is not always readily available, this report includes an eGFR for both -Americans and non- Americans. The National Kidney Disease Education Program (NKDEP) does not endorse the use of the MDRD equation for patients that are not between the ages of 18 and 70, are , have extremes of body size, muscle mass, or nutritional status, or are non- or non-. According to the National Kidney Foundation, irrespective of diagnosis, the stage of the disease is based on the level of kidney function: Stage Description GFR(mL/min/1.73 m(2)) 1 Kidney damage with normal or decreased GFR 90 2 Kidney damage with mild decrease in GFR 60-89 3 Moderate decrease in GFR 30-59 4 Severe decrease in GFR 15-29 5 Kidney failure <15 (or dialysis) 3 Normocytic anemia. Moderate thrombocytopenia. No evidence of a hemolytic process. Reactive-appearing lymphocytes. Reviewed by Steph Springer MD 4 SEE RESULT BELOW Name: CRISS GOODMAN : [address]: Alejandro Roblero MD Acct: [id number] Unit: [id number] AGE: 64 Location: [place] [address]- Re03/08/19 SEX: M Status: ADM Lety SPEC: [id number] DANTE: 03/08/19-[address]: Ced Bronson MD REQ: [id number] RECD: 03/08/19 STATUS: SKYE LIMA DR: Otto Agiular III, MD _ SOURCE: URINE SPDESC: ORDERED: Urine Culture Procedure Result Reported Site Urine Culture Final 03/10/19- 0800 ML Organism 1 STAPHYLOCOCCUS AUREUS [place] Count 50-75,000 (Many) CFU/ML Organism 2 NORMAL MAXIMO [place] Count 1-10,000 (Few) CFU/ML 1. STAPHYLOCOCCUS AUREUS M.I.C. RX --------- ------ Penicillin >=0.5 R Gentamicin <=0.5 S Linezolid 2 S Nitrofurantoin 32 S Oxacillin <=0.25 S * Quinupristin/Dalfopristin <=0.25 S Rifampin <=0.5 S Tetracycline <=1 S Doxycycline - Deduced S * Minocycline - Deduced S Trimethoprim/Sulfamethoxazole <=10 S Vancomycin 1 S Imipenem-Deduced S * Ampicillin/Sulbactam-Deduced S Cefazolin-Deduced S CONTINUED ON NEXT PAGE DEPARTMENT OF PATHOLOGY, [address] [place] [address] Juma Quintanilla M.D. Director [facility] # [id number] Specimen: [id number] Collected: 03/08/19-1007 Received: 03/08/19-1016 (Continued) Procedure Result Reported Site Urine Culture Final (continued) * These antibiotics are not available in the [facility] Formulary Contact the Microbiology Department for any additional antibiotic reporting. * ML - Main Lab . END OF REPORT DEPARTMENT OF PATHOLOGY, [address] [place] [address] Juma Quintanilla M.D. Director [facility] # [id number] Procedures Date Code Description Status 03/14/2019 23755 Moderate Sedation Services; Same Phys Intl 15 Mins; PT Completed >= 5 Years 03/14/2019 08204 Color Flow Doppler/Interp & Reprt Completed 03/14/2019 83679 Pulse Wave/Continuous-Interp.RPT Completed 03/14/2019 23509 Echocardiography, Transesophageal, Real Time W/Image Completed 2D W/W/O M-M 03/13/2019 02355 EKG, Interpretation Only Completed 03/12/2019 38424 ECHO Transthorasic Realtime 2D W Doppler & Color Flow Completed Hosp 10/05/2018 [id number] Diabetic Retinal Eye Exam Completed 04/12/2012 [id number] Colonoscopy Completed Medical Devices Description No Information Available Encounters Type Date Location Provider Dx Diagnosis Office Visit 03/15/2019 [facility] Nidia B95.61 Methicillin suscep 9:33a Assoc,pc JANEEN Brown staph infct Hospitalists causing dis classd elswhr A41.9 Sepsis, unspecified organism D69.6 Thrombocytopenia, unspecified G40.909 Epilepsy, unsp, not intractable, without status epilepticus Office 03/14/2019 [facility] [place] T82.7xxA Infect/inflm react Visit 1:27p For Infectious Andie Win d/t oth cardi/vasc Diseases dev/implnt/grft, init B95.61 Methicillin suscep staph infct causing dis classd elswhr M54.5 Low back pain Office Visit 03/14/2019 [facility] Nidia A41.9 Sepsis, 9:32a Assoc,pc Kevin, JANEEN unspecified Hospitalists organism B95.61 Methicillin suscep staph infct causing dis classd elswhr D69.6 Thrombocytopenia, unspecified G40.909 Epilepsy, unsp, not intractable, without status epilepticus Office Visit 03/13/2019 1:25p [facility] [place] R78.81 Bacteremia Infectious Diseases Andie Win B95.61 Methicillin suscep staph infct causing dis classd elswhr R82.71 Bacteriuria Z95.0 Presence of cardiac pacemaker M54.5 Low back pain M53.3 Sacrococcygeal disorders, not elsewhere classified Office Visit 03/13/2019 9:31a [facility] Hector Cardenas R78.81 Bacteremia Assoc, Hospitalists [place] B95.61 Methicillin suscep staph infct causing dis classd elswhr R65.10 Sirs of non-infectious origin w/o acute organ dysfunction G40.909 Epilepsy, unsp, not intractable, without status epilepticus D69.6 Thrombocytopenia, unspecified Office Visit 03/12/2019 9:29a [facility] Hector Cardenas R78.81 Bacteremia Assoc,pc Hospitalists [place] B95.61 Methicillin suscep staph infct causing dis classd elswhr R65.10 Sirs of non-infectious origin w/o acute organ dysfunction G40.909 Epilepsy, unsp, not intractable, without status epilepticus D69.6 Thrombocytopenia, unspecified Office Visit 03/11/2019 9:27a [facility] Hector Cardenas, R78.81 Bacteremia Assoc,pc Hospitalists [place] R65.10 Sirs of non-infectious origin w/o acute organ dysfunction G40.909 Epilepsy, unsp, not intractable, without status epilepticus D69.6 Thrombocytopenia, unspecified Office Visit 03/11/2019 9:57a [facility] Portillo Neely MD M54.5 Low back at [place] pain M25.551 Pain in right hip M25.552 Pain in left hip Office Visit 03/10/2019 [facility] Hector K52.9 Noninfective 9:27a Assoc,JANEEN [place] gastroenteritis and Hospitalists colitis, unspecified R65.10 Sirs of non-infectious origin w/o acute organ dysfunction G40.909 Epilepsy, unsp, not intractable, without status epilepticus 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 and grafts 03/24/2019 Z95.0 Presence of cardiac pacemaker Judi Rowell N.P. 03/24/2019 R94.31 Abnormal electrocardiogram [ECG] Judi Rowell, N.P. [EKG] 03/24/2019 R78.81 Bacteremia Judi Rowell, N.P. 03/15/2019 B95.61 Methicillin susceptible Nidiaoleg Brown, [place] Staphylococcus aureus infection as the cause of diseases classified elsewhere 03/15/2019 A41.9 Sepsis, unspecified organism Nidia Brown, PA 03/15/2019 D69.6 Thrombocytopenia, unspecified Nidia Brown, PA 03/15/2019 G40.909 Epilepsy, unspecified, not Nidia Brown, [place] intractable, without status epilepticus 03/14/2019 A41.9 Sepsis, unspecified organism Nidia Brown, PA 03/14/2019 T82.7xxA Infection and inflammatory reaction [place] Win M.D. due to other cardiac and vascular devices, implants and grafts, initial encounter 03/14/2019 B95.61 Methicillin susceptible Nidia Brown PA Staphylococcus aureus infection as the cause of diseases classified elsewhere 03/14/2019 R78.81 Bacteremia Sidney Lawson M.D. 03/14/2019 D69.6 Thrombocytopenia, unspecified Nidia Brown, PA 03/14/2019 B95.61 Methicillin susceptible [place] Win M.D. Staphylococcus aureus infection as the cause of diseases classified elsewhere 03/14/2019 G40.909 Epilepsy, unspecified, not Nidia Brown, [place] intractable, without status epilepticus 03/14/2019 M54.5 Low back pain [place] Win M.D. 03/13/2019 R78.81 Bacteremia JANEEN Jack 03/13/2019 R94.31 Abnormal electrocardiogram [ECG] Ernesto Mcdonald M.D., [EKG] [facility] 03/13/2019 B95.61 Methicillin susceptible JANEEN Jack Staphylococcus aureus infection as the cause of diseases classified elsewhere 03/13/2019 R78.81 Bacteremia London Win M.D. 03/13/2019 R65.10 Systemic inflammatory response JANEEN Jack syndrome (Sirs) of non-infectious origin without acute organ dysfunction 03/13/2019 B95.61 Methicillin susceptible [place] Win M.D. Staphylococcus aureus infection as the cause of diseases classified elsewhere 03/13/2019 G40.909 Epilepsy, unspecified, not JANEEN Jack intractable, without status epilepticus 03/13/2019 R82.71 Bacteriuria London Win M.D. 03/13/2019 D69.6 Thrombocytopenia, unspecified JANEEN Jack 03/13/2019 Z95.0 Presence of cardiac pacemaker [place] Win M.D. 03/13/2019 M54.5 Low back pain London Win M.D. 03/13/2019 M53.3 Sacrococcygeal disorders, not [place] Win M.D. elsewhere classified 03/12/2019 R78.81 Bacteremia JANEEN Jack 03/12/2019 R78.81 Bacteremia Ernesto Mcdonald M.D., [facility] 03/12/2019 B95.61 Methicillin susceptible JANEEN Jack Staphylococcus aureus infection as the cause of diseases classified elsewhere 03/12/2019 R65.10 Systemic inflammatory response JANEEN Jack syndrome (Sirs) of non-infectious origin without acute organ dysfunction 03/12/2019 G40.909 Epilepsy, unspecified, not JANEEN Jack intractable, without status epilepticus 03/12/2019 D69.6 Thrombocytopenia, unspecified JANEEN Jack 03/11/2019 R78.81 Bacteremia JANEEN Jack 03/11/2019 M54.5 Low back pain Portillo Neely MD 03/11/2019 R65.10 Systemic inflammatory response JANEEN Jack syndrome (Sirs) of non-infectious origin without acute organ dysfunction 03/11/2019 M25.551 Pain in right hip Portillo Neely MD 03/11/2019 G40.909 Epilepsy, unspecified, not JANEEN Jack intractable, without status epilepticus 03/11/2019 M25.552 Pain in left hip Portillo Neely MD 03/11/2019 D69.6 Thrombocytopenia, unspecified JANEEN Jack 03/10/2019 K52.9 Noninfective gastroenteritis and JANEEN Jack colitis, unspecified 03/10/2019 R65.10 Systemic inflammatory response JANEEN Jack syndrome (Sirs) of non-infectious origin without acute organ dysfunction 03/10/2019 G40.909 Epilepsy, unspecified, not [place], [place] intractable, without status epilepticus 03/10/2019 G45.8 Other transient cerebral ischemic Hector Cardenas PA attacks and related syndromes 03/10/2019 D69.6 Thrombocytopenia, unspecified Hector Carden[place], PA 03/09/2019 K52.9 Noninfective gastroenteritis and Hector Carden[place], [place] colitis, unspecified 03/09/2019 R65.10 Systemic inflammatory response Hector Cardenas PA syndrome (Sirs) of non-infectious origin without acute organ dysfunction 03/09/2019 G40.909 Epilepsy, unspecified, not Hector [place], [place] intractable, without status epilepticus 03/09/2019 G45.8 Other transient cerebral ischemic Hector Carden[place], [place] attacks and related syndromes 03/09/2019 D69.6 Thrombocytopenia, unspecified Hector [place], [place] 03/08/2019 K52.9 Noninfective gastroenteritis and Madie Dylan, D.O. colitis, unspecified 03/08/2019 E86.0 Dehydration Madie Dylan, D.O. 03/08/2019 D69.6 Thrombocytopenia, unspecified Madie Dylan, D.O. 03/08/2019 G40.509 Epileptic seizures related to Madie Dylan, D.O. external causes, not intractable, without status epilepticus 11/15/2018 Z01.818 Encounter for other preprocedural Lori Osorio M.D. examination 11/15/2018 H02.105 Unspecified ectropion of left lower Lori Osorio M.D. eyelid 11/15/2018 I44.2 Atrioventricular block, complete Lori Osorio M.D. 11/15/2018 Z95.0 Presence of cardiac pacemaker Lori Osorio M.D. 11/15/2018 G40.909 Epilepsy, unspecified, not Lori Osorio M.D. 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 at [facility]03/29/2019 2:20 pm - Lori Osorio M.D. at [facility] Internal Medicine - [facility]03/24/2019 - Rivera ArnoldPBerkleyZ95.818 Presence of other cardiac implants and graftsFollow up:OV 2-3 mo JFMRecommendations:I will make sure LINQ is transmitting.Z95.0 Presence of cardiac ehpofjxayL42.31 Abnormal electrocardiogram [ECG] [EKG]R78.81 Bacteremia Functional Status Description No Information Available Mental Status Description No Information Available Referrals Description No Information Available
--- OUTSIDE RECORDS SUMMARY | 2019-03-24 16:45 | XMS REPORT ---
:1955 Author Organization [facility] Care Team Providers Name Role Phone Unavailable Unavailable Unavailable Problems Condition Condition Condition Status Onset Resolution Last Treating Comments Name Details Category Date Date Treatment Clinician Date Cardio pacemaker/I Cardiovasc Active 2018- Steph CD ular 05-23 Antonio 16:00: [id number] Respiratory lung sounds Respirator Active 2018- Steph deficit y 05-23 Antonio 16:00: [id number] 00 Endo/Bryce anti-coagul Endo/Bryce Active 2018-04 Steph ation 05-23 Antonio therapy 16:00: [id number] 00 Sensory impaired Sensory Active 2018- Steph verbal 05-23 Antonio communicati 16:00: [id number] on 00 Integument surgical Integument Active 2018-04 Steph wound 05-23 Antonio present 16:00: [id number] 00 Nutrition nutritional Nutrition Active 2018- Steph restriction 05-23 Antonio s 16:00: [id number] 00 Elimination UTI within Eliminatio Active 2018- Steph past 14 n 05-23 Antonoi days 16:00: [id number] 00 Neuro confusion Neuro/Emot Active 2018- Steph present ion 05-23 Antonio 16:00: [id number] 00 Neuro impaired Neuro/Emot Active 2018- Steph decision-ma ion 05-23abo breonna 16:00: [id number] 00 Activity ADL Activity Active 2018- Steph assistance 05-23 Antonio required 16:00: [id number] 00 Activity self-care Activity Active 2018- Steph deficit 05-23 Antonio 16:00: [id number] 00 Safety fall risk Safety Active 2018- Steph factor 05-23 Antonio present 16:00: [id number] 00 Safety risk for Safety Active 2018-04 Steph matthew 05-23 Antonio tion 16:00: [id number] 00 Safety can be left Safety Active 2018-04 Steph foy for 05-23 Antonio only short 16:00: [id number] periods 00 Medication oral med Meds Active 2018-04 Steph assistance 05-23 Antonio required 16:00: [id number] 00 Medication knowledge/s Meds Active 2018-04 Steph kill 05-23 Antonio deficit: pt 16:00: [id number] 00 Allergies, Adverse Reactions, Alerts Allergy Allergy Status Severity Reaction(s) Onset Inactive Treating Comments Name Type Date Date Clinician Unknown None Active Unknown None Unknown No Known Allergies For This Patient Medications Ordered Filled Start Stop Current Ordering Indication Dosage Frequency Signature Comments Components Medication Medication Date Date Medication? Clinician (SIG) Name Name Aspirin Low Aspirin Low 2018-04 Yes Armando Unknown Unknown Dose 81 mg Dose 81 mg 05-23 Parmjit MASON tablet,oliver tablet,oliver yed release yed release ceFAZolin 2 ceFAZolin 2 2018-04 Yes Armando Unknown Unknown gram/20 mL gram/20 mL 05-23 Parmjit MASON in sterile in sterile water water intravenous intravenous syringe syringe dorzolamide dorzolamide 2018-04 Yes Armando Unknown Unknown 22.3 22.3 05-23 Parmjit MASON mg-timolol mg-timolol 6.8 mg/mL 6.8 mg/mL eye drops eye drops heparin heparin 2018-04 Yes Armando Unknown Unknown Lock Flush Lock Flush 05-23 Parmjit MASON (Porcine) (Porcine) (PF) 10 (PF) 10 unit/mL unit/mL intravenous intravenous syringe syringe ibuprofen ibuprofen 2018-04 Yes Armando Unknown Unknown 600 mg 600 mg 05-23 Parmjit MASON tablet tablet levETIRAcet levETIRAcet 2018-04 Yes Armando Unknown Unknown am 1,000 mg am 1,000 mg 05-23 Parmjit MASON tablet tablet sodium sodium 2018-04 Yes Armando Unknown Unknown chloride chloride 05-23 Parmjit MASON 0.9 % 0.9 % injection injection syringe syringe torsemide torsemide 2018-04 Yes Armando Unknown Unknown 10 mg 10 mg 05-23 ,Parmjit tablet tablet Vital Signs Vital Name Observation Time Observation [...]
== END 2019-03-24 19:39 | disposition left against medical advice (07) ==
LOC: ED 16:26
DX: M54.5 Low back pain (principal); Z53.21 Procedure and treatment not carried out due to patient leaving prior to being seen by health care provider
CPT/HCPCS: 99281

== ENCOUNTER 2021-11-11 21:43 | Inpatient (IN) ==
[2021-11-11] MEDS ORDERED: LORazepam 2 mg VIAL 1 ml ONE ×2 (22:12→22:23)
[2021-11-11] MEDS: LORazepam 2 mg VIAL 1 ml IV PUSH PRN ×2 (22:20→22:25)
[2021-11-11] MEDS ORDERED: diazePAM INJ CARPUJECT 5 MG/ML SYRINGE ONE (22:31)
[2021-11-11] MEDS ORDERED: Lorazepam PYXIS KEY PRN (22:40)
[2021-11-11] MEDS ORDERED: diazePAM INJ CARPUJECT 5 MG/ML SYRINGE IV ONE (22:40)
[2021-11-11] MEDS ORDERED: levETIRAcetam 1000MG IVPREMIX 1,000 MG/100 ML BAG IVPB ONE (22:42)
[2021-11-11] MEDS: diazePAM INJ CARPUJECT 5 MG/ML SYRINGE IV ONE ×2 (22:46→22:59)
[2021-11-11 23:08] LABS: ABS Lymphocytes 0.5 10^3/ul (1.0-4.8); ABS Monocytes 0.7 10^3/ul (0-0.8); ABS Neutrophils 6.2 10^3/ul (1.5-7.7); Eosinophil % 0.5 %; Hematocrit 37 % (42-52); Hemoglobin 13.3 g/dL (14.0-18.0); Lymphocyte % 6.2 %; Mean Corpuscular HGB Conc 36 g/dL (31-36); Mean Corpuscular Hemoglobin 33 pg (27-31); Mean Corpuscular Volume 92 fL (80-94); Mean Platelet Volume 7.6 fL (7.4-10.4); Platelet Count 161 10^3/uL (150-450); Red Blood Count 4.05 10^6 /uL (4.18-5.48); Red Cell Distribution Width 15 % (10-15); White Blood Count 7.4 10^3/uL (3.5-10.8)
[2021-11-11] MEDS ORDERED: Midazolam 5 mg/ml concentrated 5 mg/ml 1 ml VIAL ONE (23:09)
[2021-11-11] MEDS: Midazolam 2 mg/2 ml VIAL 1 mg/ml 2 ml VIAL (2 mg) IV SLOW PU ONE (23:11)
[2021-11-11] MEDS ORDERED: Midazolam 5 mg/5 ml VIAL 1 mg/ml 5 ml VIAL (5 mg) IV SLOW PU ONE (23:13)
[2021-11-11 23:15] LABS: INR 0.98 (0.89-1.11)
[2021-11-11] MEDS ORDERED: Midazolam 2 mg/2 ml VIAL 1 mg/ml 2 ml VIAL (2 mg) IV SLOW PU ONE (23:38)
[2021-11-11] MEDS ORDERED: Midazolam 50 MG VIAL IV DRIP 50 ML IV SCH (23:45)
[2021-11-11 23:57] LABS: Albumin 4.1 g/dL (3.2-5.2); Albumin/Globulin Ratio 1.5 (1-3); Globulin 2.8 g/dL (2-4); Magnesium 2.2 mg/dL (1.9-2.7); Potassium 3.8 mmol/L (3.5-5.0); Total Bilirubin 0.5 mg/dL (0.2-1.0); Total Protein 6.9 g/dL (6.4-8.9); eGFR CKD-EPI 65.8 (>60)
[2021-11-12] MEDS: Midazolam 2 mg/2 ml VIAL 1 mg/ml 2 ml VIAL (2 mg) IV SLOW PU ONE (00:01)
[2021-11-12] MEDS: Midazolam 50 MG VIAL IV DRIP 50 ML IV SCH ×2 (00:56→05:08)
[2021-11-12 01:03] LABS: Urine Benzodiazepine Screen Presumptive Positive (None Detect); Urine Cannabinoids Screen Presumptive Positive (None Detect); Urine Opiates Screen None Detected (None Detect)
[2021-11-12] MEDS ORDERED: Valproic Acid IV 1,000 MG in NS 0.9% 100 ml BAG 100 ML IVPB ONE (01:13)
[2021-11-12 01:15] LABS: Urine Appearance Clear; Urine Color Yellow; Urine Ketones Negative (Negative); Urine Protein Negative (Negative); Urine Specific Gravity 1.025 (1.005-1.030); Urine Urobilinogen 0.2 (Negative) (Negative)
[2021-11-12 01:16] LABS: Urine Bilirubin Negative (Negative); Urine Blood Negative (Negative); Urine Glucose Negative (Negative); Urine Nitrite Negative (Negative)
[2021-11-12] MEDS ORDERED: Ondansetron 4 mg VIAL 2 MG/ML 2 ml VIAL IV PRN (01:20)
[2021-11-12] MEDS ORDERED: Dexmedetomidine 1,000 MCG in NS 0.9% 250 ml 240 ML IV SCH (02:00)
[2021-11-12 02:30] LABS: PCO2 Arterial 47 mmHg (35-45); PO2 Arterial 159 mmHg (80-100)
[2021-11-12 02:58] LABS: Calcium 7.6 mg/dL (8.6-10.3); Potassium 3.5 mmol/L (3.5-5.0); eGFR CKD-EPI 95.8 (>60)
[2021-11-12] MEDS: Enoxaparin 40 MG/0.4 ML SYR SUBCUT SCH (03:09)
[2021-11-12 04:42] LABS: ABS Lymphocytes 0.5 10^3/ul (1.0-4.8); ABS Monocytes 0.5 10^3/ul (0-0.8); ABS Neutrophils 5.4 10^3/ul (1.5-7.7); Eosinophil % 0.1 %; Hematocrit 34 % (42-52); Hemoglobin 11.9 g/dL (14.0-18.0); Mean Corpuscular HGB Conc 35 g/dL (31-36); Mean Corpuscular Hemoglobin 32 pg (27-31); Mean Corpuscular Volume 90 fL (80-94); Mean Platelet Volume 7.4 fL (7.4-10.4); Platelet Count 153 10^3/uL (150-450); Red Blood Count 3.79 10^6 /uL (4.18-5.48); Red Cell Distribution Width 15 % (10-15); White Blood Count 6.5 10^3/uL (3.5-10.8)
[2021-11-12 05:18] LABS: ALT 8 U/L (7-52); AST 18 U/L (13-39); Albumin 3.8 g/dL (3.2-5.2); Albumin/Globulin Ratio 1.7 (1-3); Alkaline Phosphatase 59 U/L (35-149); Anion Gap 6 mmol/L (2-11); Blood Urea Nitrogen 12 mg/dL (6-24); CO2 Carbon Dioxide 25 mmol/L (22-32); Calcium 8.6 mg/dL (8.6-10.3); Chloride 108 mmol/L (101-111); Globulin 2.3 g/dL (2-4); Glucose 105 mg/dL (70-100); Magnesium 2.2 mg/dL (1.9-2.7); Phosphorus 3.5 mg/dL (2.5-5.0); Potassium 4.1 mmol/L (3.5-5.0); Sodium 139 mmol/L (135-145); Total Protein 6.1 g/dL (6.4-8.9); eGFR CKD-EPI 87.7 (>60)
[2021-11-12] MEDS: Lactated Ringers 1000 ml BAG 1,000 ML IV SCH ×2 (07:30→21:04)
[2021-11-12 09:21] LABS: Alcohol, S < 13 mg/dL (<13); C Reactive Protein 2.15 mg/L (<8.01)
[2021-11-12 10:46] LABS: Erythrocyte Sed Rate 14 mm/Hr (0-19)
[2021-11-12] MEDS ORDERED: levETIRAcetam 1000MG IVPREMIX 1,000 MG/100 ML BAG IVPB SCH (12:00)
[2021-11-12] MEDS ORDERED: Rocuronium 50 mg VIAL 10 mg/ml 5 ml VIAL (50 mg) ONE (12:30)
[2021-11-12] MEDS ORDERED: Etomidate 40 mg/20 ml (2 MG/ML) 20 ml VIAL (40 mg) ONE (12:30)
[2021-11-12] MEDS: Hydrocortisone INJ 100 MG/2ML 2 ML VIAL IV SCH ×2 (12:42→19:30)
[2021-11-12] MEDS: Pantoprazole VIAL 40 MG VIAL IV SCH (12:42)
[2021-11-12] MEDS: cefTRIAXone 1 gm/50 mL D5W 1 GM/50 ML BAG IV SCH (15:32)
[2021-11-12 15:38] LABS: Body Fluid Source Cerebral Spinal
[2021-11-12 15:57] LABS: CSF Glucose 70 mg/dL (40-70)
[2021-11-12 17:21] LABS: Body Fluid Appearance Clear; Body Fluid Color Colorless; CSF Tube # 4
[2021-11-12 17:52] LABS: Body Fluid Total Cells Counted 6; Body Fluid WBC 1 /mcL
[2021-11-12] MEDS: levETIRAcetam IV 1,250 MG in NS 0.9% 100 ml BAG 100 ML IVPB SCH (21:05)
[2021-11-13] MEDS: Enoxaparin 40 MG/0.4 ML SYR SUBCUT SCH (03:24)
[2021-11-13] MEDS: Hydrocortisone INJ 100 MG/2ML 2 ML VIAL IV SCH (03:25)
[2021-11-13 05:04] LABS: ABS Lymphocytes 0.4 10^3/ul (1.0-4.8); ABS Monocytes 0.3 10^3/ul (0-0.8); ABS Neutrophils 6.1 10^3/ul (1.5-7.7); Eosinophil % 0.1 %; Hematocrit 36 % (42-52); Hemoglobin 12.2 g/dL (14.0-18.0); Lymphocyte % 5.4 %; Mean Corpuscular HGB Conc 34 g/dL (31-36); Mean Corpuscular Hemoglobin 31 pg (27-31); Mean Corpuscular Volume 91 fL (80-94); Mean Platelet Volume 8.4 fL (7.4-10.4); Platelet Count 190 10^3/uL (150-450); Red Blood Count 3.94 10^6 /uL (4.18-5.48); Red Cell Distribution Width 15 % (10-15); White Blood Count 6.7 10^3/uL (3.5-10.8)
[2021-11-13 05:12] LABS: INR 1.03 (0.89-1.11)
[2021-11-13 05:42] LABS: Blood Urea Nitrogen 12 mg/dL (6-24); CO2 Carbon Dioxide 22 mmol/L (22-32); Calcium 8.1 mg/dL (8.6-10.3); Chloride 111 mmol/L (101-111); Glucose 113 mg/dL (70-100); Sodium 139 mmol/L (135-145); eGFR CKD-EPI 97.8 (>60)
[2021-11-13 05:43] LABS: Anion Gap 6 mmol/L (2-11)
[2021-11-13] MEDS ORDERED: Lactulose 30 ml UDC PO ONE (06:28)
[2021-11-13] MEDS: levETIRAcetam IV 1,250 MG in NS 0.9% 100 ml BAG 100 ML IVPB SCH (09:41)
[2021-11-13] MEDS: Pantoprazole VIAL 40 MG VIAL IV SCH (09:42)
[2021-11-13] MEDS: Lactated Ringers 1000 ml BAG 1,000 ML IV SCH (11:09)
[2021-11-13] MEDS ORDERED: Hydrocortisone INJ 100 MG/2ML 2 ML VIAL IV SCH (12:00)
[2021-11-13] MEDS: cefTRIAXone 1 gm/50 mL D5W 1 GM/50 ML BAG IV SCH (13:36)
[2021-11-13] MEDS: Dorzolamide/Timolol OPTH (NF) 10 ML BOT BOTH EYES SCH (20:17)
[2021-11-14] MEDS: Lactated Ringers 1000 ml BAG 1,000 ML IV SCH (00:47)
[2021-11-14] MEDS: Enoxaparin 40 MG/0.4 ML SYR SUBCUT SCH (01:18)
[2021-11-14 06:00] LABS: ABS Monocytes 0.5 10^3/ul (0-0.8); ABS Neutrophils 2.8 10^3/ul (1.5-7.7); Eosinophil % 0.5 %; Hematocrit 31 % (42-52); Hemoglobin 10.6 g/dL (14.0-18.0); Lymphocyte % 22.5 %; Mean Corpuscular HGB Conc 34 g/dL (31-36); Mean Corpuscular Hemoglobin 31 pg (27-31); Mean Corpuscular Volume 91 fL (80-94); Mean Platelet Volume 7.8 fL (7.4-10.4); Nucleated Red Blood Cells % 0.1; Platelet Count 139 10^3/uL (150-450); Red Blood Count 3.44 10^6 /uL (4.18-5.48); Red Cell Distribution Width 15 % (10-15); White Blood Count 4.4 10^3/uL (3.5-10.8)
[2021-11-14 06:34] LABS: Calcium 7.9 mg/dL (8.6-10.3); Magnesium 1.7 mg/dL (1.9-2.7); Potassium 4.1 mmol/L (3.5-5.0); eGFR CKD-EPI 95.8 (>60)
[2021-11-14] MEDS ORDERED: Magnesium Sulfate 2 gm BAG 2 GM/50 ML BAG IVPB ONE (07:24)
[2021-11-14] MEDS: Aspirin EC 81 mg TAB.EC (enteric coated) PO SCH (08:51)
[2021-11-14] MEDS ORDERED: Cosyntropin 0.25 MG VIAL IV ONE (09:00)
[2021-11-14] MEDS: Dorzolamide/Timolol OPTH (NF) 10 ML BOT BOTH EYES SCH ×2 (10:54→22:01)
[2021-11-14] MEDS: cefTRIAXone 1 gm/50 mL D5W 1 GM/50 ML BAG IV SCH (14:32)
[2021-11-14] MEDS ORDERED: Gadoteridol (CONTRAST) 279.3 MG/ML 10 ML IV ONE (19:32)
[2021-11-15] MEDS: Enoxaparin 40 MG/0.4 ML SYR SUBCUT SCH (03:06)
[2021-11-15 06:28] LABS: ABS Eosinophils 0.1 10^3/ul (0-0.6); ABS Lymphocytes 0.8 10^3/ul (1.0-4.8); ABS Monocytes 0.5 10^3/ul (0-0.8); ABS Neutrophils 2.6 10^3/ul (1.5-7.7); Eosinophil % 1.7 %; Hematocrit 35 % (42-52); Hemoglobin 12.8 g/dL (14.0-18.0); Lymphocyte % 20.2 %; Mean Corpuscular HGB Conc 37 g/dL (31-36); Mean Corpuscular Hemoglobin 34 pg (27-31); Mean Corpuscular Volume 91 fL (80-94); Mean Platelet Volume 8.2 fL (7.4-10.4); Platelet Count 130 10^3/uL (150-450); Red Blood Count 3.83 10^6 /uL (4.18-5.48); Red Cell Distribution Width 15 % (10-15)
[2021-11-15 07:13] LABS: Magnesium 1.9 mg/dL (1.9-2.7); eGFR CKD-EPI 102.3 (>60)
[2021-11-15] MEDS: Aspirin EC 81 mg TAB.EC (enteric coated) PO SCH (09:33)
[2021-11-15] MEDS: Dorzolamide/Timolol OPTH (NF) 10 ML BOT BOTH EYES SCH (09:33)
[2021-11-15 11:20] VITALS: BP 128/64
[2021-11-17 20:16] LABS: CSF West Nile Virus IgG Ab Negative (Negative); CSF West Nile Virus IgM Ab Negative (Negative)
[2021-11-20 10:13] LABS: AGNA-1, CSF Negative titer (<1:2); ANNA-1, CSF Negative titer (<1:2); ANNA-2, CSF Negative titer (<1:2); ANNA-3, CSF Negative titer (<1:2); Amphiphysin Ab, CSF Negative titer (<1:2); CRMP-5-IgG, CSF Negative titer (<1:2); PCA-1, CSF Negative titer (<1:2); PCA-2, CSF Negative titer (<1:2); PCA-Tr, CSF Negative titer (<1:2)
== END 2021-11-15 10:45 | disposition home or self-care (01) | DRG 100 ==
LOC: ED 21:43 → EDHOLD 11-12 01:20 → ICU 11-12 02:09
PROVIDERS: ADMIT Internal Medicine; ATTEND Internal Medicine